=== PATIENT | male | born 1955 | race Caucasian/White ===

== ENCOUNTER 2017-02-21 09:50 | Emergency (ER) | payer MEDICARE ==
[2017-02-21 09:58] VITALS: BP 163/107; PULSE 104; TEMP 98.3; BMI 27.8
--- NOTE | 2017-02-21 10:54 | PDOC ---
History of Present Illness - General Chief Complaint: Pain Stated Complaint: rectal,abd PAIN,rash Time Seen by Provider: 02/21/17 10:19 - History of Present Illness Initial Comments: 02/21/17 10:46 61 yo M with h/o HTN, schitzoaffective, untreaed hep C, alpha 1 antitrypsin deficiency, and GERD who presents with abdominal pain. Reports for the past 2 weeks has been experiencing diffuse, worsening, crampy abdominal pain associated with nausea, fatigue, and loss of appetite. No identifiable alleviating or aggravating factors. Believes most of his pain is masked with methadone in daytime. Reports paroxysms of burning, sharp, shooting rectal pain not associated with bowel movements. States that he has lost 18 pounds in 2 months. Also endorses constipation attributed to Methadone treatment. Last bowel movement was yesterday and has had dark liquid stool. Denies blood in stool vomiting, hematemsis, fever/chills, SOB, cough, or urinary complaints. States that he has developed pruitic rash of upper extremities in past 2 weeks along with testicular shrinkage and pain. He believes that parasites are infecting his body and that he may possibly have cancer. He states that"black dots are exiting his pores," and has provided stool samples and of a previous hospitalization and Reports alcohol cessation 13 years ago denies tobacco use but states he uses vapor cigarettes 27 mg nicotine/day for past several years. Denies elicit drug use. No recent travels, camping, or hiking. Endorses increased PO fluid intake to help with symptoms. 02/21/17 12:07 Past History - Past Medical History Allergies/Adverse Reactions: Allergies Allergy/AdvReac Type Severity Reaction Status Date / Time Penicillins Allergy Mild Hives Verified 02/21/17 09:53 Home Medications: Ambulatory Orders Omeprazole [Prilosec] 40 mg PO DAILY 11/08/11 Quetiapine Fumarate [Seroquel -] 300 mg PO HS 07/01/13 Clonazepam [KlonoPIN] 2 mg PO DAILY 10/01/14 Methadone [Dolophine -] 110 mg PO DAILY 10/01/14 Quetiapine Fumarate [Seroquel -] 100 mg PO AM 10/01/14 Anemia: Yes (D/T ESOPHAGEAL VARICES) Asthma: Yes Cardiac Disorders: No CVA: No COPD: Yes Diabetes: No GI Disorders: Yes (ACID REFLUX) Disorders: No HTN: Yes Hypercholesterolemia: No Kidney Stones: No Psychiatric Problems: Yes (SCHIZO-AFFECTIVE.) Suicide Attempt (Hx): Yes (Last in 2009 tried to overdose. DENIES CURRENT IDEATIONS.) Seizures: Yes Other medical history: hx of heroin abuse - Surgical History Abdominal Surgery: Yes (esophageal varices) Appendectomy: No Cardiac Surgery: No Cholecystectomy: No Lung Surgery: No Neurologic Surgery: No Orthopedic Surgery: No - Reproductive History Testicular Surgery: No - Psycho/Social/Smoking Cessation Hx Anxiety: Yes Suicidal Ideation: No Smoking History: Former smoker Have you smoked in the past 12 months: No Number of Cigarettes Smoked Daily: 0 If you are a former smoker, when did you quit?: 06/2013 Cigars Per Day: 0 Information on smoking cessation initiated: No 'Breaking Loose' booklet given: 08/01/14 Hx Alcohol Use: No Drug/Substance Use Hx: Yes (hx of heroin abuse) Substance Use Type: None Hx Substance Use Treatment: Yes ([facility]) Review of Systems - Review of Systems Comments:: 02/21/17 11:11 GENERAL/CONSTITUTIONAL: No fever or chills. No weakness. HEAD, EYES, EARS, NOSE AND THROAT: + Neck pain. No change in vision. No ear pain or discharge. No sore throat.- CARDIOVASCULAR: No chest pain or shortness of breath RESPIRATORY: No cough, wheezing, or hemoptysis. GASTROINTESTINAL: + nausea and consitpation. No vomiting, diarrhea or constipation. GENITOURINARY: No dysuria, frequency, or change in urination. MUSCULOSKELETAL: No joint or muscle swelling or pain. No neck or back pain. SKIN: + rash NEUROLOGIC: + LE parasthesias. No headache, vertigo, loss of consciousness, or change in strength/sensation. ENDOCRINE: No increased thirst. No abnormal weight change HEMATOLOGIC/LYMPHATIC: No anemia, easy bleeding, or history of blood clots. ALLERGIC/IMMUNOLOGIC: No hives or skin allergy. *Physical Exam - Vital Signs Last Vital Signs Temp Pulse Resp BP Pulse Ox 98.3 F 104 H 18 163/107 98 02/21/17 09:54 02/21/17 09:54 02/21/17 09:54 02/21/17 09:54 02/21/17 09:54 - Physical Exam Comments: 02/21/17 11:14 GENERAL: Awake, alert, and fully oriented, in no acute distress HEAD: No signs of trauma, normocephalic, atraumatic EYES: PERRLA, EOMI, sclera anicteric, conjunctiva clear ENT: Auricles normal inspection, hearing grossly normal, nares patent, oropharynx clear without exudates. Moist mucosa NECK: Normal ROM, supple, no lymphadenopathy, JVD, or masses LUNGS: No distress, speaks full sentences, clear to auscultation bilaterally HEART: Regular rate and rhythm, normal S1 and S2, no murmurs, rubs or gallops, peripheral pulses normal and equal bilaterally. ABDOMEN: Nondistended, Soft, nontender, normoactive bowel sounds. No guarding, no rebound. No masses + Perirectal erythema EXTREMITIES: Normal inspection, Normal range of motion, no edema. No clubbing or cyanosis. SKIN: + circular excoriations present over upper and lower extremities. Warm, Dry, normal turgor, no rashes or lesions noted. ED Treatment Course - LABORATORY CBC & Chemistry Diagram: 02/21/17 10:48 02/21/17 11:20 Medical Decision Making - Medical Decision Making 02/21/17 11:19 61 yo M with h/o HTN, schitzoaffective, untreaed hep C, alpha 1 antitrypsin deficiency, and GERD who presents with abdominal pain. Complains of crampy abdominal pain of 2 weeks duration. Abdominal pain associated with spells of burning rectal pain. Also complains of pruitic rash of upper extremities and lower extremities, testicular shrinkage/pain. Physical exam unremarkable. He believes that parasites are infecting his body and that he may possibly have cancer. He states that "black dots are exiting his pores," and has provided home stool samples . Reports alcohol cessation 13 years ago denies tobacco use but states he uses vapor cigarettes 27 mg nicotine/day for past several years. Denies elicit drug use. No recent travels, camping, or hiking. DDx: Cirrhosis, scabies, ED Course: CBC, CMP, PT/INR, Trop UA Permethrin 5% Topical Cream 02/21/17 15:02 Cardiac labs unremarkable UA Neg Stable discharge *DC/Admit/Observation/Transfer Diagnosis at time of Disposition: Infestation by Sarcoptes scabiei - Discharge Dispostion Disposition: HOME Condition at time of disposition: Improved Admit: No - Referrals Referrals: Arturo Madrid [Primary Care Provider] - - Patient Instructions Printed Discharge Instructions: DI for Scabies Additional Instructions: Please return to ED if you experience any worsening abdominal pain, nausea, or vomiting.
[2017-02-21 11:36] LABS: BASOPHIL 0.5 % (0-2.0); EOSINOPHIL 0.4 % (0-4.5); MCH 27.3 pg (25.7-33.7); MCHC 31.5 g/dl (32.0-35.9); MEAN CELL VOLUME 86.5 fl (80-96); MEAN PLT VOLUME 7.3 fl (7.5-11.1); NEUTROPHILS 56.8 % (42.8-82.8); PLATELET COUNT 250 K/MM3 (134-434); RDW 22.7 % (11.9-15.9); WHITE BLOOD COUNT 2.8 K/mm3 (4.0-10.0)
[2017-02-21 11:48] LABS: ALBUMIN 3.9 g/dl (3.4-5.0); ANION GAP 5 (8-16); BILIRUBIN,TOTAL 0.2 mg/dL (0.2-1.0); CALCIUM 9.2 mg/dL (8.5-10.1); CO2 32 mmol/L (21-32); CREATININE 0.9 mg/dL (0.7-1.3); GLUCOSE,RANDOM 87 mg/dL (74-106); SGOT/AST 19 U/L (15-37); SGPT/ALT 29 U/L (12-78); TOT PROT 7.6 g/dl (6.4-8.2)
[2017-02-21 11:49] LABS: ALK PHOS 97 U/L (45-117)
[2017-02-21] MEDS ORDERED: PERMETHRIN 5% TOPICAL CREAM 60 GM TUBE TP ONE (12:25)
--- NOTE | 2017-02-21 12:45 | PDOC ---
Attending Attestation - Resident Resident Name: Tacho Soriano - ED Attending Attestation I have performed the following: I have examined & evaluated the patient, The case was reviewed & discussed with the resident, I agree w/resident's findings & plan, Exceptions are as noted - HPI HPI: 02/21/17 12:41 61-year-old male with multiple medical problems including schizoaffective disorder, hepatitis C, opiate dependence on methadone presents with variable complaints over unclear amount of time, most specifically he is here for new onset rash that is similar to past bouts of scabies. He is requesting permethrin cream. Vague abdominal complaints that are chronic. - Physicial Exam PE: 02/21/17 12:42 Vital signs normal, afebrile. Alert, cooperative. No active hallucinations or ideations. Abdomen is benign. Has container of "parasites" that he feels are falling out of his body. These are in fact inanimate objects, ? debris from the apartment neuro intact skin with scattered maculopapular lesions to arms, no confluent cellulitis/ abscess - Medical Decision Making 02/21/17 12:44 Patient seen and evaluated with the resident. I agree with the overall evaluation, assessment, and management with the following summary of visit: 61-year-old male with multiple complaints, specifically here for new onset rash that he feels this is scabies. Requesting permethrin, remaining complaints are nonspecific and chronic without red flags on history or physical exam. Labs show no evidence of anemia or leukocytosis or electrolyte abnormality No indication for emergent imaging We'll give permethrin and discharge with PMD follow-up Understands return criteria
[2017-02-21 13:07] LABS: ANISOCYTOSIS 1+; MICROCYTOSIS FEW; TEAR DROP CELLS 1+
[2017-02-21 13:09] LABS: URINE APPEARANCE CLEAR; URINE BILIRUBIN NEGATIVE (NEGATIVE); URINE BLOOD NEGATIVE (NEGATIVE); URINE COLOR LTYELLOW; URINE GLUCOSE (UA) NEGATIVE (NEGATIVE); URINE KETONE NEGATIVE (NEGATIVE); URINE LEUK ESTERASE TRACE (NEGATIVE); URINE NITRITE NEGATIVE (NEGATIVE); URINE PROTEIN NEGATIVE (NEGATIVE); URINE UROBILINOGEN NEGATIVE mg/dL (0.2-1.0)
[2017-02-21 13:20] LABS: URINE HYALINE CAST 13 /lpf; URINE MUCUS FEW; URINE WBC <1 /hpf (3-5)
[2017-02-21 13:37] LABS: TROPONIN I < 0.02 ng/ml (0.00-0.05)
[2017-02-21 13:38] LABS: CPK 123 IU/L (39-308)
[2017-02-21 14:09] LABS: HIV 1 & 2 AB NEGATIVE; HIV 1 AGp24 NEGATIVE
== END 2017-02-21 15:11 | disposition home or self-care (01) ==
LOC: JER 09:50
DX: B86 Scabies (principal)
CPT/HCPCS: 36415; 80053; 81003; 81015; 83690; 84484; 85025; 87389; 99282-25

== ENCOUNTER 2017-03-07 09:09 | Emergency (ER) | payer MEDICARE ==
[2017-03-07 09:23] VITALS: BP 126/85; PULSE 91; TEMP 99.3; BMI 26.4
--- NOTE | 2017-03-07 09:28 | PDOC ---
History of Present Illness - General Chief Complaint: Pain Stated Complaint: abdominal pain Time Seen by Provider: 03/07/17 09:27 - History of Present Illness Initial Comments: 03/07/17 09:28 61 yo male with 61 yo M with h/o schitzoaffective disorder and HCV and multiple ED visits with c/o abdominal pain and "intestinal tapeworms" since November presenting with c/o abdominal tape word leukopenic on last visit and endorses leukopenia (1.9) at [facility] fungal infection evidence of bug bites Ddx: Psychogenic, bug bites, drug induced leukopenia,Candidal intertrigo Plan CBC, CMP Evaluate for cellulitis topical Nystatin Reassess 03/07/17 13:41 Past History - Past Medical History Allergies/Adverse Reactions: Allergies Allergy/AdvReac Type Severity Reaction Status Date / Time Penicillins Allergy Mild Hives Verified 02/21/17 09:53 Home Medications: Ambulatory Orders Omeprazole [Prilosec] 40 mg PO DAILY 11/08/11 Quetiapine Fumarate [Seroquel -] 300 mg PO HS 07/01/13 Clonazepam [KlonoPIN] 2 mg PO DAILY 10/01/14 Methadone [Dolophine -] 100 mg PO DAILY 10/01/14 Quetiapine Fumarate [Seroquel -] 100 mg PO AM 10/01/14 Clonidine HCl [Clonidine HCl ER] 0.1 mg PO BID 03/07/17 Anemia: Yes (D/T ESOPHAGEAL VARICES) Asthma: Yes Cardiac Disorders: No CVA: No COPD: Yes Diabetes: No GI Disorders: Yes (ACID REFLUX) Disorders: No HTN: Yes Hypercholesterolemia: No Kidney Stones: No Psychiatric Problems: Yes (SCHIZO-AFFECTIVE.) Suicide Attempt (Hx): Yes (Last in 2009 tried to overdose. DENIES CURRENT IDEATIONS.) Seizures: Yes Other medical history: SCABBIES - Surgical History Abdominal Surgery: Yes (esophageal varices) Appendectomy: No Cardiac Surgery: No Cholecystectomy: No Lung Surgery: No Neurologic Surgery: No Orthopedic Surgery: No - Reproductive History Testicular Surgery: No - Psycho/Social/Smoking Cessation Hx Anxiety: No Suicidal Ideation: No Smoking History: Former smoker Have you smoked in the past 12 months: No Number of Cigarettes Smoked Daily: 0 If you are a former smoker, when did you quit?: 2013 Cigars Per Day: 0 Information on smoking cessation initiated: No 'Breaking Loose' booklet given: 08/01/14 Hx Alcohol Use: Yes (hx) Drug/Substance Use Hx: Yes (methadone) Substance Use Type: None Hx Substance Use Treatment: Yes ([facility]) *Physical Exam - Vital Signs Last Vital Signs Temp Pulse Resp BP Pulse Ox 99.3 F 91 H 19 126/85 97 03/07/17 09:20 03/07/17 09:20 03/07/17 09:20 03/07/17 09:20 03/07/17 09:20 ED Treatment Course - LABORATORY CBC & Chemistry Diagram: 03/07/17 11:46 03/07/17 11:46 Medical Decision Making - Medical Decision Making 03/07/17 09:28 03/07/17 12:37 Checked on patient who is sleeping in bed. 03/07/17 13:36 03/07/17 13:36 CBC WBC 1.9 K/mm3 (4.0-10.0) L* D 03/07/17 11:46 RBC 3.05 M/mm3 (4.00-5.60) L D 03/07/17 11:46 Hgb 8.4 GM/dL (11.7-16.9) L D 03/07/17 11:46 Hct 26.6 % (35.4-49) L D 03/07/17 11:46 MCV 87.1 fl (80-96) 03/07/17 11:46 MCH 27.6 pg (25.7-33.7) 03/07/17 11:46 MCHC 31.7 g/dl (32.0-35.9) L 03/07/17 11:46 RDW 19.9 % (11.9-15.9) H D 03/07/17 11:46 Plt Count 167 K/MM3 (134-434) D 03/07/17 11:46 MPV 7.7 fl (7.5-11.1) 03/07/17 11:46 Neutrophils % 59.4 % (42.8-82.8) 03/07/17 11:46 Lymphocytes % 37.5 % (8-40) 03/07/17 11:46 Monocytes % 1.2 % (3.8-10.2) L 03/07/17 11:46 Eosinophils % 1.7 % (0-4.5) D 03/07/17 11:46 Basophils % 0.2 % (0-2.0) 03/07/17 11:46 Worsening pancytopenia CMP Sodium 141 mmol/L (136-145) 03/07/17 11:46 Potassium 4.2 mmol/L (3.5-5.1) 03/07/17 11:46 Chloride 104 mmol/L (98-107) 03/07/17 11:46 Carbon Dioxide 30 mmol/L (21-32) 03/07/17 11:46 Anion Gap 7 (8-16) L 03/07/17 11:46 BUN 9 mg/dL (7-18) D 03/07/17 11:46 Creatinine 0.7 mg/dL (0.7-1.3) D 03/07/17 11:46 Creat Clearance w eGFR > 60 (>60) 03/07/17 11:46 Random Glucose 81 mg/dL (74-106) 03/07/17 11:46 Calcium 8.1 mg/dL (8.5-10.1) L 03/07/17 11:46 Total Bilirubin 0.2 mg/dL (0.2-1.0) 03/07/17 11:46 AST 17 U/L (15-37) 03/07/17 11:46 ALT 31 U/L (12-78) 03/07/17 11:46 Alkaline Phosphatase 114 U/L (45-117) 03/07/17 11:46 Total Protein 5.7 g/dl (6.4-8.2) L D 03/07/17 11:46 Albumin 2.6 g/dl (3.4-5.0) L D 03/07/17 11:46 poor nutrition Put in call to Dr. De Santiago (admitting for Dr. Hutchinson) to request admission d/t pancytopenia and concern over patient ability to followup 03/07/17 15:17 Patient obscounded from the ED Attempted to call patient contact number and it was disconnected Contacted the office of Dr. Madrid, and informed him of the patient's condition Called patient contact numbers from Dr. Madrid [phone] (home) - left message that he should follow up with PCP [phone] (emergency) - person who answered claimed it was not a valid number. 03/07/17 15:39 *DC/Admit/Observation/Transfer Diagnosis at time of Disposition: Eloped - Discharge Dispostion Disposition: ELOPED - Referrals Referrals: Arturo Madrid [Primary Care Provider] -
[2017-03-07 12:04] LABS: BASOPHIL 0.2 % (0-2.0); EOSINOPHIL 1.7 % (0-4.5); MCH 27.6 pg (25.7-33.7); MCHC 31.7 g/dl (32.0-35.9); MEAN CELL VOLUME 87.1 fl (80-96); MEAN PLT VOLUME 7.7 fl (7.5-11.1); NEUTROPHILS 59.4 % (42.8-82.8); PLATELET COUNT 167 K/MM3 (134-434); RDW 19.9 % (11.9-15.9)
--- NOTE | 2017-03-07 12:10 | PDOC ---
Attending Attestation - Resident Resident Name: Alfonso Hartman - ED Attending Attestation I have performed the following: I have examined & evaluated the patient, The case was reviewed & discussed with the resident, I agree w/resident's findings & plan, Exceptions are as noted - HPI HPI: 03/07/17 12:06 61y/o M p/w c/o seeing tapeworms come out of his body. states affecting his appetite but no specific pain or obstructive/infectious sxs other than reported diarrhea seen here for similar complaints (plus rash at the time) on 02/21. Rash improved with permethrin - Physicial Exam PE: 03/07/17 12:08 VSS well appearing in stretcher resolving skin lesions, now isolated maculopapular on the distal arms without cellulitis/abscess abdomen benign has scattered debris collected in a bottle at bedside that he is referring to as tapeworms - Medical Decision Making 03/07/17 12:09 61y/o M with nonspecific, persistent complaints. ? severe anxiety v. VH, denies any SI/HI/AH. reportedly told by his PCP to see psych but noncompliant in the past, no other acute psych issues. abdomen benign, no red flags on history/ physical exam check basic labs discuss with patient whether he is willing to see psychiatry here reassess/dispo 03/07/17 13:37 labs notable for gradual and progressive pancytopenia. Will arrange admission <Tha Calvert - Last Filed: 03/07/17 13:37> - Medical Decision Making 03/07/17 14:37 A call was placed to Dr. Gómez at 1:45 PM at his office. Awaiting on a call back. A call was placed to Dr. Gómez at 2:08 PM at his service. Awaiting on a call back. A call was placed to Dr. Gómez at 2:33 PM. Case was discussed with Dr. Gómez at 2:36 PM. <Randi Lopez - Last Filed: 03/07/17 14:37>
[2017-03-07 13:01] LABS: WHITE BLOOD COUNT 1.9 K/mm3 (4.0-10.0)
[2017-03-07 13:16] LABS: GLUCOSE,RANDOM 81 mg/dL (74-106)
[2017-03-07 13:17] LABS: ALBUMIN 2.6 g/dl (3.4-5.0); ANION GAP 7 (8-16); BILIRUBIN,TOTAL 0.2 mg/dL (0.2-1.0); CALCIUM 8.1 mg/dL (8.5-10.1); CO2 30 mmol/L (21-32); CREATININE 0.7 mg/dL (0.7-1.3); SGOT/AST 17 U/L (15-37); SGPT/ALT 31 U/L (12-78); TOT PROT 5.7 g/dl (6.4-8.2)
[2017-03-07 13:18] LABS: ALK PHOS 114 U/L (45-117)
== END 2017-03-07 14:35 | disposition left against medical advice (07) ==
LOC: JER 09:09
DX: R10.84 Generalized abdominal pain (principal); F25.9 Schizoaffective disorder, unspecified; Z91.5 Personal history of self-harm
CPT/HCPCS: 36415; 80053; 85025; 99283-25

== ENCOUNTER 2017-04-06 08:05 | Inpatient (IN) | payer MEDICARE ==
[2017-04-06 10:34] VITALS: BMI 30.4
--- NOTE | 2017-04-06 12:57 | HP ---
CIWA Score - CIWA Score Nausea/Vomitin-No Nausea/No Vomiting Muscle Tremors: 4-Moderate,w/Arms Extend Anxiety: 3 Agitation: 4-Moderately Restless Paroxysmal Sweats: 3 Orientation: 0-Oriented Tacttile Disturbances: 0-None Auditory Disturbances: 0-None Visual Disturbances: 0-None Headache: 0-None Present CIWA-Ar Total Score: 14 Admission ROS BHS - HPI Chief Complaint: I am here for detox. Allergies/Adverse Reactions: Allergies Allergy/AdvReac Type Severity Reaction Status Date / Time Penicillins Allergy Severe Hives Verified 04/06/17 10:52 History of Present Illness: pt is a 61yr old male with a history of xanax dependance seeking detox for treatment. Exam Limitations: No Limitations - Ebola screening Have you traveled outside of the country in the last 21 days: No Have you had contact with anyone from an Ebola affected area: No Have you been sick,other than usual withdrawal symptoms: No Do you have a fever: No - Review of Systems Constitutional: Chills, Night Sweats EENT: reports: No Symptoms Reported Respiratory: reports: No Symptoms reported Cardiac: reports: Syncope GI: reports: Constipated, Poor Appetite, Poor Fluid Intake : reports: No Symptoms Reported Musculoskeletal: reports: No Symptoms Reported Integumentary: reports: Flushing, Sweating Neuro: reports: Seizure (last seizure 2 yrs ago), Tingling, Tremors Endocrine: reports: Excessive Sweating, Flushing, Intolerance to Cold, Intolerance to Heat Hematology: reports: Anemia Psychiatric: reports: Judgement Intact, Mood/Affect Appropiate, Orientated x3, Agitated, Anxious Other Systems: Reviewed and Negative Patient History - Patient Medical History Hx Anemia: Yes (D/T ESOPHAGEAL VARICES/hemolytic anemia) Hx Asthma: Yes Hx Chronic Obstructive Pulmonary Disease (COPD): No Hx Cancer: No Hx Cardiac Disorders: No Hx Congestive Heart Failure: No Hx Hypertension: Yes Hx Hypercholesterolemia: No Hx Pacemaker: No HX Cerebrovascular Accident: No Hx Seizures: Yes (drug related-last episode was in 2014) Hx Dementia: No Hx Diabetes: No Hx Gastrointestinal Disorders: Yes (acid reflux) Hx Genitourinary Disorders: No Hx Sexually Transmitted Disorders: No Hx Renal Disease (ESRD): No Hx Human Immunodeficiency Virus (HIV): No (NEGATIVE HX) Hx Hepatitis C: Yes (INTERFERON THERAPY IN THE PAST.) Hx Depression: Yes Hx Suicide Attempt: No Hx Bipolar Disorder: No Hx Schizophrenia: Yes (schizoaffective disorder/manic depression) - Patient Surgical History Past Surgical History: Yes Hx Neurologic Surgery: No Hx Cataract Extraction: No Hx Cardiac Surgery: No Hx Lung Surgery: No Hx Breast Surgery: No Hx Breast Biopsy: No Hx Abdominal Surgery: No Hx Appendectomy: No Hx Cholecystectomy: No Hx Genitourinary Surgery: No Hx Section: No Hx Orthopedic Surgery: No Other Surgical History: tonsillectomy Anesthesia Reaction: No - PPD History Previous Implant?: Yes Documented Results: Positive w/o proof Implanted On Prior [facility] Admission?: No PPD to be Administered?: No - Reproductive History Patient is a Female of Child Bearing Age (11 -55 yrs old): No - Smoking Cessation Smoking history: Current every day smoker Have you smoked in the past 12 months: Yes Aproximately how many cigarettes per day: 8 If you are a former smoker, when did you quit?: 2013 Cigars Per Day: 0 Hx Chewing Tobacco Use: No Initiated information on smoking cessation: Yes 'Breaking Loose' booklet given: 04/06/17 - Substance & Tx. History Hx Alcohol Use: No Hx Substance Use: Yes Substance Use Type: Cocaine, Heroin, Tranquilizers Hx Substance Use Treatment: Yes (last detox 2013 [facility], [place]) - Substances Abused Cocaine Route: Injection Frequency: 1-3 times last 30 days Amount used: $10 Age of first use: 18 Date of Last Use: 04/05/17 Heroin Route: Injection Frequency: 1-3 times last 30 days Amount used: 1-2 bags Age of first use: 33 Date of Last Use: 04/04/17 Xanax Route: Oral Frequency: Daily Amount used: 4-6 mg. Age of first use: 33 Date of Last Use: 04/06/17 Family Disease History - Family Disease History Family Disease History: Other: Father (alzheimers ), Mother (neurotic,valium abuse ) Admission Physical Exam S - Vital Signs Vital Signs: Vital Signs - 24 hr 04/06/17 10:30 Temperature 97.1 F L Pulse Rate 78 Respiratory 20 Rate Blood Pressure 155/74 - Physical General Appearance: Yes: Appropriately Dressed, Moderate Distress, Tremorous, Irritable, Sweating, Anxious HEENTM: Yes: Hearing grossly Normal, Normal Voice Respiratory: Yes: Lungs Clear, Normal Breath Sounds, No Respiratory Distress Neck: Yes: No masses,lesions,Nodules Breast: Yes: Within Normal Limits Cardiology: Yes: Regular Rhythm, Regular Rate, S1, S2 Abdominal: Yes: Normal Bowel Sounds, Non Tender, Soft Genitourinary: Yes: Within Normal Limits Back: Yes: Normal Inspection Musculoskeletal: Yes: full range of Motion, Gait Steady Extremities: Yes: Normal Capillary Refill, Normal Inspection, Non-Tender, Tremors Neurological: Yes: Fully Oriented, Alert, Normal Response Integumentary: Yes: Normal Color, Diaphoresis, Track [place]les Lymphatic: Yes: Within Normal Limits - Diagnostic (1) GERD (gastroesophageal reflux disease) Current Visit: Yes Status: Chronic Qualifiers: Esophagitis presence: without esophagitis Qualified Code(s): K21.9 - Gastro-esophageal reflux disease without esophagitis; K21.9 - Gastro- esophageal reflux disease without esophagitis; K21.9 - Gastro-esophageal reflux disease without esophagitis (2) HTN (hypertension) Current Visit: Yes Status: Chronic Qualifiers: Hypertension type: essential hypertension Qualified Code(s): I10 - Essential (primary) hypertension; I10 - Essential (primary) hypertension; I10 - Essential (primary) hypertension (3) Hepatitis C Current Visit: Yes Status: Chronic Qualifiers: Viral hepatitis chronicity: chronic Hepatic coma status: without hepatic coma Qualified Code(s): B18.2 - Chronic viral hepatitis C; B18.2 - Chronic viral hepatitis C; B18.2 - Chronic viral hepatitis C; B18.2 - Chronic viral hepatitis C (4) Methadone maintenance therapy patient Current Visit: Yes Status: Chronic Comment: [facility]. (5) Sedative, hypnotic or anxiolytic dependence with withdrawal, uncomplicated Current Visit: Yes Status: Chronic BHS Breath Alcohol Content Breath Alcohol Content: 0 Urine Drug Screen - Results Drug Screen Negative: No Urine Drug Screen Results: VÍCTOR-Cocaine, OPI-Opiates, BZO-Benzodiazepines, MTD- Methadone, TCA-Tricyclic Antidepress
[2017-04-06] MEDS ORDERED: LOPERAMIDE HCL 2 MG CAPSULE PO PRN (12:58)
[2017-04-06] MEDS ORDERED: diphenhydrAMINE HCL 50 MG CAPSULE PO PRN (12:58)
[2017-04-06] MEDS ORDERED: MENTHOL/PHENOL 1 EACH UD MM PRN (12:58)
[2017-04-06] MEDS ORDERED: MAG HYDROX/AL HYDROX/SIMETH 30 ML UNIT-DOSE CUP PO PRN (12:58)
[2017-04-06] MEDS ORDERED: IBUPROFEN 400 MG TABLET (FP) PO PRN (12:58)
[2017-04-06] MEDS ORDERED: hydrOXYzine PAMOATE 50 MG CAPSULE (FP) PO PRN (12:58)
[2017-04-06] MEDS ORDERED: MAGNESIUM CITRATE 300 ML BOTTLE PO PRN (12:58)
[2017-04-06] MEDS ORDERED: P-EPHED 60MG/TRIPROLIDI 2.5MG TABLET PO PRN (12:58)
[2017-04-06] MEDS ORDERED: guaiFENesin/D-METHORPHAN HB 10 ML UNIT-DOSE CUPS PO PRN (12:58)
[2017-04-06] MEDS ORDERED: diazePAM 5 MG TABLET PO ONE (12:58)
[2017-04-06] MEDS ORDERED: ALBUTEROL SO4 18 GM HFA INHALER IH PRN (13:01)
[2017-04-06] MEDS: diazePAM 5 MG TABLET PO SCH ×2 (14:51→22:12)
[2017-04-06] MEDS: NICOTINE 21 MG/24 HOURS TOPICAL PATCH TD SCH (15:21)
[2017-04-06 16:38] LABS: MCH 28.3 pg (25.7-33.7); MCHC 32.3 g/dl (32.0-35.9); MEAN CELL VOLUME 87.6 fl (80-96); MEAN PLT VOLUME 8.1 fl (7.5-11.1); PLATELET COUNT 115 K/MM3 (134-434); RDW 18.1 % (11.9-15.9)
[2017-04-06 16:41] LABS: WHITE BLOOD COUNT 1.4 K/mm3 (4.0-10.0)
[2017-04-06 17:02] LABS: ALBUMIN 3.2 g/dl (3.4-5.0); ALK PHOS 87 U/L (45-117); ANION GAP 9 (8-16); BILIRUBIN,TOTAL 0.2 mg/dL (0.2-1.0); CALCIUM 8.5 mg/dL (8.5-10.1); CO2 30 mmol/L (21-32); GLUCOSE,RANDOM 110 mg/dL (74-106); SGOT/AST 23 U/L (15-37); SGPT/ALT 19 U/L (12-78); TOT PROT 6.3 g/dl (6.4-8.2)
[2017-04-06 18:18] LABS: PLATELET ESTIMATE SLT DECREASED (NORMAL)
[2017-04-06 18:19] LABS: PLATELET COMMENT2 NO CLOTTING DETECTED; PLATELET COMMENT3 FEW LARGE PLTS; TOTAL CELLS COUNTED 100
--- NOTE | 2017-04-06 18:20 | PN ---
[facility] Progress Note Note: Psychiatry Attending's note : Came to interview this patient. Newly admitted to [address] [place] [id number]. Found sound asleep. Examination deferred.
[2017-04-06] MEDS: diazePAM 5 MG TABLET PO PRN (20:00)
[2017-04-06 20:24] LABS: URINE APPEARANCE CLEAR; URINE BILIRUBIN NEGATIVE (NEGATIVE); URINE BLOOD NEGATIVE (NEGATIVE); URINE COLOR YELLOW; URINE GLUCOSE (UA) NEGATIVE (NEGATIVE); URINE KETONE NEGATIVE (NEGATIVE); URINE NITRITE NEGATIVE (NEGATIVE); URINE PROTEIN NEGATIVE (NEGATIVE); URINE UROBILINOGEN NEGATIVE mg/dL (0.2-1.0)
[2017-04-06] MEDS: THIAMINE HCL 100 MG TABLET (FP) PO SCH (22:12)
[2017-04-06] MEDS: cloNIDine HCL 0.1 MG TABLET PO SCH (22:12)
[2017-04-06 22:38] LABS: URINE LEUK ESTERASE Negative (NEGATIVE)
[2017-04-07] MEDS ORDERED: METHADONE HCL 40 MG DISPERSABLE TABLET ONE (04:28)
[2017-04-07] MEDS ORDERED: METHADONE HCL 10 MG TABLET ONE (04:28)
[2017-04-07] MEDS: diazePAM 5 MG TABLET PO SCH ×3 (05:40→22:26)
[2017-04-07] MEDS: METHADONE 80 MG, METHADONE 20 MG PO SCH (05:41)
[2017-04-07] MEDS ORDERED: METHADONE HCL 10 MG TABLET PO SCH (06:00)
[2017-04-07] MEDS: ACETAMINOPHEN 325 MG TABLET (FP) PO PRN (07:05)
--- NOTE | 2017-04-07 09:30 | EKG ---
Test Reason : Blood Pressure : / mmHG Vent. Rate : 069 BPM Atrial Rate : 069 BPM P-R Int : 138 ms QRS Dur : 086 ms QT Int : 452 ms P-R-T Axes : 079 077 069 degrees QTc Int : 484 ms NORMAL SINUS RHYTHM PROLONGED QT ABNORMAL ECG Confirmed by MATTHEW CALDWELL MD ([id number]) on 04/07/2017 9:29:41 AM Referred By: Confirmed By:MATTHEW CALDWELL MD
[2017-04-07] MEDS: diazePAM 5 MG TABLET PO PRN ×2 (09:42→17:11)
[2017-04-07] MEDS ORDERED: NICOTINE 14 MG/24 HOURS TOPICAL PATCH TD SCH ×2 (10:00)
[2017-04-07] MEDS: NICOTINE 21 MG/24 HOURS TOPICAL PATCH TD SCH (11:00)
[2017-04-07] MEDS: PRENATAL VITAMINS W/ FOLIC ACID TABLET (FP) PO SCH (11:00)
[2017-04-07] MEDS: cloNIDine HCL 0.1 MG TABLET PO SCH ×2 (11:00→22:26)
[2017-04-07] MEDS: PANTOPRAZOLE 40 MG TABLET (FP) PO SCH (11:01)
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
--- NOTE | 2017-04-07 12:03 | PN ---
[facility] CIWA - CIWA Score Nausea/Vomitin Muscle Tremors: 3 Anxiety: 3 Agitation: 3 Paroxysmal Sweats: 1-Minimal Palms Moist Orientation: 0-Oriented Tacttile Disturbances: 1-Very Mild Itch/Numbness Auditory Disturbances: 1-Very Mild Visual Disturbances: 0-None Headache: 2-Mild CIWA-Ar Total Score: 17 BHS Progress Note (SOAP) Subjective: alert,irritable,anxious,agitated,tremor,constipated Objective: 04/07/17 11:59 Vital Signs Temperature 97.2 F L 04/07/17 09:46 Pulse Rate 72 04/07/17 09:46 Respiratory Rate 16 04/07/17 09:46 Blood Pressure 129/68 04/07/17 09:46 O2 Sat by Pulse Oximetry (%) ekg nsr,prolong qt no chest pain,no sob,no dizziness Laboratory Last Values WBC 1.4 K/mm3 (4.0-10.0) L* 04/06/17 13:00 RBC 3.24 M/mm3 (4.00-5.60) L 04/06/17 13:00 Hgb 9.2 GM/dL (11.7-16.9) L 04/06/17 13:00 Hct 28.4 % (35.4-49) L 04/06/17 13:00 MCV 87.6 fl (80-96) 04/06/17 13:00 MCH 28.3 pg (25.7-33.7) 04/06/17 13:00 MCHC 32.3 g/dl (32.0-35.9) 04/06/17 13:00 RDW 18.1 % (11.9-15.9) H 04/06/17 13:00 Plt Count 115 K/MM3 (134-434) L D 04/06/17 13:00 MPV 8.1 fl (7.5-11.1) 04/06/17 13:00 Total Counted 100 04/06/17 13:00 Neutrophils % (Manual) 30 % (42.8-82.8) L 04/06/17 13:00 Lymphocytes % (Manual) 64 % (8-40) H 04/06/17 13:00 Monocytes % (Manual) 4 % (3.8-10.2) 04/06/17 13:00 Eosinophils % (Manual) 2 % (0-4.5) 04/06/17 13:00 Other Cell Type 04/06/17 13:00 Platelet Estimate Slt decreased (NORMAL) 04/06/17 13:00 Platelet Comment No clumping noted 04/06/17 13:00 Platelet Comment No clotting detected 04/06/17 13:00 Sodium 142 mmol/L (136-145) 04/06/17 13:00 Potassium 3.9 mmol/L (3.5-5.1) 04/06/17 13:00 Chloride 103 mmol/L (98-107) 04/06/17 13:00 Carbon Dioxide 30 mmol/L (21-32) 04/06/17 13:00 Anion Gap 9 (8-16) 04/06/17 13:00 BUN 13 mg/dL (7-18) D 04/06/17 13:00 Creatinine 1.0 mg/dL (0.7-1.3) D 04/06/17 13:00 Creat Clearance w eGFR > 60 (>60) 04/06/17 13:00 Random Glucose 110 mg/dL (74-106) H D 04/06/17 13:00 Calcium 8.5 mg/dL (8.5-10.1) 04/06/17 13:00 Total Bilirubin 0.2 mg/dL (0.2-1.0) 04/06/17 13:00 AST 23 U/L (15-37) D 04/06/17 13:00 ALT 19 U/L (12-78) D 04/06/17 13:00 Alkaline Phosphatase 87 U/L (45-117) D 04/06/17 13:00 Total Protein 6.3 g/dl (6.4-8.2) L 04/06/17 13:00 Albumin 3.2 g/dl (3.4-5.0) L D 04/06/17 13:00 Urine Color Yellow 04/06/17 19:43 Urine Appearance Clear 04/06/17 19:43 Urine pH 6.0 (5.0-8.0) 04/06/17 19:43 Ur Specific [place] 1.020 (1.005-1.025) 04/06/17 19:43 Urine Protein Negative (NEGATIVE) 04/06/17 19:43 Urine Glucose (UA) Negative (NEGATIVE) 04/06/17 19:43 Urine Ketones Negative (NEGATIVE) 04/06/17 19:43 Urine Blood Negative (NEGATIVE) 04/06/17 19:43 Urine Nitrite Negative (NEGATIVE) 04/06/17 19:43 Urine Bilirubin Negative (NEGATIVE) 04/06/17 19:43 Urine Urobilinogen Negative mg/dL (0.2-1.0) 04/06/17 19:43 Ur Leukocyte Esterase Negative (NEGATIVE) 04/06/17 19:43 RPR Titer Nonreactive (NONREACTIVE) 04/06/17 13:00 Assessment: 04/07/17 12:02 withdrawal symptom Plan: continue detox,pancytopenia,repeat cbc,cmp,inr in am
[2017-04-07] MEDS: QUEtiapine FUMARATE 200 MG TABLET PO SCH ×2 (12:33→22:26)
[2017-04-07] MEDS: MAGNESIUM HYDROX 2400MG/30ML ORAL SUSPENSION 30 ML CUP PO PRN (12:49)
[2017-04-07] MEDS: DOCUSATE SODIUM 100 MG CAPSULE (FP) PO SCH (22:26)
[2017-04-07] MEDS: THIAMINE HCL 100 MG TABLET (FP) PO SCH (22:26)
[2017-04-08] MEDS: diazePAM 5 MG TABLET PO PRN ×2 (02:51→17:01)
[2017-04-08] MEDS: ACETAMINOPHEN 325 MG TABLET (FP) PO PRN (02:52)
[2017-04-08] MEDS ORDERED: METHADONE HCL 10 MG TABLET ONE (04:53)
[2017-04-08] MEDS ORDERED: METHADONE HCL 40 MG DISPERSABLE TABLET ONE (04:53)
[2017-04-08] MEDS: DOCUSATE SODIUM 100 MG CAPSULE (FP) PO SCH ×3 (05:25→22:53)
[2017-04-08] MEDS: METHADONE 80 MG, METHADONE 20 MG PO SCH (05:25)
[2017-04-08] MEDS: PRENATAL VITAMINS W/ FOLIC ACID TABLET (FP) PO SCH (10:47)
[2017-04-08] MEDS: cloNIDine HCL 0.1 MG TABLET PO SCH ×2 (10:47→22:53)
[2017-04-08] MEDS: diazePAM 5 MG TABLET PO SCH ×2 (10:48→22:53)
[2017-04-08] MEDS: PANTOPRAZOLE 40 MG TABLET (FP) PO SCH (10:48)
[2017-04-08] MEDS: QUEtiapine FUMARATE 200 MG TABLET PO SCH ×2 (10:48→22:53)
[2017-04-08] MEDS: NICOTINE 21 MG/24 HOURS TOPICAL PATCH TD SCH (10:48)
[2017-04-08 10:56] LABS: MCH 27.2 pg (25.7-33.7); MCHC 31.6 g/dl (32.0-35.9); MEAN CELL VOLUME 85.9 fl (80-96); MEAN PLT VOLUME 8.3 fl (7.5-11.1); PLATELET COUNT 138 K/MM3 (134-434); WHITE BLOOD COUNT 2.3 K/mm3 (4.0-10.0)
[2017-04-08] MEDS ORDERED: SODIUM PHOSPHATE/NA BIPHOS 133 ML ENEMA PR ONE (11:03)
[2017-04-08 11:05] LABS: ALBUMIN 3.2 g/dl (3.4-5.0); ANION GAP 9 (8-16); CALCIUM 8.3 mg/dL (8.5-10.1); CO2 28 mmol/L (21-32); GLUCOSE,RANDOM 112 mg/dL (74-106)
[2017-04-08 11:08] LABS: ALK PHOS 91 U/L (45-117); BILIRUBIN,TOTAL 0.4 mg/dL (0.2-1.0); CREATININE 0.7 mg/dL (0.7-1.3); SGOT/AST 15 U/L (15-37); SGPT/ALT 17 U/L (12-78); TOT PROT 6.2 g/dl (6.4-8.2)
[2017-04-08 11:11] LABS: PROTHROMBIN TIME (PATIENT) 11.3 SEC (9.98-11.88)
--- NOTE | 2017-04-08 12:13 | PN ---
S CIWA - CIWA Score Nausea/Vomitin Muscle Tremors: 3 Anxiety: 3 Agitation: 3 Paroxysmal Sweats: 1-Minimal Palms Moist Orientation: 0-Oriented Tacttile Disturbances: 1-Very Mild Itch/Numbness Auditory Disturbances: 1-Very Mild Visual Disturbances: 0-None Headache: 2-Mild CIWA-Ar Total Score: 17 BHS Progress Note (SOAP) Subjective: alert,irritable,anxious,tremor,constipation,interrupted sleep Objective: 04/08/17 12:12 Vital Signs Temperature 97.5 F L 04/08/17 10:32 Pulse Rate 112 H 04/08/17 10:32 Respiratory Rate 20 04/08/17 10:32 Blood Pressure 145/66 04/08/17 10:32 O2 Sat by Pulse Oximetry (%) 04/08/17 12:13 04/08/17 04/08/17 04/08/17 08:00 08:00 08:30 WBC 2.3 L D RBC 3.31 L Hgb 9.0 L Hct 28.4 L MCV 85.9 MCHC 31.6 L RDW 18.0 H Plt Count 138 INR 1.00 Sodium 139 Potassium 4.3 Chloride 102 Carbon Dioxide 28 Anion Gap 9 BUN 14 Creatinine 0.7 D Assessment: 04/08/17 12:13 withdrawal symptom Plan: continue detox,fleet enema
--- NOTE | 2017-04-08 12:17 | PN ---
Psychiatric Progress Note Vital Signs: Vital Signs Period Temp Pulse Resp BP Sys/Sanches Pulse Ox Last 24 Hr 94.2 F-98.2 F 70-112 18-20 111-145/64-80 Date of Session: 04/08/17 Chief Complaint:: " I was angry.I don't want to kill myself.I apologize for my words." HPI: Day 3 of detoxification treatment.Patient is needy,demanding,perseverative but adherent to his medications.Psychiatric consult is sought in response to patient's alleged suicidal threats. ROS: Patient is ambulatory,steady.Alert and fully oriented.Cooperative with this interviewer.No evidence of distress.No somatic complaints offered at this time. Current Medications: Active Medications Generic Name Dose Route Start Last Admin Trade Name Freq PRN Reason Stop Dose Admin Acetaminophen 650 mg 04/06/17 12:58 04/08/17 02:52 Tylenol - PO 650 mg Q4H PRN Administration FEVER OR PAIN Al Hydroxide/Mg Hydroxide 30 ml 04/06/17 12:58 04/07/17 12:33 Mylanta Oral Suspension - PO 30 ml Q6H PRN Administration DYSPEPSIA Albuterol Sulfate 2 puff 04/06/17 13:01 04/08/17 02:52 Ventolin Hfa Inhaler - IH 2 inh Q4H PRN Administration ASTHMA Clonidine 0.2 mg 04/06/17 22:00 04/08/17 10:47 Catapres - PO 0.2 mg BID WALTER Administration Diazepam 10 mg 04/06/17 12:58 04/08/17 02:51 Valium - PO 04/09/17 12:57 10 mg Q4H PRN Administration WITHDRAWAL(CONT SUBST) Diazepam 5 mg 04/08/17 10:00 04/08/17 10:48 Valium - PO 04/09/17 22:01 5 mg BID WALTER Administration Diazepam 5 mg 04/10/17 10:00 Valium - PO 04/10/17 10:01 DAILY WALTER Diphenhydramine HCl 50 mg 04/06/17 12:58 Benadryl - PO HSMR1 PRN INSOMNIA Docusate Sodium 100 mg 04/07/17 22:00 04/08/17 05:25 Colace - PO 100 mg TID WALTER Administration Eucalyptus/Menthol/Phenol/Sorbitol 1 each 04/06/17 12:58 Cepastat Lozenge - MM Q4H PRN SORE THROAT Guaifenesin 10 ml 04/06/17 12:58 Robitussin Dm - PO Q6H PRN COUGH Hydroxyzine Pamoate 50 mg 04/06/17 12:58 Vistaril - PO Q4H PRN AGITATION Ibuprofen 400 mg 04/06/17 12:58 04/07/17 12:52 Motrin - PO 400 mg Q6H PRN Administration SEVERE PAIN Loperamide HCl 4 mg 04/06/17 12:58 Imodium - PO Q6H PRN DIARRHEA Magnesium Citrate 300 ml 04/06/17 12:58 04/07/17 22:26 Citroma - PO 300 ml Q48H PRN Administration CONSTIPATION Magnesium Hydroxide 30 ml 04/06/17 12:58 04/07/17 12:49 Milk Of Magnesia - PO 30 ml DAILY PRN Administration CONSTIPATION Methadone HCl 80 mg/ Methadone 100 mg 04/07/17 06:00 04/08/17 05:25 HCl 20 mg PO 04/13/17 05:59 100 mg DAILY@0600 WALTER Administration Nicotine 21 mg 04/06/17 15:00 04/08/17 10:48 Nicoderm Patch - TD 21 mg DAILY WALTER Administration Pantoprazole Sodium 40 mg 04/07/17 10:00 04/08/17 10:48 Protonix - PO 40 mg DAILY WALTER Administration Multivit/Folic Acid/Iron 1 tab 04/07/17 10:00 04/08/17 10:47 Vitamins (Sjr) - PO 1 tab DAILY WALTER Administration Pseudoephedrine/Triprolidine 1 combo 04/06/17 12:58 04/07/17 17:13 Actifed - PO 1 combo TID PRN Administration NASAL CONGESTION Quetiapine Fumarate 200 mg 04/07/17 11:15 04/08/17 10:48 Seroquel - PO 200 mg BID WALTER Administration Thiamine HCl 100 mg 04/06/17 22:00 04/07/17 22:26 Vitamin B1 - PO 100 mg HS WALTER Administration Medication(s) Change(s): No clinical justification for medication changes.Patient remains on seroquel 200 mg po bid.Mr Rivera is agreable with this careplan. Current Side Effect: No Lab tests ordered: No Lab tests reviewed: Yes Provider note:: Case discussed with the referral source,Dr Smith.Nursing notes are appreciated.Met with the patient at bedside.Seen resting in bed, neatly groomed,eating his lunch.Not distressed.Displaying adequate behavioral control.Conversant,goal-directed and appropriate as evidenced by offering apologies for " this childish escalation." Mr Rivera states that he got angry due to the uncertainty still surrounding his disposition (wants to go to inpatient rehabilitation after this detox care)." I said that I will kill myself if my counselor does not send me to rehab.That was wrong and stupid.There are other options of treatment if bed is not available.I am sorry for what I have said." Patient comments that he is already connected with a psychiatrist at the [facility] clinic and that he may have to wait for a rehab bed to become available.No evidence of psychosis or michael.This patient is prone to sporadic angry outbursts and it is reasonable to suspect an underlying character disorder (borderline/antisocial) co-morbid with mood dysregulation.Mr Rivera is at his baseline.Willing to pursue detox treatment on .NO indication for Constant Observation.Firm limit setting,support, reassurance and close observation will be implemented to ensure a safe hospital course. Total face to face time:: 30 Mental Status Exam - Mental Status Exam Alert and Oriented to: Time, Place, Person Cognitive Function: Good Patient Appearance: Well Groomed Mood: Hopeful (wants to transition to rehabilitation care) Affect: Appropriate, Normal Range Patient Behavior: Appropriate, Cooperative (friendly with this interviewer, apologetic) Speech Pattern: Clear, Appropriate Voice Loudness: Normal Thought Process: Goal Oriented Thought Disorder: Not Present Hallucinations: Denies Suicidal Ideation: Denies (no immediate risk to self ; patient is calm and logical ; future-oriented and invested in maintaining physical health ; he understands the seriousness of his statements and he insists that there are ego- dystonic / made out of anger and frustration ) Homicidal Ideation: Denies Insight/Judgement: Poor (patient,himself,aknowledges that it was " stupid to make fake suicidal threats just to seek attention") Sleep: Well (as per own report) Appetite: Good (observed calmly eating his lunch during my examination) Muscle strength/Tone: Normal Gait/Station: Normal Psychiatric Treatment Plan - Problem List (1) Impulse control disorder, unspecified Current Visit: Yes (2) Schizoaffective disorder Current Visit: Yes Qualifiers: Schizoaffective disorder type: bipolar Qualified Code(s): F25.0 - Schizoaffective disorder, bipolar type; F25.0 - Schizoaffective disorder, bipolar type; F25.0 - Schizoaffective disorder, bipolar type; F25.0 - Schizoaffective disorder, bipolar type (3) Sedative, hypnotic or anxiolytic dependence with withdrawal, uncomplicated Current Visit: Yes (4) Opioid dependence on agonist therapy Current Visit: Yes (5) Cocaine dependence Current Visit: Yes (6) Nicotine dependence Current Visit: Yes (7) GERD (gastroesophageal reflux disease) Current Visit: Yes Qualifiers: Esophagitis presence: without esophagitis Qualified Code(s): K21.9 - Gastro-esophageal reflux disease without esophagitis; K21.9 - Gastro- esophageal reflux disease without esophagitis; K21.9 - Gastro-esophageal reflux disease without esophagitis (8) HTN (hypertension) Current Visit: Yes Qualifiers: Hypertension type: essential hypertension Qualified Code(s): I10 - Essential (primary) hypertension; I10 - Essential (primary) hypertension; I10 - Essential (primary) hypertension (9) Hepatitis C Current Visit: Yes Qualifiers: Viral hepatitis chronicity: chronic Hepatic coma status: without hepatic coma Qualified Code(s): B18.2 - Chronic viral hepatitis C; B18.2 - Chronic viral hepatitis C; B18.2 - Chronic viral hepatitis C; B18.2 - Chronic viral hepatitis C (10) Anemia Current Visit: No (11) Asthma Current Visit: Yes (12) Insomnia Current Visit: Yes (13) Personality disorder Current Visit: Yes Comment: Strongly suspected.
--- NOTE | 2017-04-08 12:21 | PN ---
[facility] Progress Note Note: addendum out of anguish stated he is going to hurt himself,but changed his statement later, seen by dr Rodríguez,no suicidal ideation close monitoring
[2017-04-08] MEDS: THIAMINE HCL 100 MG TABLET (FP) PO SCH (22:53)
[2017-04-09] MEDS: diazePAM 5 MG TABLET PO PRN (04:06)
[2017-04-09] MEDS ORDERED: METHADONE HCL 40 MG DISPERSABLE TABLET ONE (04:32)
[2017-04-09] MEDS ORDERED: METHADONE HCL 10 MG TABLET ONE (04:33)
[2017-04-09] MEDS: METHADONE 80 MG, METHADONE 20 MG PO SCH (06:05)
[2017-04-09] MEDS: DOCUSATE SODIUM 100 MG CAPSULE (FP) PO SCH ×3 (06:05→23:08)
[2017-04-09] MEDS: QUEtiapine FUMARATE 200 MG TABLET PO SCH ×2 (11:00→22:55)
[2017-04-09] MEDS: PRENATAL VITAMINS W/ FOLIC ACID TABLET (FP) PO SCH (11:01)
[2017-04-09] MEDS: cloNIDine HCL 0.1 MG TABLET PO SCH ×2 (11:01→22:55)
[2017-04-09] MEDS: NICOTINE 21 MG/24 HOURS TOPICAL PATCH TD SCH (11:01)
[2017-04-09] MEDS: diazePAM 5 MG TABLET PO SCH ×2 (11:01→22:55)
[2017-04-09] MEDS: PANTOPRAZOLE 40 MG TABLET (FP) PO SCH (11:02)
[2017-04-09 11:36] LABS: MCH 27.3 pg (25.7-33.7); MCHC 31.5 g/dl (32.0-35.9); MEAN CELL VOLUME 86.9 fl (80-96); MEAN PLT VOLUME 8.8 fl (7.5-11.1); PLATELET COUNT 185 K/MM3 (134-434); RDW 18.5 % (11.9-15.9); WHITE BLOOD COUNT 2.3 K/mm3 (4.0-10.0)
[2017-04-09 11:42] LABS: INR 0.93 (0.82-1.09); PROTHROMBIN TIME (PATIENT) 10.5 SEC (9.98-11.88)
[2017-04-09 11:52] LABS: ALBUMIN 3.3 g/dl (3.4-5.0); ANION GAP 9 (8-16); CALCIUM 8.8 mg/dL (8.5-10.1); CO2 29 mmol/L (21-32); CREATININE 0.7 mg/dL (0.7-1.3); GLUCOSE,RANDOM 111 mg/dL (74-106); SGOT/AST 13 U/L (15-37); SGPT/ALT 16 U/L (12-78)
[2017-04-09 11:54] LABS: ALK PHOS 92 U/L (45-117); BILIRUBIN,TOTAL 0.3 mg/dL (0.2-1.0); TOT PROT 6.8 g/dl (6.4-8.2)
--- NOTE | 2017-04-09 13:50 | PN ---
BHS Progress Note (SOAP) Subjective: ALERT,IRRITABLE,ANXIOUS,INTERRUPTED SLEEP, Objective: 04/09/17 13:48 Vital Signs Temperature 98.4 F 04/09/17 11:02 Pulse Rate 72 04/09/17 11:02 Respiratory Rate 18 04/09/17 11:02 Blood Pressure 114/61 04/09/17 11:02 O2 Sat by Pulse Oximetry (%) Laboratory Last Values WBC 2.3 K/mm3 (4.0-10.0) L 04/09/17 07:45 RBC 3.62 M/mm3 (4.00-5.60) L 04/09/17 07:45 Hgb 9.9 GM/dL (11.7-16.9) L 04/09/17 07:45 Hct 31.4 % (35.4-49) L 04/09/17 07:45 MCV 86.9 fl (80-96) 04/09/17 07:45 MCH 27.3 pg (25.7-33.7) 04/09/17 07:45 MCHC 31.5 g/dl (32.0-35.9) L 04/09/17 07:45 RDW 18.5 % (11.9-15.9) H 04/09/17 07:45 Plt Count 185 K/MM3 (134-434) D 04/09/17 07:45 MPV 8.8 fl (7.5-11.1) 04/09/17 07:45 Total Counted 100 04/06/17 13:00 Neutrophils % (Manual) 30 % (42.8-82.8) L 04/06/17 13:00 Lymphocytes % (Manual) 64 % (8-40) H 04/06/17 13:00 Monocytes % (Manual) 4 % (3.8-10.2) 04/06/17 13:00 Eosinophils % (Manual) 2 % (0-4.5) 04/06/17 13:00 Other Cell Type 04/06/17 13:00 Platelet Estimate Slt decreased (NORMAL) 04/06/17 13:00 Platelet Comment No clumping noted 04/06/17 13:00 Platelet Comment No clotting detected 04/06/17 13:00 PT with INR 10.50 SEC (9.98-11.88) 04/09/17 07:45 INR 0.93 (0.82-1.09) 04/09/17 07:45 Sodium 139 mmol/L (136-145) 04/09/17 07:45 Potassium 4.5 mmol/L (3.5-5.1) 04/09/17 07:45 Chloride 101 mmol/L (98-107) 04/09/17 07:45 Carbon Dioxide 29 mmol/L (21-32) 04/09/17 07:45 Anion Gap 9 (8-16) 04/09/17 07:45 BUN 15 mg/dL (7-18) 04/09/17 07:45 Creatinine 0.7 mg/dL (0.7-1.3) 04/09/17 07:45 Creat Clearance w eGFR > 60 (>60) 04/09/17 07:45 Random Glucose 111 mg/dL (74-106) H 04/09/17 07:45 Calcium 8.8 mg/dL (8.5-10.1) 04/09/17 07:45 Total Bilirubin 0.3 mg/dL (0.2-1.0) D 04/09/17 07:45 AST 13 U/L (15-37) L 04/09/17 07:45 ALT 16 U/L (12-78) 04/09/17 07:45 Alkaline Phosphatase 92 U/L (45-117) 04/09/17 07:45 Total Protein 6.8 g/dl (6.4-8.2) 04/09/17 07:45 Albumin 3.3 g/dl (3.4-5.0) L 04/09/17 07:45 Urine Color Yellow 04/06/17 19:43 Urine Appearance Clear 04/06/17 19:43 Urine pH 6.0 (5.0-8.0) 04/06/17 19:43 Ur Specific [place] 1.020 (1.005-1.025) 04/06/17 19:43 Urine Protein Negative (NEGATIVE) 04/06/17 19:43 Urine Glucose (UA) Negative (NEGATIVE) 04/06/17 19:43 Urine Ketones Negative (NEGATIVE) 04/06/17 19:43 Urine Blood Negative (NEGATIVE) 04/06/17 19:43 Urine Nitrite Negative (NEGATIVE) 04/06/17 19:43 Urine Bilirubin Negative (NEGATIVE) 04/06/17 19:43 Urine Urobilinogen Negative mg/dL (0.2-1.0) 04/06/17 19:43 Ur Leukocyte Esterase Negative (NEGATIVE) 04/06/17 19:43 RPR Titer Nonreactive (NONREACTIVE) 04/06/17 13:00 Assessment: 04/09/17 13:49 WITHDRAWAL SYMPTOM Plan: CONTINUE DETOX
[2017-04-09] MEDS: THIAMINE HCL 100 MG TABLET (FP) PO SCH (22:55)
[2017-04-09] MEDS: MAGNESIUM HYDROX 2400MG/30ML ORAL SUSPENSION 30 ML CUP PO PRN (23:08)
[2017-04-10] MEDS ORDERED: METHADONE HCL 40 MG DISPERSABLE TABLET ONE (04:36)
[2017-04-10] MEDS ORDERED: METHADONE HCL 10 MG TABLET ONE (04:36)
[2017-04-10] MEDS: METHADONE 80 MG, METHADONE 20 MG PO SCH (05:45)
[2017-04-10] MEDS: DOCUSATE SODIUM 100 MG CAPSULE (FP) PO SCH (05:45)
[2017-04-10] MEDS ORDERED: diazePAM 5 MG TABLET PO SCH (10:00)
--- NOTE | 2017-04-10 10:49 | DS ---
[facility] Detox Discharge Summary Admission Date: 04/06/17 Discharge Date: 04/10/17 - History Present History: Sedative Dependence Additional Comments: follow up with surendra as appointment Pertinent Past History: gerd history of esophageal varices hypertension hepatitis c mmtp pancytopenia asthma nicotine dependence - Physical Exam Results Vital Signs: Vital Signs Temperature 98.8 F 04/10/17 06:02 Pulse Rate 76 04/10/17 06:02 Respiratory Rate 18 04/10/17 06:02 Blood Pressure 141/77 04/10/17 06:02 O2 Sat by Pulse Oximetry (%) Pertinent Admission Physical Exam Findings: withdrawal symptom - Treatment Hospital Course: Detox Protocol Followed, Detoxed Safely, Responded well, Discharged Condition Good, Rehab Referral Accepted Patient has Accepted a Rehab Referral to: surend[facility] - Medication Discharge Medications: Ambulatory Orders Omeprazole [Prilosec] 40 mg PO DAILY 11/08/11 Quetiapine Fumarate [Seroquel -] 200 mg PO BID 10/01/14 Clonidine HCl [Clonidine HCl ER] 0.2 mg PO BID 03/07/17 Albuterol Sulfate Inhaler - [Ventolin Hfa Inhaler -] 2 inh PO Q4H PRN 04/06/17 - AMA Did Patient Leave Against Medical Advice: No
[2017-04-10] MEDS: cloNIDine HCL 0.1 MG TABLET PO SCH (10:55)
[2017-04-10] MEDS: QUEtiapine FUMARATE 200 MG TABLET PO SCH (10:55)
[2017-04-10] MEDS: PANTOPRAZOLE 40 MG TABLET (FP) PO SCH (10:55)
[2017-04-10] MEDS: PRENATAL VITAMINS W/ FOLIC ACID TABLET (FP) PO SCH (10:55)
[2017-04-10] MEDS: NICOTINE 21 MG/24 HOURS TOPICAL PATCH TD SCH (10:56)
[2017-04-10 11:14] VITALS: BP 115/73; PULSE 81; TEMP 98.1
== END 2017-04-10 11:36 | disposition other institution (70) | DRG 305 ==
LOC: YASAS 08:05 → Y6N 13:07
PROVIDERS: ADMIT Internal Medicine; ATTEND Internal Medicine
PROC: HZ2ZZZZ Detoxification Services for Substance Abuse Treatment (ICD-10-PCS; principal; 2017-04-06)
DX: I10 Essential (primary) hypertension (principal); F11.20 Opioid dependence, uncomplicated; F13.230 Sedative, hypnotic or anxiolytic dependence with withdrawal, uncomplicated; F14.20 Cocaine dependence, uncomplicated; D61.818 Other pancytopenia; F25.0 Schizoaffective disorder, bipolar type; B18.2 Chronic viral hepatitis C; J45.909 Unspecified asthma, uncomplicated; G47.00 Insomnia, unspecified; Z86.69 Personal history of other diseases of the nervous system and sense organs
CPT/HCPCS: 36415; 71020-TC; 80053; 81003; 85027; 85610; 86593; 93005; 93010

== ENCOUNTER 2017-09-06 21:40 | Emergency (ER) | payer MEDICARE, OTHER ==
[2017-09-06 21:58] VITALS: BP 141/69; PULSE 84; TEMP 97.8; BMI 33.5
--- NOTE | 2017-09-06 23:01 | PDOC ---
History of Present Illness - General Chief Complaint: Pain Stated Complaint: ABD PAIN Time Seen by Provider: 09/06/17 22:07 - History of Present Illness Initial Comments: 09/06/17 22:52 "The patient is a 62 year old male brought via EMS, with a significant past medical history of schizoaffective disorder, esophageal varices, COPD, GERD, seizures, Hep C, scabbies, suicidal attempt (Tried to overdose in 2009) and HTN , who presents to the emergency department with abdominal pain, fever, generalized weakness, loss of appetite and small open wounds on both upper extremities and back. He reports ""black parasites"" crawling under his skin and causing the numerous open wounds on his arms and back. Pt was seen for similar complaints last year. During that evaluation, pt was found to be pancytopenic and was admitted to hospital. However, pt eloped from ER at that time. When questioned about this, he states that he was ""scared"" of what the tests might find, so he decided to walk out. He states he would be amenable to admission this time if it was necessary. The patient denies chest pain, shortness of breath, headache and dizziness. Denies nausea, vomit, diarrhea and constipation. Denies dysuria, frequency, urgency and hematuria. Allergies: Penicillin Past surgical history: Abdominal Surgery Social history: Methadone use (states that he quit IV drug use in 2002), alcohol use. (Multiple admission to detox) PMD: Dr. Arturo Madrid " Past History - Past Medical History Allergies/Adverse Reactions: Allergies Allergy/AdvReac Type Severity Reaction Status Date / Time Penicillins Allergy Severe Hives Verified 09/07/17 03:23 Home Medications: Ambulatory Orders Omeprazole [Prilosec] 40 mg PO DAILY 11/08/11 Quetiapine Fumarate [Seroquel -] 200 mg PO BID 10/01/14 Clonidine HCl [Clonidine HCl ER] 0.2 mg PO BID 03/07/17 Albuterol Sulfate Inhaler - [Ventolin Hfa Inhaler -] 2 inh PO Q4H PRN 04/06/17 Quetiapine Fumarate [Seroquel -] 200 mg PO BID #60 tablet 05/01/17 Anemia: Yes (D/T ESOPHAGEAL VARICES/hemolytic anemia) Asthma: Yes Cancer: No Cardiac Disorders: No CVA: No COPD: No CHF: No Dementia: No Diabetes: No GI Disorders: Yes (gerd) Disorders: No HTN: Yes Hypercholesterolemia: No Kidney Stones: No Psychiatric Problems: Yes (SCHIZO-AFFECTIVE.) Seizures: Yes (seiure r/t xanax last attack of 2014) - Surgical History Abdominal Surgery: No Appendectomy: No Cardiac Surgery: No Cholecystectomy: No Lung Surgery: No Neurologic Surgery: No Orthopedic Surgery: No - Reproductive History Testicular Surgery: No - Suicide/Smoking/Psychosocial Hx Smoking History: Current every day smoker Have you smoked in the past 12 months: No Number of Cigarettes Smoked Daily: 22 If you are a former smoker, when did you quit?: 2013 Cigars Per Day: 0 Information on smoking cessation initiated: No 'Breaking Loose' booklet given: 04/06/17 Hx Alcohol Use: No Drug/Substance Use Hx: No Substance Use Type: Cocaine (Started using cocaine at age 18, consumes $10 worth 1-3 times in the last 30 days. Last used on 04/05/17), Heroin (Reports that he started using valium as prescribed but started abusing xanax at age 5. He consumes 10-12 mg daily. Last used on 04/06/17), Tranquilizers (Started using xanax at age 33, consumes 4-6 mg daily. Last used on 04/06/17) Hx Substance Use Treatment: Yes (4 previous inpt detox @ [facility]) Review of Systems - Review of Systems Comments:: 09/06/17 22:56 "GENERAL/CONSTITUTIONAL: (+) Fever, generalized weakness, loss of appetite. No chills. HEAD, EYES, EARS, NOSE AND THROAT: No change in vision. No ear pain or discharge. No sore throat. CARDIOVASCULAR: No chest pain or shortness of breath. RESPIRATORY: No cough, wheezing, or hemoptysis. GASTROINTESTINAL: (+) Abdominal pain. No nausea, vomiting, diarrhea or constipation. GENITOURINARY: No dysuria, frequency, or change in urination. MUSCULOSKELETAL: No joint or muscle swelling or pain. No neck or back pain. SKIN: (+) Numeorus open and healed wounds in his upper extremities and back. NEUROLOGIC: No headache, vertigo, loss of consciousness, or change in strength/ sensation. ENDOCRINE: No increased thirst. No abnormal weight change. HEMATOLOGIC/LYMPHATIC: No anemia, easy bleeding, or history of blood clots. ALLERGIC/IMMUNOLOGIC: No hives or skin allergy." *Physical Exam - Vital Signs Last Vital Signs Temp Pulse Resp BP Pulse Ox 97.8 F 84 16 141/69 96 09/06/17 21:55 09/06/17 21:55 09/06/17 21:55 09/06/17 21:55 09/06/17 21:55 - Physical Exam Comments: 09/06/17 22:56 "GENERAL: Awake, alert, and fully oriented, in no acute distress HEAD: No signs of trauma EYES: PERRLA, EOMI, sclera anicteric, conjunctiva clear ENT: Auricles normal inspection, hearing grossly normal, nares patent, oropharynx clear without exudates. Moist mucosa NECK: Nontender, no stepoffs, Normal ROM, supple, no lymphadenopathy, JVD, or masses LUNGS: Breath sounds equal, clear to auscultation bilaterally. No wheezes, and no crackles HEART: Regular rate and rhythm, normal S1 and S2, no murmurs, rubs or gallops ABDOMEN: Soft, diffuse tenderness to palpation, negative fluid wave, normoactive bowel sounds. No guarding, no rebound. No masses EXTREMITIES: Normal range of motion, no edema. No clubbing or cyanosis. No cords, erythema, or tenderness NEUROLOGICAL: Cranial nerves II through XII intact. 5/5 strength and sensation in all extremities, Normal speech, normal gait, normal cerebellar function SKIN: Numerous open lesions on arms and back, no active hemorrhage or signs of infection. ED Treatment Course - LABORATORY CBC & Chemistry Diagram: 09/07/17 01:06 09/07/17 01:06 - RADIOLOGY Radiology Studies Ordered: Category Date Time Status ABDOMEN & PELVIS CT WITH CONTR [CT] Stat CT Scan 09/06/17 22:40 Ordered CHEST X-RAY PORTABLE* [RAD] Stat Radiology 09/06/17 22:40 Ordered Medical Decision Making - Medical Decision Making 09/06/17 22:57 62 M with fevers, abdominal pain and complaint of "black parasites". Exam notable for diffuse tenderness to palpation of abdomen, as well as numerous open sores on arms and back. Will obtain CT to r/o acute abdominal pathology. Pt 's complaint of "parasites" could be 2/2 scabies, though pt with no evidence of scabies on exam. Also consider Morgellon's syndrome (delusional parasitosis). - Labs, BCx - CT abd pelvis 09/07/17 02:32 Labs notable once more for pancytopenia. Pt signed out to Dr. Brown at 2AM, pending CTAP, labs, and admission to hospital for further evaluation of pancytopenia. Case discussed in detail with oncoming Emergency Physician including history, physical exam and ancillary studies. Oncoming Emergency Physician has assumed care for the patient and will complete the evaluation and treatment. Patient is aware of the plan. *DC/Admit/Observation/Transfer Diagnosis at time of Disposition: Pancytopenia, Abdominal pain - Discharge Dispostion Disposition: HOME Condition at time of disposition: Improved - Referrals Referrals: Shawn Valdes MD [Staff Physician] - Manuel Kaufman MD [Staff Physician] - - Patient Instructions - Post Discharge Activity
[2017-09-07 01:45] LABS: HEMATOCRIT 27.5 % (35.4-49); HEMOGLOBIN 9.2 GM/dL (11.7-16.9); MCH 29.7 pg (25.7-33.7); MCHC 33.4 g/dl (32.0-35.9); MEAN CELL VOLUME 88.9 fl (80-96); MEAN PLT VOLUME 8.4 fl (7.5-11.1); PLATELET COUNT 96 K/MM3 (134-434); RDW 19.5 % (11.9-15.9); WHITE BLOOD COUNT 2.9 K/mm3 (4.0-10.0)
[2017-09-07 01:49] LABS: ADD RBC MORPHOLOGY YES
[2017-09-07 02:33] LABS: PROTHROMBIN TIME (PATIENT) 11.3 SEC (9.98-11.88)
[2017-09-07 02:59] LABS: ALBUMIN 2.9 g/dl (3.4-5.0); ANION GAP 12 (8-16); BILIRUBIN,TOTAL 0.2 mg/dL (0.2-1.0); BLOOD UREA NITROGEN 13 mg/dL (7-18); CALCIUM 8.1 mg/dL (8.5-10.1); CHLORIDE 103 mmol/L (98-107); CO2 26 mmol/L (21-32); CREATININE 0.7 mg/dL (0.7-1.3); GLUCOSE,RANDOM 100 mg/dL (74-106); LIPASE 72 U/L (73-393); POTASSIUM 4.2 mmol/L (3.5-5.1); SGOT/AST 20 U/L (15-37); SGPT/ALT 14 U/L (12-78); SODIUM 141 mmol/L (136-145); TOT PROT 6.3 g/dl (6.4-8.2)
[2017-09-07 03:00] LABS: ALK PHOS 78 U/L (45-117)
--- NOTE | 2017-09-07 03:36 | PDOC ---
*Physical Exam - Vital Signs Last Vital Signs Temp Pulse Resp BP Pulse Ox 97.8 F 84 16 141/69 96 09/06/17 21:55 09/06/17 21:55 09/06/17 21:55 09/06/17 21:55 09/06/17 21:55 ED Treatment Course - LABORATORY CBC & Chemistry Diagram: 09/07/17 01:06 09/07/17 01:06 - ADDITIONAL ORDERS Additional order review: Laboratory Results 09/07/17 09/07/17 09/07/17 01:06 01:06 01:06 PT with INR 11.30 INR 1.00 PTT (Actin FS) Sodium Potassium Chloride Carbon Dioxide Anion Gap BUN Creatinine Creat Clearance w eGFR Random Glucose Lactic Acid 1.5 Calcium Total Bilirubin AST ALT Alkaline Phosphatase Creatine Kinase Troponin I B-Natriuretic Peptide Total Protein Albumin Lipase TSH 0.70 09/07/17 09/07/17 09/07/17 01:06 01:06 01:06 PT with INR INR PTT (Actin FS) 30.4 Sodium 141 Potassium 4.2 Chloride 103 Carbon Dioxide 26 Anion Gap 12 BUN 13 Creatinine 0.7 Creat Clearance w eGFR > 60 Random Glucose 100 Lactic Acid Calcium 8.1 L Total Bilirubin 0.2 D AST 20 D ALT 14 Alkaline Phosphatase 78 Creatine Kinase 115 Troponin I < 0.02 B-Natriuretic Peptide 140.10 H Total Protein 6.3 L Albumin 2.9 L Lipase 72 L TSH 09/07/17 01:06 RBC 3.10 L MCV 88.9 MCHC 33.4 RDW 19.5 H MPV 8.4 D Neutrophils % No Result Required. Lymphocytes % No Result Required. *DC/Admit/Observation/Transfer Diagnosis at time of Disposition: Pancytopenia, Abdominal pain - Discharge Dispostion Disposition: HOME Condition at time of disposition: Stable Admit: No - Referrals Referrals: Shawn Valdes MD [Staff Physician] - Manuel Kaufman MD [Staff Physician] - - Patient Instructions - Post Discharge Activity
[2017-09-07 03:56] LABS: ANISOCYTOSIS 1+; PLATELET ESTIMATE DECREASED
== END 2017-09-07 06:45 | disposition home or self-care (01) ==
LOC: JER 21:40
DX: D61.818 Other pancytopenia (principal); R10.9 Unspecified abdominal pain; F25.9 Schizoaffective disorder, unspecified; J44.9 Chronic obstructive pulmonary disease, unspecified; K21.9 Gastro-esophageal reflux disease without esophagitis; B19.20 Unspecified viral hepatitis C without hepatic coma; I10 Essential (primary) hypertension
CPT/HCPCS: 36415; 71045-TC-FY; 74176-TC; 80053; 82550; 83605; 83690; 83880; 84443; 84484; 85025; 85610; 85730; 87040; 99282-25

== ENCOUNTER 2017-10-11 13:00 | Emergency (ER) | payer MEDICARE ==
[2017-10-11 13:16] VITALS: BMI 29.9
--- NOTE | 2017-10-11 14:22 | PDOC ---
History of Present Illness - General Chief Complaint: Shortness of Breath Stated Complaint: SOB, RESPIRATORY Time Seen by Provider: 10/11/17 13:47 - History of Present Illness Initial Comments: 10/11/17 14:13 62 year old male brought via EMS, with a significant past medical history of schizoaffective disorder, esophageal varices, COPD, GERD, seizures, Hep C, scabbies, suicidal attempt (Tried to overdose in 2009) and HTN, and addiction disorder currently on Methadone who presents to the emergency department with burning pain in his lungs for the past 2 weeks. Past History - Past Medical History Allergies/Adverse Reactions: Allergies Allergy/AdvReac Type Severity Reaction Status Date / Time Penicillins Allergy Severe Hives Verified 10/11/17 13:16 Home Medications: Ambulatory Orders Omeprazole [Prilosec] 40 mg PO DAILY 11/08/11 Clonidine HCl [Clonidine HCl ER] 0.2 mg PO BID 03/07/17 Quetiapine Fumarate [Seroquel -] 200 mg PO BID #60 tablet 05/01/17 Anemia: Yes (D/T ESOPHAGEAL VARICES/hemolytic anemia) Asthma: Yes Cancer: No Cardiac Disorders: No CVA: No COPD: No CHF: No Dementia: No Diabetes: No GI Disorders: Yes (gerd) Disorders: No HTN: Yes Hypercholesterolemia: No Kidney Stones: No Liver Disease: Yes (Cirrhosis) Psychiatric Problems: Yes (SCHIZO-AFFECTIVE.) Seizures: Yes (seiure r/t xanax last attack of 2014) - Surgical History Abdominal Surgery: No Appendectomy: No Cardiac Surgery: No Cholecystectomy: No Lung Surgery: No Neurologic Surgery: No Orthopedic Surgery: No - Reproductive History Testicular Surgery: No - Immunization History Td Vaccination: Yes Immunization Up to Date: Yes - Suicide/Smoking/Psychosocial Hx Smoking History: Current every day smoker Have you smoked in the past 12 months: No Number of Cigarettes Smoked Daily: 22 If you are a former smoker, when did you quit?: 2013 Cigars Per Day: 0 Information on smoking cessation initiated: Yes 'Breaking Loose' booklet given: 04/06/17 Hx Alcohol Use: Yes Drug/Substance Use Hx: Yes Substance Use Type: Cocaine, Heroin, Tranquilizers Hx Substance Use Treatment: Yes (4 previous inpt detox @ [facility]) Respiratory Specific PMHX - Complaint Specific PMHX Pneumonia: Yes (X8 IN THE PAST) TB (Tuberculosis): No Review of Systems - Review of Systems Able to Perform ROS?: Yes Is the patient limited Khmer proficient: No Constitutional: No: Symptoms Reported HEENTM: No: Symptoms Reported Respiratory: Yes: Shortness of Breath, Other (burning pain upon breathing) Cardiac (ROS): No: Symptoms Reported ABD/GI: No: Symptoms Reported : No: Symptoms Reported Musculoskeletal: No: Symptoms Reported Integumentary: No: Symptoms Reported Neurological: No: Symptoms reported All Other Systems: Reviewed and Negative *Physical Exam - Vital Signs Last Vital Signs Temp Pulse Resp BP Pulse Ox 97.8 F 60 16 152/94 99 10/11/17 13:12 10/11/17 13:12 10/11/17 13:12 10/11/17 13:12 10/11/17 14:01 - Physical Exam General Appearance: Yes: Nourished, Appropriately Dressed. No: Apparent Distress HEENT: positive: EOMI, ARIEL. negative: Normal ENT Inspection Neck: negative: Tender Respiratory/Chest: positive: Lungs Clear, Normal Breath Sounds, Respiratory Distress, Crackles (in upper lobes), Rales. negative: Chest Tender Cardiovascular: positive: Regular Rhythm, S1, S2, Bradycardia Gastrointestinal/Abdominal: positive: Normal Bowel Sounds, Flat, Soft. negative : Tender Musculoskeletal: positive: Normal Inspection. negative: CVA Tenderness ED Treatment Course - LABORATORY CBC & Chemistry Diagram: 10/11/17 15:10 10/11/17 15:10 Medical Decision Making - Medical Decision Making 10/11/17 14:55 Infection vs CAD vs PE vs GERD Will send for cxr, basic labs, EKG 10/11/17 16:18 EKG: sinus bradycardia. Patient admitted to have had a [facility] which reveal many nodules. Will need pulmonology follow up for biopsy. CXR read pending. 10/11/17 17:10 PAtient left before results could be discussed with him. *DC/Admit/Observation/Transfer Diagnosis at time of Disposition: Pancytopenia, Atypical angina - Discharge Dispostion Disposition: HOME Admit: No - Referrals Referrals: Arturo Madrid [Primary Care Provider] - Rajendra Humphries MD [Staff Physician] - - Patient Instructions Printed Discharge Instructions: DI for Atypical Chest Pain Additional Instructions: Follow up with Dr. Humphries for your lung biopsy. Come back to the Emergency Department for any new, worsening or concerning symptom. - Post Discharge Activity
--- NOTE | 2017-10-11 14:23 | PDOC ---
Attending Attestation - HPI HPI: 10/11/17 14:49 62 year old male with a significant past medical history of schizoaffective disorder, esophageal varices, COPD, GERD, seizures, Hep C, scabbies, suicidal attempt (Tried to overdose in 2009) and HTN, and addiction disorder currently on Methadone, brought in by ems with chest burning today. He denies headache, dizziness, SOB. He denies urinary complaints. Allergies: Penicillins - Medical Decision Making 10/11/17 15:02 Documentation prepared by Regina Pierre, acting as medical legal investigator for Armando Atkinson MD <Regina Pierre - Last Filed: 10/11/17 15:01> - Resident Resident Name: Vik Rodriguez - ED Attending Attestation I have performed the following: I have examined & evaluated the patient, The case was reviewed & discussed with the resident, I agree w/resident's findings & plan, Exceptions are as noted - Physicial Exam PE: 10/11/17 16:36 Patient is awake and alert, afebrile, nontoxic appearing nc, atraumatic PERRLA, EOMI CTA RRR sft, nt, nd no LEs edema aox3, moving all extr symmetrically - Medical Decision Making 10/11/17 16:39 62-year-old male with history of polysubstance abuse, cirrhosis and pancytopenia related to hepatitis C presents to the ER with lung burning for the past month. In the ER, patient is awake and alert, well-appearing, afebrile , with oxygen saturation of 98% room air. Patient was evaluated at [facility] for similar symptoms. He was evaluated with CT of chest which revealed multiple nodularities that require outpatient follow-up for a PET scan and possible CT-guided biopsy. Patient signed out AMA presented to the ER at [facility]. EKG reveals no evidence of acute ischemia. Chest x-ray reveals interstitial thickening on the right. First set of cardiac enzymes is within normal limit. I do not suspect ACS or PE at this time. Will obtain repeat cardiac enzymes and if negative, will discharge with prompt outpatient pulmonology follow-up. <Armando Atkinson - Last Filed: 10/11/17 16:44>
[2017-10-11] MEDS ORDERED: RANITIDINE HCL 150 MG/10 ML UNIT-DOSE PO ONE (14:49)
[2017-10-11] MEDS ORDERED: RANITIDINE HCL 150 MG TABLET (FP) ONE (15:08)
[2017-10-11 15:16] LABS: BASO % 0.4 % (0-2.0); EOS % 1.8 % (0-4.5); HEMATOCRIT 31.2 % (35.4-49); HEMOGLOBIN 10.3 GM/dL (11.7-16.9); MCH 28.5 pg (25.7-33.7); MCHC 32.9 g/dl (32.0-35.9); MEAN CELL VOLUME 86.7 fl (80-96); MEAN PLT VOLUME 7.2 fl (7.5-11.1); MONO % 8.7 % (3.8-10.2); NEUT % 27.1 % (42.8-82.8); PLATELET COUNT 158 K/MM3 (134-434); RBC 3.59 M/mm3 (4.00-5.60); RDW 17.6 % (11.9-15.9); WHITE BLOOD COUNT 2.1 K/mm3 (4.0-10.0)
[2017-10-11 15:45] LABS: ALBUMIN 3.3 g/dl (3.4-5.0); ALK PHOS 93 U/L (45-117); ANION GAP 9 (8-16); BILIRUBIN,TOTAL 0.3 mg/dL (0.2-1.0); BLOOD UREA NITROGEN 19 mg/dL (7-18); CALCIUM 8.9 mg/dL (8.5-10.1); CHLORIDE 100 mmol/L (98-107); CO2 30 mmol/L (21-32); CREATININE 0.7 mg/dL (0.7-1.3); GLUCOSE,RANDOM 102 mg/dL (74-106); POTASSIUM 4.6 mmol/L (3.5-5.1); SGOT/AST 19 U/L (15-37); SGPT/ALT 15 U/L (12-78); SODIUM 139 mmol/L (136-145); TOT PROT 7.5 g/dl (6.4-8.2)
[2017-10-11 17:38] VITALS: BP 146/89; PULSE 57; TEMP 98.9
--- NOTE | 2017-10-12 11:24 | EKG ---
Test Reason : Blood Pressure : / mmHG Vent. Rate : 048 BPM Atrial Rate : 048 BPM P-R Int : 156 ms QRS Dur : 088 ms QT Int : 470 ms P-R-T Axes : 080 069 070 degrees QTc Int : 419 ms SINUS BRADYCARDIA OTHERWISE NORMAL ECG WHEN COMPARED WITH ECG OF 06-APR-2017 14:03, QT HAS SHORTENED Confirmed by PB WILLSON MD ([id number]) on 10/12/2017 11:24:16 AM Referred By: Confirmed By:PB WILLSON MD
== END 2017-10-11 17:42 | disposition home or self-care (01) ==
LOC: JER 13:00
DX: R07.89 Other chest pain (principal); D61.818 Other pancytopenia; F25.9 Schizoaffective disorder, unspecified; J44.9 Chronic obstructive pulmonary disease, unspecified; F17.210 Nicotine dependence, cigarettes, uncomplicated; I10 Essential (primary) hypertension; K21.9 Gastro-esophageal reflux disease without esophagitis; K00.2 Abnormalities of size and form of teeth
CPT/HCPCS: 36415; 71046-TC-FY; 80053; 84484; 85025; 93005; 93010; 99283-25

== ENCOUNTER 2017-12-09 23:28 | Inpatient (IN) | payer MEDICARE, OTHER ==
--- NOTE | 2017-12-09 23:32 | PDOC ---
History of Present Illness - General Chief Complaint: Back Pain Stated Complaint: BACK PAIN Time Seen by Provider: 12/09/17 23:31 - History of Present Illness Initial Comments: This 62-year-old man with a history of COPD/HTN/schizoaffective disorder/GERD/ seizures/hep C/history of substance abuse is brought in by EMS. Nature of the call to EMS is unclear but patient is staying with his girlfriend and apparently complained of chest pain. Reportedly, he was also asking for methadone at home (although he has not while here in the ER). He is not accompanied by family or friends. On presentation, the patient is oriented to person only, with slurred speech. He denies alcohol or other drug use. He admits to chest pain/shortness of breath but otherwise has no other specific complaints, denying all other symptoms. Remainder of history is unobtainable. According to chart, patient has a history of penicillin ALLERGY; patient is unable to elaborate nature of ALLERGIC response According to medical record, the patient has significant history of substance abuse and is currently on methadone. He also has used cocaine and benzodiazepines. He has had multiple inpatient detox admissions Past History - Past Medical History Allergies/Adverse Reactions: Allergies Allergy/AdvReac Type Severity Reaction Status Date / Time Penicillins Allergy Severe Hives Verified 10/11/17 13:16 Home Medications: Ambulatory Orders Omeprazole [Prilosec] 40 mg PO DAILY 11/08/11 Clonidine HCl [Clonidine HCl ER] 0.2 mg PO BID 03/07/17 Quetiapine Fumarate [Seroquel -] 200 mg PO BID #60 tablet 05/01/17 Anemia: Yes (D/T ESOPHAGEAL VARICES/hemolytic anemia) Asthma: Yes Cancer: No Cardiac Disorders: No CVA: No COPD: No CHF: No Dementia: No Diabetes: No GI Disorders: Yes (gerd) Disorders: No HTN: Yes Hypercholesterolemia: No Kidney Stones: No Liver Disease: Yes (Cirrhosis) Psychiatric Problems: Yes (SCHIZO-AFFECTIVE.) Seizures: Yes (seiure r/t xanax last attack of 2014) - Surgical History Abdominal Surgery: No Appendectomy: No Cardiac Surgery: No Cholecystectomy: No Lung Surgery: No Neurologic Surgery: No Orthopedic Surgery: No - Reproductive History Testicular Surgery: No - Immunization History Td Vaccination: Yes Immunization Up to Date: Yes - Suicide/Smoking/Psychosocial Hx Smoking History: Current every day smoker Have you smoked in the past 12 months: No Number of Cigarettes Smoked Daily: 22 If you are a former smoker, when did you quit?: 2013 Cigars Per Day: 0 'Breaking Loose' booklet given: 04/06/17 Hx Alcohol Use: Yes Drug/Substance Use Hx: Yes Substance Use Type: Cocaine, Heroin, Tranquilizers Hx Substance Use Treatment: Yes (4 previous inpt detox @ [facility]) Review of Systems - Review of Systems Able to Perform ROS?: No *Physical Exam - Physical Exam Comments: GENERAL: Adult male, slurred speech, speaking in seentence fragments and unintelligible words. HEAD: Normal with no signs of trauma. EYES: PERRLA, EOMI, sclera anicteric, conjunctiva clear. ENT: Ears normal, nares patent, oropharynx clear without exudates. Dry mucous membranes. NECK: Normal range of motion, supple without lymphadenopathy, JVD, or masses. LUNGS: Scattered fine rhonchi right greater than left. No wheezes, and no crackles. HEART:Regular rate and rhythm, normal S1 and S2 without murmur, rub or gallop. ABDOMEN:.normal bowel sounds No guarding,tenderness or rebound.No masses No distention. EXTREMITIES: Normal range of motion, no edema. No clubbing or cyanosis. No erythema, or tenderness. NEUROLOGICAL: Cranial nerves II through XII grossly intact. Normal speech. No focal neurological deficits. MUSCULOSKELETAL: Back non-tender to palpation, no CVA tenderness SKIN: Warm, Dry, normal turgor, no rashes or lesions noted. Portable chest x-ray reveals right-sided right upper lobe and right lower lobe infiltrates 12-lead electrocardiogram reveals sinus tachycardia 117 bpm; axis, intervals and wave forms are normal limits; ST and T-wave abnormalities showed no specific pattern of acute ischemia ED Treatment Course - LABORATORY CBC & Chemistry Diagram: 12/09/17 23:50 12/09/17 23:50 Medical Decision Making - Medical Decision Making As noted above, patient is febrile on presentation with 103.9F rectal temp obtained. He is tachycardic with heart rate in the 130s, regular rhythm. Pulse oximetry on room air is 87% with increased to 94% on 3 L O2/NC. BP is 129 /78 On exam, other than dry mucous membranes, patient has fine rhonchi on inspiration right lung field greater than left lung Discharge instructions from [facility] (11/21/17) was found in patient's belongings: Patient was treated for marginal zone lymphoma, diagnosed on bone marrow aspirate, with rituximab . Patient confirmed diagnosis of lymphoma. Patient is unsure when he was last seen by his oncologist, when he last had Rituxan or whether he had any other chemotherapy. Laboratory evaluation notable for total white blood cell count of 800 (16% neutrophils)[ANC 128], hemoglobin 9.9/ Hematocrit 31.7, platelet 64,000 Chemistry notable for BUN of 21 with a creatinine of 1.0; magnesium is 1.5 with potassium 3.4. Cardiac enzymes are not elevated. BNP is slightly elevated at 776. urine tox + for methadone/ecstasy/benzodiazapines Initial Lactic acid is 3.2 (drawn at 11:45P) Although pt received Azithromycin/Ceftriaxone when CXR revealed pneumonia, in light of hx of malignancy and neutropenia, antibiotic coverage will be broadened. Vancomycin 1 gram IV ordered. 12/10/17 04:02 Second lactic acid is 4.5 Patient has received 2.5 L normal saline IV. Mentation has improved with patient now communicating in full sentences. His only complaint is chest pain. 12/10/17 05:17 BP decreasing steadily; currently 93/72. In light of hypotension and rising lactate, will start vasopressors. Dopamine 5 mcg/kg per minute as per protocol titrated to MAP 65. Discussed case with GINNING OPERATOR studio coordinator in ICU at [facility]. Patient approved for ICU bed 12/10/17 05:27 Case discussed with ; patient admitted to his service, ICU *DC/Admit/Observation/Transfer Diagnosis at time of Disposition: Sepsis Qualifiers: Sepsis type: sepsis due to unspecified organism Qualified Code(s): A41.9 - Sepsis, unspecified organism Neutropenia Qualifiers: Neutropenia type: secondary to cancer chemotherapy Qualified Code(s): D70.1 - Agranulocytosis secondary to cancer chemotherapy Pneumonia Qualifiers: Pneumonia type: due to unspecified organism Laterality: right Lung location: upper lobe of lung Qualified Code(s): J18.1 - Lobar pneumonia, unspecified organism - Discharge Dispostion Condition at time of disposition: Guarded Decision to Admit order: Yes - Referrals Referrals: Arturo Mdarid [Primary Care Provider] - - Patient Instructions - Post Discharge Activity
[2017-12-10] MEDS ORDERED: ACETAMINOPHEN INJECTION 100 ML IVPB ONE (00:30)
[2017-12-10] MEDS ORDERED: SODIUM CHLORIDE 1,000 ML IV STA ×3 (00:38→08:41)
[2017-12-10 01:00] LABS: HEMATOCRIT 31.7 % (35.4-49); HEMOGLOBIN 9.9 GM/dL (11.7-16.9); MCH 25.6 pg (25.7-33.7); MCHC 31.4 g/dl (32.0-35.9); MEAN CELL VOLUME 81.7 fl (80-96); MEAN PLT VOLUME 8.4 fl (7.5-11.1); PLATELET COUNT 64 K/MM3 (134-434); RBC 3.88 M/mm3 (4.00-5.60); RDW 18.3 % (11.9-15.9)
[2017-12-10 01:14] LABS: INR 1.22 (0.82-1.09); PROTHROMBIN TIME (PATIENT) 13.8 SEC (9.7-13.0)
[2017-12-10 01:22] LABS: URINE APPEARANCE CLEAR; URINE BILIRUBIN NEGATIVE (<2.0 mg/dL); URINE COLOR YELLOW; URINE GLUCOSE (UA) NEGATIVE (NEGATIVE); URINE KETONE NEGATIVE (NEGATIVE); URINE LEUK ESTERASE TRACE (NEGATIVE); URINE NITRITE NEGATIVE (NEGATIVE); URINE PROTEIN NEGATIVE (NEGATIVE); URINE UROBILINOGEN NEGATIVE mg/dL (0.2-1.0)
[2017-12-10 01:25] LABS: ALBUMIN 3.2 g/dl (3.4-5.0); ANION GAP 7 (8-16); BLOOD UREA NITROGEN 21 mg/dL (7-18); CALCIUM 8.3 mg/dL (8.5-10.1); CHLORIDE 101 mmol/L (98-107); CO2 31 mmol/L (21-32); GLUCOSE,RANDOM 100 mg/dL (74-106); MAGNESIUM 1.5 mg/dL (1.8-2.4); POTASSIUM 3.4 mmol/L (3.5-5.1); SGOT/AST 22 U/L (15-37); SGPT/ALT 20 U/L (12-78); SODIUM 139 mmol/L (136-145)
[2017-12-10 01:28] LABS: ALK PHOS 88 U/L (45-117); BILIRUBIN,TOTAL 0.3 mg/dL (0.2-1.0); N-TERMINAL BNP 776.29 pg/ml (5-125); TOT PROT 6.8 g/dl (6.4-8.2)
[2017-12-10 01:29] LABS: COCAINE, UR NEGATIVE ng/ml (CUTOFF=300); OPIATES, URI NEGATIVE ng/ml (CUTOFF=300); PHENCYCLIDINE,URINE NEGATIVE ng/ml (CUTOFF=25); URINE AMPHETAMINES NEGATIVE ng/ml (CUTOFF=500); URINE BARBITURATES NEGATIVE ng/ml (CUTOFF=200); URINE BENZODIAZEPINES POSITIVE ng/ml (CUTOFF=200)
[2017-12-10 01:30] LABS: METHADONE, UR POSITIVE ng/ml (CUTOFF=300)
[2017-12-10] MEDS ORDERED: ACETAMINOPHEN 1000 MG/100 ML VIAL (NON FORMULARY) IVPB ONE ×2 (01:33→17:54)
[2017-12-10] MEDS ORDERED: AZITHROMYCIN IVPB 500 MG in DEXTROSE 5%-WATER - 250 ML IVPB ONE (01:34)
[2017-12-10] MEDS ORDERED: CEFTRIAXONE 1 GM in DEXTROSE 5%-WATER - 100 ML IVPB ONE (01:34)
[2017-12-10] MEDS ORDERED: AZITHROMYCIN 500 MG VIAL IVPB ONE (01:36)
[2017-12-10] MEDS ORDERED: cefTRIAXone SODIUM 1 GM VIAL ONE (01:44)
[2017-12-10 01:45] LABS: URINE MUCUS RARE
[2017-12-10 02:24] LABS: WHITE BLOOD COUNT 0.8 K/mm3 (4.0-10.0)
[2017-12-10] MEDS ORDERED: IBUPROFEN 600 MG TABLET (FP) PO ONE ×2 (02:33→02:34)
[2017-12-10] MEDS ORDERED: VANCOMYCIN 1,000 MG in DEXTROSE 5%-WATER - 250 ML IVPB ONE (02:53)
[2017-12-10] MEDS ORDERED: VANCOMYCIN 1,000 MG VIAL (RESTRICTED TO ID ONLY) ONE (03:00)
[2017-12-10] MEDS ORDERED: DOPAMINE 400 MG/D5W - 400,000 MCG/250 ML INFUS.BAG IVPB ONE (05:21)
--- NOTE | 2017-12-10 08:35 | PN ---
Teaching Attending Note Name of Resident: Bandar Todd ATTENDING PHYSICIAN STATEMENT I saw and evaluated the patient. I reviewed the resident's note and discussed the case with the resident. I agree with the resident's findings and plan as documented. HPI from chart as unable to obtain from patient SUBJECTIVE:62yo M with PMH COPD, LUIZ on cpap, HTN, schizoaffective disorder, seizure, HCV, lymphoma on rituximab and continuous polysubstance abuse presented to [place] ER when EMS was called by the girlfriend for CP however EMS reported pt was confused, slurring words. ER staff was unable to get information from patient as he was confused. was noted to be febrile 103.9 with tachycardia and hypotension not responding to 3L NS. found to be pancytopenic with PNA. was started on dopamine and [facility] Pt arrived in the ICU at 730 this AM. is noted to be lethargic but responding to tactile stimuli, oriented to self only and does not remember arriving in the hospital. does not know why he is here but states may be because of breathing difficulty. states he was recently treated at [facility] for PNA and recently discharged. does not know for how long or what he is treated with is. is requesting methadone which he got yesterday and goes to methadone clinic at [facility]. denies CP, cough, fever, chills, N/V/C/D OBJECTIVE: Last Vital Signs Temp Pulse Resp BP Pulse Ox 100.4 F H 124 H 16 79/43 88 L 12/10/17 04:25 12/10/17 05:56 12/10/17 05:27 12/10/17 05:56 12/10/17 05:27 General lethargic. responsive to tactile stimuli, oriented to self only, + diaphoretic CV S1 S2 tachycardic Lungs coarse breath sounds anteriorly Abdomen soft NT/ND normoactive BS Extremities trace pitting edema, moves all extremities ASSESSMENT AND PLAN: 62yo M with PMH COPD, LUIZ on cpap, HTN, schizoaffective disorder, seizure, HCV, lymphoma on rituximab and continuous polysubstance abuse presented to [place] ER with confusion and slurred words. was found to be in septic shock due to suspected PNA, started on dopamine ggt and transferred to [facility] MICU 1. Septic shock due to suspected PNA- Tm 103.9 with tachycardia and lactic acidosis with hypotension. received 3L NS at [facility]. will bolus an additional liter. on dopamine ggt. will need central line placement and initiation of levo. received vanco/ceftriaxone/azithromcyin. consulted ID for broad spectrum abx as pt is immunocompromised. will attempt to get records from [facility] for treatment course. repeat labs stat 2. Pancytopenia- hx of lymphoma as per records on rituximab, unclear if pt is taking, consult oncology. obtain collateral records. repeat labs stat. neutropenic precautions. (ANC 136) 3. acute hypoxia respiratory failure- currently 100% on nonrebreather. suspected PNA. will obtain CXR until pt is more stable to go for CT chest. has hx of LUIZ. will need bipap HS. low threshold for intubation given poor mental status. titrate suplemental oxygen to maintain SpO2 >90%. ICU team management 4. Acute metabolic encephalopathy- in setting of septic shock and hypoxic failure with illicit substances. treat underlying acute issues. obtain collateral information from [facility] and family. frequent neurochecks. low threshold for intubation given poor mental status 5. Continuious polysubstance abuse- utox + methadone/ecstasy/BZD. pt requesting his methadone. will verify dose but hold at this time due to mental and breathing status. monitor for signs of withdrawal 6. seizure- no reported seizure like activity. will need to verify home medications and re-start. 7. schizoaffective disorder- verify home meds. EKG to check Qtc 8. HCV 9. lymphoma- unclear if compliant. oncology consulted 10. MICU monitoring The care of this patient involved high complexity decision making to prevent further life threatening deterioration of the patient's condition and/or to evaluate & treat vital organ system(s) failure or risk of failure. Critical care time spent in reviewing chart, evaluating patient and formulating plan - 45 minutes.
[2017-12-10 08:36] LABS: VENOUS PH 7.36 (7.32-7.42)
[2017-12-10 08:37] LABS: VENOUS PO2 26.5 mmHg (28-48)
[2017-12-10] MEDS ORDERED: CEFEPIME HCL/D5W 2 GM/50 ML BAG IVPB SCH (08:38)
[2017-12-10] MEDS ORDERED: MEROPENEM 1 GM in DEXTROSE 5%-WATER 100 ML IVPB SCH ×2 (08:43→18:00)
--- NOTE | 2017-12-10 08:56 | PN ---
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 with Dr Allan received rituxamib brought in by EMS with SOB he was found to have right sided infiltrated with elevated lactic acid he was given vancomycin/rocephin/zithromax in the ED at [facility] this am and transferred to [facility] ICU he is alert complains of right sided chest pain denies nausea or vomiting denies dysuria denies active substance use pen allergy - vancomycin/meropenem/zithromax cultures sent for chest ct appears acute and c/w bacterial process at this time- legionella urinary antigen stat contact oncology at [facility] to discuss-paged ?neupogen critical care eval in progress over 45 minutes spent in the care of this critically ill patient prognosis is guarded
[2017-12-10 09:09] LABS: BASO % 0.2 % (0-2.0); EOS % 0.6 % (0-4.5); HEMATOCRIT 29.5 % (35.4-49); HEMOGLOBIN 8.9 GM/dL (11.7-16.9); LYMPH % 43.5 % (8-40); MCH 25.7 pg (25.7-33.7); MCHC 30.1 g/dl (32.0-35.9); MEAN CELL VOLUME 85.2 fl (80-96); MEAN PLT VOLUME 8.3 fl (7.5-11.1); MONO % 44.7 % (3.8-10.2); PLATELET COUNT 50 K/MM3 (134-434); RBC 3.47 M/mm3 (4.00-5.60); RDW 18.4 % (11.9-15.9)
[2017-12-10] MEDS ORDERED: METHADONE HCL 10 MG TABLET PO ONE (09:10)
--- NOTE | 2017-12-10 09:12 | HP ---
Admitting History and Physical - Primary Care Physician PCP: Arturo Madrid MD - Admission Chief Complaint: Altered mental status, fever, chest pain, sob History of Present Illness: 62 yo M h/o copd, hep c w/ varices, seizure disorder, htn, schizoeffective disorder s/p suicidal attempt, polysubstance abuse currently on methadone detox BIBEMS due to AMS, fever, shortness of breath and chest pain. Patient was only oriented to person in ED and spiked a fever of 103F. He's found to have elevated lactic acid, WBC of 0.8, positive drug screen and electrolyte derangement on labs. Per ED note, his CXR showed PNA and he became persistently hypotensive after fluid resusitation while mental status slowly recovered. As a result, he's started on dopamine and transferred to the ICU for septic shock. Pt stated that he follows Dr. Allan at [facility] for his marginal zone lymphoma and received rituximab last monday. He goes to [facility] methadone clinic. Denies drug use, fever, chills, cough, n/v urinary or bowel sx. - Past Medical History Cardiovascular: Yes: HTN Pulmonary: Yes: COPD Gastrointestinal: Yes: Esophageal Varices Hepatobiliary: Yes: Cirrhosis Psych: Yes: Schizophrenia - Smoking History Smoking history: Current every day smoker Have you smoked in the past 12 months: No Aproximately how many cigarettes per day: 22 If you are a former smoker, when did you quit?: 2013 - Alcohol/Substance Use Hx Alcohol Use: Yes Home Medications - Allergies Allergies/Adverse Reactions: Allergies Allergy/AdvReac Type Severity Reaction Status Date / Time Penicillins Allergy Severe Hives Verified 10/11/17 13:16 - Home Medications Home Medications: Ambulatory Orders Omeprazole [Prilosec] 40 mg PO DAILY 11/08/11 Clonidine HCl [Clonidine HCl ER] 0.2 mg PO BID 03/07/17 Quetiapine Fumarate [Seroquel -] 200 mg PO BID #60 tablet 05/01/17 Family Disease History - Family Disease History Family Disease History: Other: Father (alzheimers ), Mother (neurotic,valium abuse ) Review of Systems Unable to obtain ROS, reason: Poor mental status Physical Examination Vital Signs: Vital Signs Temperature 98.2 F 12/10/17 06:55 Pulse Rate 113 H 12/10/17 08:15 Respiratory Rate 15 12/10/17 08:15 Blood Pressure 92/60 12/10/17 08:15 O2 Sat by Pulse Oximetry (%) 88 L 12/10/17 05:27 Constitutional: Yes: Mild Distress, Obese Eyes: Yes: Conjunctiva Clear HENT: Yes: Atraumatic, Normocephalic Neck: Yes: Supple, Trachea Midline Cardiovascular: Yes: Tachycardia, S1, S2 Respiratory: Yes: Poor Air Entry, Rales Gastrointestinal: Yes: Abdomen, Obese, Tenderness (RLQ) Musculoskeletal: Yes: Other (Diffuse pleuritic pain) Extremities: No: Calf Tenderness Edema: No Peripheral Pulses WNL: Yes Neurological: Yes: Lethargy Labs: CBC, BMP 12/09/17 23:50 12/09/17 23:50 Assessment/Plan 62 yo M admitted to the ICU for septic shock and AMS. Neutropenic fever - ANC 156 - On azithromycin, Vanco and meropenem - [place]-cultured - NPO and neutropenic precaution Septic shock - 2/2 possible PNA - On above-mentioned abx - On dopamine 5mcg - Received 2.5L NS and cont. 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 Allan COPD - Cont. all inhalers Hep C - Stable Polysubstance abuse - Will confirm methadone dose Schizoeffective disorder - Mood stable HTN - Hold all BP meds FEN - IVF - Replete lytes PRN - NPO DVT ppx - SCDS Dispo - Cont. to monitor in ICU Bandar Todd PGY2 [phone] Visit type - Emergency Visit Emergency Visit: No - New Patient This patient is new to me today: Yes Date on this admission: 12/10/17 - Critical Care Critical Care patient: Yes Total Critical Care Time (in minutes): 35 Critical Care Statement: The care of this patient involved high complexity decision making to prevent further life threatening deterioration of the patient 's condition and/or to evaluate & treat vital organ system(s) failure or risk of failure. Hospitalist Screening - Colonoscopy Questionnaire Colonoscopy Questionnaire: Colonoscopy Questionnaire - Patient: 50 - 75 years old and never had a screening colonoscopy: Unknown History of colon or rectal polyps, or CA: Unknown History of IBD, Crohn's disease or UC: Unknown History of abdominal radiation therapy as a child: Unknown - Relative: 1 with colon or rectal CA, or polyps at age 60 or younger: Unknown Colon or rectal CA diagnosed at age 45 or younger: Unknown Multiple relatives with colon or rectal CA: Unknown - Outcome: Screening Result: Negative Screen
[2017-12-10 09:15] LABS: WHITE BLOOD COUNT 1.3 K/mm3 (4.0-10.0)
[2017-12-10] MEDS ORDERED: MEROPENEM IVPB ONE (09:30)
[2017-12-10] MEDS ORDERED: SODIUM CHLORIDE IVPB ONE (09:30)
[2017-12-10 09:31] LABS: ALBUMIN 2.5 g/dl (3.4-5.0); ANION GAP 15 (8-16); BLOOD UREA NITROGEN 24 mg/dL (7-18); CALCIUM 7.4 mg/dL (8.5-10.1); CHLORIDE 106 mmol/L (98-107); CO2 20 mmol/L (21-32); GLUCOSE,RANDOM 52 mg/dL (74-106); MAGNESIUM 1.3 mg/dL (1.8-2.4); POTASSIUM 3.8 mmol/L (3.5-5.1); SODIUM 141 mmol/L (136-145)
[2017-12-10 09:36] LABS: BILIRUBIN,TOTAL 0.5 mg/dL (0.2-1.0); CREATININE 1.6 mg/dL (0.7-1.3); SGOT/AST 29 U/L (15-37); TOT PROT 5.4 g/dl (6.4-8.2)
[2017-12-10 09:41] LABS: ALK PHOS 76 U/L (45-117); SGPT/ALT 17 U/L (12-78)
[2017-12-10] MEDS ORDERED: METHADONE 80 MG, METHADONE 20 MG PO ONE (09:45)
[2017-12-10] MEDS ORDERED: METHADONE HCL 40 MG DISPERSABLE TABLET ONE (09:50)
[2017-12-10] MEDS ORDERED: METHADONE HCL 10 MG TABLET ONE (09:50)
--- NOTE | 2017-12-10 10:00 | CONSULT ---
Consult Consult Specialty:: hematology/oncology - History of Present Illness History of Present Illness: Patient seen and examined in the ICU. d/w ICU [employer] physician. Patient admitted for chest pain. Hx obtained from chart. As per ER 62yo M with PMH COPD, LUIZ on cpap, HTN, schizoaffective disorder, seizure, HCV, lymphoma on rituximab and continuous polysubstance abuse presented to [place] ER when EMS was called by the girlfriend for CP however EMS reported pt was confused, slurring words. ER staff was unable to get information from patient as he was confused. was noted to be febrile 103.9 with tachycardia and hypotension not responding to 3L NS. found to be pancytopenic with PNA. was started on dopamine and transferred to [facility] MICU. Pt arrived in the ICU at 730 this AM. is noted to be lethargic but responding to tactile stimuli, oriented to self only and does not remember arriving in the hospital. does not know why he is here but states may be because of breathing difficulty. states he was recently treated at [facility] for PNA and recently discharged. does not know for how long or what he is treated with is. is requesting methadone which he got yesterday and goes to methadone clinic at [facility]. - Past Medical History Cardio/Vascular: Yes: HTN Pulmonary: Yes: COPD Gastrointestinal: Yes: Esophageal Varices Hepatobiliary: Yes: Cirrhosis Psych: Yes: Schizophrenia - Alcohol/Substance Use Hx Alcohol Use: Yes - Smoking History Smoking history: Current every day smoker Have you smoked in the past 12 months: No Aproximately how many cigarettes per day: 22 If you are a former smoker, when did you quit?: 2013 Home Medications - Allergies Allergies/Adverse Reactions: Allergies Allergy/AdvReac Type Severity Reaction Status Date / Time Penicillins Allergy Severe Hives Verified 10/11/17 13:16 - Home Medications Home Medications: Ambulatory Orders Omeprazole [Prilosec] 40 mg PO DAILY 11/08/11 Clonidine HCl [Clonidine HCl ER] 0.2 mg PO BID 03/07/17 Quetiapine Fumarate [Seroquel -] 200 mg PO BID #60 tablet 05/01/17 Family Disease History - Family Disease History Family Disease History: Other: Father (alzheimers ), Mother (neurotic,valium abuse ) Physical Exam Vital Signs: Vital Signs Temperature 98.2 F 12/10/17 06:55 Pulse Rate 113 H 12/10/17 08:15 Respiratory Rate 15 12/10/17 08:15 Blood Pressure 91/56 12/10/17 09:42 O2 Sat by Pulse Oximetry (%) 90 L 12/10/17 07:30 Constitutional: Yes: Other (severe distress) Eyes: Yes: Conjunctiva Clear HENT: Yes: Atraumatic, Normocephalic Neck: Yes: Supple Cardiovascular: Yes: Tachycardia Respiratory: Yes: Accessory Muscle Use, Poor Air Entry, SOB, Tachypnea Gastrointestinal: Yes: Soft Extremities: Yes: WNL Edema: LLE: 1+, RLE: 1+ Neurological: Yes: Confusion Labs: CBC, BMP 12/10/17 09:00 12/10/17 09:00 Imaging - Results X-ray: Report Reviewed Assessment/Plan neutropenic septic shock--marginal zone lymphoma--on single agent Ritux ( received 4weekly doses) follows at [facility]--last treatment on monday. CHERYL pancytopenia-- chemo vs ongoing disease (had BM involvement of Lymphoma on diagnosis in 10/2017). complete abx. to consider anti-fungal Rx. granix daily until ANC improves at least to 3K. CT chest without contrast renal c.s check stat coags--r/o DIC check hep panel - HCV/HBV qIg levels Onc at [facility]--discussed with critically ill to consider transfer to [facility] once deemed stable to transferred per ICU.
--- NOTE | 2017-12-10 11:00 | PROC ---
Central Line Insertion Indication: CVP Monitoring, Vasopressor Risks and Benefits Explained: Yes Consent on Chart: Yes Central Line: Triple Lumen Catheter Anesthesia: 1% Lidocaine Sterile Technique: Yes Ultrasound Guided Assistance: Yes Position: Right Internal Jugular Post Insertion: Yes: Bilateral Breath Sounds, Bilateral Chest Expansion, Chest X-Ray Ordered Sterile Dressing Applied: Yes
--- NOTE | 2017-12-10 11:07 | CONSULT ---
Consult - text type - Consultation Consultation Note: PULM/CCM Pt seen and examined in ICU CC; hypotension, feverl HPI: Briefly Mr Rivera is a a 62 y/o man with hx of COPD, LUIZ on Noctural CPAP, HTN, HCV (treated/cured per pt), seizure hx, schizoaffective disorder and recent dx of mantle cell lymphoma, being treated at [facility], last dose of rituximab on ~ last week, apparent received GCSF as well. He presented to [facility] after girlfriend called because pt was C/o chest pain, sob and was altered. EMS found tp to be confused but directable. He was tx to ED without incident. In ED pt was febrile to 103, tachycardic, with SBP in 80s, Received 3L IVF, CAP coverage for sepsis. CXR with multifocal infiltrate. Labs notable for pancytopenia (ANC < 250), mild coagulopathy. Pt required peripheral dopamine for BP support. Lacate 3. Transfered to [facility] ICU for further care. In ICU pt received another 1L of fluid, remained hypotensive, TLC was placed. ABX broadend by ID for better PSA coverage. CT chest ordered. Cr and lactate rising. Pt was more oriented, had no nuchal rigidiity. UA was clear. Pt agitated and requesting his daily methadone. Confirmed dose with Clinic, dose given. Pt with progressive resp distress and AMS. Eventually in hypercapneic resp failure, failed NIVPPV, intubated without incident. Fungal coverage with Vori added. Vital Signs Temp 98.7 F 12/10/17 10:00 Pulse 110 H 12/10/17 10:00 Resp 15 12/10/17 08:15 BP 91/56 12/10/17 09:42 Pulse Ox 96 12/10/17 10:45 Intake & Output 12/09/17 12/09/17 12/10/17 11:59 23:59 11:59 Intake Total 4250 Output Total 500 Balance 3750 Weight 96 kg 107.3 kg Intake: IV 3300 DOPAMINE 400 MG/D5W - 400 300 ,000 mcg In 250 ml @ 2 MCG/KG/MIN 7.2 mls/hr IVPB TITR ONE Rx#: [id number] Normal Saline - 1,000 ml 1000 @ 1000 mls/hr IV ASDIR STA Rx#:[id number] Normal Saline - 1,000 ml 2000 @ 1000 mls/hr IV ASDIR STA Rx#:[id number] IVPB 950 Output: Urine 500 Void 500 Other: Voiding Method Indwelling Catheter Bowel Movement No Height 5 ft 11 in 5 ft 11 in Body Mass Index (BMI) 29.5 Weight Measurement Method Built in [facility] Weight Measurement Method Est/Stated by Patient CBCD WBC 1.3 K/mm3 (4.0-10.0) L* D 12/10/17 09:00 RBC 3.47 M/mm3 (4.00-5.60) L 12/10/17 09:00 Hgb 8.9 GM/dL (11.7-16.9) L D 12/10/17 09:00 Hct 29.5 % (35.4-49) L 12/10/17 09:00 MCV 85.2 fl (80-96) 12/10/17 09:00 MCHC 30.1 g/dl (32.0-35.9) L 12/10/17 09:00 RDW 18.4 % (11.9-15.9) H 12/10/17 09:00 Plt Count 50 K/MM3 (134-434) L D 12/10/17 09:00 MPV 8.3 fl (7.5-11.1) 12/10/17 09:00 CMP Sodium 141 mmol/L (136-145) 12/10/17 09:00 Potassium 3.8 mmol/L (3.5-5.1) 12/10/17 09:00 Chloride 106 mmol/L (98-107) 12/10/17 09:00 Carbon Dioxide 20 mmol/L (21-32) L D 12/10/17 09:00 Anion Gap 15 (8-16) 12/10/17 09:00 BUN 24 mg/dL (7-18) H 12/10/17 09:00 Creatinine 1.6 mg/dL (0.7-1.3) H D 12/10/17 09:00 Creat Clearance w eGFR 44.31 (>60) 12/10/17 09:00 Calcium 7.4 mg/dL (8.5-10.1) L 12/10/17 09:00 Total Bilirubin 0.5 mg/dL (0.2-1.0) D 12/10/17 09:00 AST 29 U/L (15-37) D 12/10/17 09:00 ALT 17 U/L (12-78) 12/10/17 09:00 Alkaline Phosphatase 76 U/L (45-117) 12/10/17 09:00 Total Protein 5.4 g/dl (6.4-8.2) L D 12/10/17 09:00 Albumin 2.5 g/dl (3.4-5.0) L D 12/10/17 09:00 INR, PTT INR 1.22 (0.82-1.09) H 12/09/17 23:50 Home Medications Medication Instructions Recorded Omeprazole [Prilosec] 40 mg PO DAILY 11/08/11 Clonidine HCl [Clonidine HCl ER] 0.2 mg PO BID 03/07/17 Quetiapine Fumarate [Seroquel -] 200 mg PO BID #60 tablet 05/01/17 Past Medical History Cardio/Vascular HTN Pulmonary COPD Gastrointestinal Esophageal Varices Hepatobiliary Cirrhosis Psych Schizophrenia Smoking History Smoking history Current every day smoker Aproximately how many 22 cigarettes per day If you are a former smoker, 2013 when did you quit? Alcohol/Substance Use Hx Alcohol Use Yes CXR: R> L multifocal infiltrate EKG reviewed no ischemic changes PE: Gen: moderately toxic appearing, somewhat confused but following commands HEENT: PERRL, EOMI, moist oral mucosa PULM: coarse crackles R > L, no wheezes, minimal accessory muscle use CV: tachy, no mrg appreciated ABD: soft, NT ND + BS EXT; no edema , 2+ pulses NEURO: knows he is in hospital , knows name, month. Confused as to recent hx. A/ 62 yo man with mantle cell lymphoma now with neutropenic septic shock and multifocal pna P/ -MV, 6cc/kg, Pplat < 30 (450cc) -volume resus -sedate for vent synchrony -levo , if > 15 will add julian and add stress dose -serial lactate, elevated by downtrending by afternoon -ID following, apprec recs. Ashley Caban Azith for now, low threshold to add Antifugal--Vori added -Onc following, appreciate res. adding another dose of GCSF -Will get CT chest today -DVT and GI prophy -ICU care [facility] [employer] [id number]
[2017-12-10] MEDS: TBO-FILGRASTIM 300 MCG/0.5 ML DISP.SYRINGE SQ SCH (11:19)
--- NOTE | 2017-12-10 11:41 | CONS ---
DATE OF CONSULTATION: 12/10/2017 REQUESTED BY: Hospitalist Service This is a 62-year-old man with a history of marginal zone lymphoma. He is apparently getting treatment at [facility] with Dr. Allan. Some of this history is from the chart, some is from the patient, who is quite awake at this time. He also has a history of substance use and is on methadone maintenance. He presents to the emergency room of [facility] late last night, brought in by EMS with complaints of shortness of breath. He was confused and slurring his speech. He was evaluated. Chest x-ray revealed right-sided infiltrates. He had a history of PENICILLIN allergy, which they were unable to confirm. He was given a dose of vancomycin, ceftriaxone, and Zithromax this morning at [facility]. He was noted to be neutropenic with a white count of 800 and he was noted to be in sepsis with a lactic acid of 3.2. Dopamine was started and he was transferred to the ICU at [facility] and I was asked to see him this morning. He is currently awake and alert and complaining of right-sided chest pain. He was apparently found with papers from discharge from [facility], confirming the diagnosis of marginal zone lymphoma. PAST MEDICAL HISTORY: Notable for anemia, esophageal varices, hemolytic anemia, asthma, GERD, liver cirrhosis. He has a history of schizoaffective disorder and he has a history of substance abuse, is on methadone. He is currently awake and alert and he reports he is HIV-negative. He has HIV results from 2017 confirming this as well. He denies any cough at all. He is allergic to PENICILLIN and the nature of the allergy is not known and his medication list is not available. SOCIAL HISTORY: He denies any active substance use and he denies any cigarette use at present. REVIEW OF SYSTEMS: He denies cough. He denies diarrhea, dysuria, or vomiting. PHYSICAL EXAMINATION: General: He is awake and alert. He is able to give a history. Vital Signs: Current temperature this morning is 98.2; he was 103.5 on arrival to the ER at [place]. HEENT: He is normocephalic. His eyes are anicteric. He has no conjunctival hemorrhages. He has poor dentition. No thrush or pharyngitis. Neck: Supple. He has no meningeal signs. Lungs: He is really unable to take a good breath. He has poor movement of air. It is difficult to appreciate any crackles or rhonchi. Lungs are overall clear. Heart: Regular rate and rhythm. Abdomen: Soft. He complains of discomfort on palpation everywhere, but he has no rebound or guarding. Extremities: Without edema. Skin: He has no rash. LABORATORIES: Notable for a white count of 800 with an ANC of 128, hemoglobin is 9.9, platelets are 64. His INR is 1.2. BUN 21 and creatinine 1 with normal LFTs and a lactic acid of 4.5. Repeat laboratories are pending. Urinalysis is trace leukocytes. Urine toxicology is positive for methadone, MDMA, and benzodiazepines and, as stated before, his HIV testing in January 2017 was negative. CHEST X-RAY: Right-sided infiltrates. SUMMARY: This is a 62-year-old man with neutropenic sepsis, septic shock, most likely on the basis of pneumonia; substance use; PENICILLIN allergy. We will treat him empirically with vancomycin, meropenem, and Zithromax, which he received already. Cultures have been sent. Will send a STAT legionella urinary antigen. Oncology has been paged at [facility] to discuss the patient's care. Question of Neupogen use. Critical Care evaluation in progress. Further recommendations to follow. Over 45 minutes was spent in the care of this difficult male patient. PROGNOSIS: Guarded. RIAN PERLA M.D. [id number]
[2017-12-10 12:04] LABS: ARTERIAL BLD GAS O2 SATURATION 89.2 % (90-98.9); ARTERIAL BLOOD GAS PO2 80.9 mmHg (80-100)
[2017-12-10 12:11] LABS: ALLENS TEST POSITIVE
[2017-12-10 12:16] LABS: ARTERIAL BLOOD GAS pH 6.95 (7.35-7.45); INR 1.39 (0.82-1.09)
[2017-12-10 12:19] LABS: ACTIVATED PTT 28.9 SECONDS (25.2-36.5)
[2017-12-10 12:59] LABS: FIBRINOGEN > 500.0 mg/dL (238-498)
[2017-12-10 13:12] LABS: ARTERIAL BLD GAS O2 SATURATION 95.7 % (90-98.9)
[2017-12-10 13:19] LABS: ALLENS TEST POSITIVE; ARTERIAL BLOOD GAS PCO2 94.1 mmHg (35-45)
[2017-12-10] MEDS ORDERED: PROPOFOL 1,000,000 MCG/100 ML VIAL ONE (13:19)
[2017-12-10] MEDS: PROPOFOL 1,000,000 MCG/100 ML VIAL IVPB SCH ×2 (13:30→20:22)
[2017-12-10] MEDS ORDERED: NOREPINEPHRINE BITARTRATE 4 MG/4 ML ML IV ONE ×3 (13:32→20:16)
--- NOTE | 2017-12-10 13:39 | PROC ---
Intubation - Intubation Reason for Intubation: Respiratory Failure Time of Intubation: 13:38 Intubation Method: orotracheal Blade used: Mac Tube Size (cm): 8.0 Tube position @ lip (cm): 24 Tube position confirmed by: CO2 detector, Breath sounds Breath Sounds after Intubation: equal Post Intubation Xray: Yes (going for CT now) Remarks: Grade I view, atraumatic intubation.
[2017-12-10] MEDS: NOREPINEPHRINE BITARTRATE 8,000 MCG in DEXTROSE 5%-WATER - 492 ML IV SCH ×2 (13:50→19:45)
[2017-12-10] MEDS ORDERED: MAGNESIUM SULFATE IN WATER 2 GM/50 ML IVPB IVPB ONE (14:15)
[2017-12-10] MEDS ORDERED: VORICONAZOLE 200 MG/20 ML VIAL (RESTRICTED TO ID) IVPB SCH (14:30)
[2017-12-10 14:44] LABS: ARTERIAL BLD GAS O2 SATURATION 99.5 % (90-98.9); ARTERIAL BLOOD GAS BASE EXCESS -8.1 meq/l (-2-2)
[2017-12-10] MEDS ORDERED: VORICONAZOLE IVPB SCH (14:45)
[2017-12-10] MEDS ORDERED: DEXTROSE 5% IVPB SCH (14:45)
[2017-12-10] MEDS ORDERED: WATER IVPB SCH (14:45)
[2017-12-10 14:48] LABS: ALLENS TEST POSITIVE; ARTERIAL BLOOD GAS PCO2 71.1 mmHg (35-45); ARTERIAL BLOOD GAS pH 7.11 (7.35-7.45)
--- NOTE | 2017-12-10 15:07 | CON.NEP ---
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 [place]--last treatment on monday. h/o copd, hep c w/ varices, seizure disorder, htn, schizoeffective disorder s/p suicidal attempt, polysubstance abuse on methadone detox - History Source History Provided By: Medical Record Limitations to Obtaining History: Intubated - Past Medical History Cardio/Vascular: Yes: HTN Pulmonary: Yes: COPD Gastrointestinal: Yes: Esophageal Varices Hepatobiliary: Yes: Cirrhosis Psych: Yes: Schizophrenia - Alcohol/Substance Use Hx Alcohol Use: Yes - Smoking History Smoking history: Current every day smoker Have you smoked in the past 12 months: No Aproximately how many cigarettes per day: 22 If you are a former smoker, when did you quit?: 2013 Home Medications - Allergies Allergies/Adverse Reactions: Allergies Allergy/AdvReac Type Severity Reaction Status Date / Time Penicillins Allergy Severe Hives Verified 10/11/17 13:16 - Home Medications Home Medications: Ambulatory Orders Omeprazole [Prilosec] 40 mg PO DAILY 11/08/11 Clonidine HCl [Clonidine HCl ER] 0.2 mg PO BID 03/07/17 Quetiapine Fumarate [Seroquel -] 200 mg PO BID #60 tablet 05/01/17 Family Disease History - Family Disease History Family Disease History: Other: Father (alzheimers ), Mother (neurotic,valium abuse ) Nephrology Consult - Height Height: 5 ft 11 in - Weight Weight: 236 lb 8.896 oz - BMI Body Mass Index (BMI): 33.0 - Lab Results CBC,BMP: CBC, BMP 12/10/17 09:00 12/10/17 09:00 Anion Gap: Anion Gap Anion Gap 15 (8-16) 12/10/17 09:00 - Physical Examination Vital Signs: Vital Signs Temperature 98.7 F 12/10/17 10:00 Pulse Rate 129 H 06/17/18 14:05 Respiratory Rate 24 12/10/17 13:54 Blood Pressure 76/60 12/10/17 14:05 O2 Sat by Pulse Oximetry (%) 94 L 12/10/17 13:54 Constitutional: Yes: Well Nourished Eyes: Yes: Other HENT: Yes: WNL, Atraumatic, Normocephalic Neck: Yes: WNL, Supple, Trachea Midline Cardiovascular: Yes: WNL, Regular Rate and Rhythm Respiratory: Yes: Mechanically Ventilated Gastrointestinal: Yes: WNL, Normal Bowel Sounds Musculoskeletal: Yes: WNL Extremities: Yes: WNL Edema: No Neurological: Yes: Unresponsive Psychiatric: Yes: Other Assessment/Plan neutropenic septic shock-- wbc 0.8 and fever BIBEMS due to AMS, febrile, h/o sob and chest pain, oriented to person only, temp 103, lactic acid 7 hypotensive on IVF and pressors now in icu seen by ID- on empirical abx pending sepsis w/u started on granix question of infiltrate on CXR pending CT scan of chest CHERYL non-oliguric- noted with clear urine output via erickson catheter creat elevated over his baseline PMHx- Underlying marginal zone lymphoma--on Ritux (received 4weekly doses) follows at [facility] [place]--last treatment on monday. copd hep c w/ varices, seizure disorder, htn, schizoeffective disorder s/p suicidal attempt, polysubstance abuse on methadone detox Plan- ivf pressors as needed
[2017-12-10] MEDS: DEXTROSE 5% IVPB SCH (16:02)
[2017-12-10] MEDS: WATER IVPB SCH (16:02)
[2017-12-10] MEDS: VORICONAZOLE IVPB SCH (16:02)
[2017-12-10] MEDS ORDERED: PT OWN MED DRAWER 7, Y5N ONE (16:20)
[2017-12-10] MEDS: VASOPRESSIN 50 UNITS in SODIUM CHLORIDE 97.5 ML IVPB SCH ×2 (16:51→20:57)
[2017-12-10] MEDS: VANCOMYCIN 1,500 MG in DEXTROSE 5%-WATER - 500 ML IVPB SCH (16:59)
[2017-12-10] MEDS ORDERED: MEROPENEM 1 GM in DEXTROSE 5%-WATER - 100 ML IVPB ONE (19:00)
--- NOTE | 2017-12-10 19:28 | EKG ---
Test Reason : Blood Pressure : / mmHG Vent. Rate : 117 BPM Atrial Rate : 117 BPM P-R Int : 000 ms QRS Dur : 090 ms QT Int : 334 ms P-R-T Axes : 000 065 057 degrees QTc Int : 465 ms SINUS TACHYCARDIA NONSPECIFIC ST AND T WAVE ABNORMALITY ABNORMAL ECG WHEN COMPARED WITH ECG OF 11-OCT-2017 15:00, VENT. RATE HAS INCREASED BY [address] NO LONGER ELEVATED IN INFERIOR LEADS NON-SPECIFIC CHANGE IN ST SEGMENT IN ANTEROLATERAL LEADS Confirmed by CURT WATERMAN, HEATHER ([id number]) on 12/10/2017 7:28:12 PM Referred By: MD PELAEZ Confirmed By:HEATHER ELIAS MD
--- NOTE | 2017-12-10 19:38 | EKG ---
Test Reason : Blood Pressure : / mmHG Vent. Rate : 111 BPM Atrial Rate : 111 BPM P-R Int : 244 ms QRS Dur : 088 ms QT Int : 360 ms P-R-T Axes : 073 070 056 degrees QTc Int : 489 ms SINUS TACHYCARDIA WITH 1ST DEGREE A-V BLOCK NONSPECIFIC T WAVE ABNORMALITY ABNORMAL ECG WHEN COMPARED WITH ECG OF 10-DEC-2017 02:01, [place] INTERVAL HAS INCREASED NONSPECIFIC T WAVE ABNORMALITY NO LONGER EVIDENT IN ANTERIOR LEADS NONSPECIFIC T WAVE ABNORMALITY, WORSE IN LATERAL LEADS Confirmed by HEATHER ELIAS MD ([id number]) on 12/10/2017 7:38:06 PM Referred By: RAMYA Jensen DR Confirmed By:HEATHER ELIAS MD
[2017-12-10] MEDS ORDERED: ELECTROLYTE-148 SOLN 1,000 ML IV SCH (20:00)
[2017-12-10] MEDS ORDERED: EPINEPHrine 1:1,000 - 30,000 MCG in DEXTROSE 5%-WATER - 220 ML IVPB SCH (20:45)
[2017-12-10] MEDS ORDERED: VASOPRESSIN 20 UNITS/ML VIAL IV ONE (20:54)
[2017-12-10 21:55] LABS: ALLENS TEST POSITIVE
[2017-12-10 22:00] LABS: ARTERIAL BLOOD GAS pH 7.09 (7.35-7.45)
[2017-12-10 22:01] LABS: ARTERIAL BLOOD GAS BASE EXCESS -14.2 meq/l (-2-2)
[2017-12-10 22:02] LABS: ARTERIAL BLD GAS O2 SATURATION 97.8 % (90-98.9); ARTERIAL BLOOD GAS PCO2 51.2 mmHg (35-45)
[2017-12-10] MEDS ORDERED: SODIUM BICARBONATE 8.4% 50 MEQ/50 ML VIAL IV STA (22:02)
[2017-12-11] MEDS ORDERED: CALCIUM CHLORIDE 1 GM/10 ML *DISP.SYRIN IVPUSH ONE (00:11)
[2017-12-11 01:08] LABS: ANION GAP 15 (8-16); BLOOD UREA NITROGEN 32 mg/dL (7-18); CHLORIDE 101 mmol/L (98-107); CO2 21 mmol/L (21-32); CREATININE 1.9 mg/dL (0.7-1.3); GLUCOSE,RANDOM 179 mg/dL (74-106); MAGNESIUM 2.1 mg/dL (1.8-2.4); PHOSPHOROUS 7.4 mg/dL (2.5-4.9); POTASSIUM 3.8 mmol/L (3.5-5.1); SGOT/AST 96 U/L (15-37); SGPT/ALT 50 U/L (12-78); SODIUM 137 mmol/L (136-145); TOT PROT 4.7 g/dl (6.4-8.2)
[2017-12-11 01:09] LABS: ALK PHOS 67 U/L (45-117)
[2017-12-11] MEDS ORDERED: MEROPENEM 2 GM in DEXTROSE 5%-WATER - 250 ML IVPB SCH (02:00)
[2017-12-11] MEDS: VORICONAZOLE IVPB SCH ×2 (02:50→16:12)
[2017-12-11] MEDS: WATER IVPB SCH ×2 (02:50→16:12)
[2017-12-11] MEDS: DEXTROSE 5% IVPB SCH ×2 (02:50→16:12)
--- NOTE | 2017-12-11 03:37 | PN ---
Progress Note (short form) - Note Progress Note: Mr. Rivera is a 62 yo man with mantle cell lymphoma admitted to our ICU w/ neutropenic septic shock and multifocal pna yesterday morning. He has required increasing doses of pressors eventually becoming max'ed on levophed and vasopressin. 1L plasmalyte bolus given without BP response. POCUS of heart (although suboptimal) shows good contractility. Calcium chloridex1 given. Epinephrine gtt added with improvement in BP from 60-70s to 110-120s. Repeat ABG done 7.09/51.2/122. P:F ratio = 203. Vent settings adjusted and sodium bicarb x2 amps given. Stress dose hydrocort started. Epi titrated off. Vaso titrating down now. Despite improvement in BP, Lactic acidosis worsening 5.6-->8-->11, most likely increased by his hypoperfusion state, epinephrine and sodium bicarb +/- volume down. Trended CVP 10-->7. Another 1L plasmalyte bolus given (total of 5 L since presenting to [facility]). He is making good amount of urine. Continued on broad coverage w/ khalif, vanc, levaquin and vori for source control. He has defervesced and HR improved. His hands and feet are cold. Formal echo ordered to r/o cardiogenic poor forward flow as possible contributor.
[2017-12-11] MEDS: VANCOMYCIN 1,500 MG in DEXTROSE 5%-WATER - 500 ML IVPB SCH ×2 (03:53→16:13)
[2017-12-11] MEDS: PROPOFOL 1,000,000 MCG/100 ML VIAL IVPB SCH ×2 (04:01→09:45)
[2017-12-11] MEDS: NOREPINEPHRINE BITARTRATE 8,000 MCG in DEXTROSE 5%-WATER - 492 ML IV SCH ×4 (04:14→19:45)
[2017-12-11] MEDS ORDERED: ELECTROLYTE-148 SOLN 1,000 ML IV SCH (04:15)
[2017-12-11] MEDS: HYDROCORTISONE SOD SUCCINATE 100 MG/2 ML VIAL IVPUSH SCH ×3 (04:17→21:17)
[2017-12-11] MEDS ORDERED: VASOPRESSIN 20 UNITS/ML VIAL IV ONE (04:21)
[2017-12-11] MEDS ORDERED: NOREPINEPHRINE BITARTRATE 4 MG/4 ML ML IV ONE ×2 (04:22→20:43)
[2017-12-11 06:19] LABS: HEMOGLOBIN 8.9 GM/dL (11.7-16.9); MCH 26.3 pg (25.7-33.7); MCHC 30.5 g/dl (32.0-35.9); MEAN PLT VOLUME 8.8 fl (7.5-11.1); PLATELET COUNT 41 K/MM3 (134-434); RBC 3.37 M/mm3 (4.00-5.60); RDW 18.8 % (11.9-15.9); WHITE BLOOD COUNT 6.8 K/mm3 (4.0-10.0)
--- NOTE | 2017-12-11 06:50 | PN ---
Progress Note, Physician Chief Complaint: ID ICU follow up for this 62 year old man with known mantle cell lymphoma getting Rituxin [facility] presents with septic shock and respiratory failure. Currently intubated and requiring pressor support along with 100 % FIO2. Antibiotic support as follows Vancomycn Meropenem Azithromycyn changed to Levoflox Voriconazole - Current Medication List Current Medications: Active Medications Fentanyl (Sublimaze Injection -) 100 mcg IVPUSH Q2H PRN PRN Reason: PAIN LEVEL 4 - 6 Stop: 12/11/17 14:14 Last Admin: 12/10/17 15:42 Dose: 100 mcg Hydrocortisone Sodium Succinate (Solu-Cortef -) 100 mg IVPUSH Q8H [facility] Stop: 12/12/17 04:01 Last Admin: 12/11/17 04:17 Dose: 100 mg Dopamine HCl/Dextrose (Dopamine 400 Mg/D5w -) 400,000 mcg in 250 mls @ 7.2 mls/ hr IVPB TITR ONE; Protocol Stop: 12/11/17 16:04 Last Titration: 12/10/17 05:56 Dose: 5 mcg/kg/min, 18 mls/hr Vancomycin HCl 1,500 mg/ (Dextrose) 500 mls @ 250 mls/hr IVPB Q12H [facility]; Protocol Last Admin: 12/11/17 03:53 Dose: 250 mls/hr Norepinephrine Bitartrate 8, (000 mcg/ Dextrose) 500 mls @ 18.75 mls/hr IV TITR [facility]; Protocol Last Admin: 12/11/17 04:14 Dose: 35 mcg/min, 131.25 mls/hr Vasopressin 50 units/ Sodium (Chloride) 100 mls @ 4.8 mls/hr IVPB ASDIR [facility]; Protocol Last Admin: 12/10/17 20:57 Dose: 6 units/hr, 12 mls/hr Propofol (Diprivan -) 1,000,000 mcg in 100 mls @ 3.219 mls/hr IVPB TITR [facility]; Protocol Last Admin: 12/11/17 04:01 Dose: 20 mcg/kg/min, 12.876 mls/hr Meropenem 2 gm/ Dextrose 250 mls @ 200 mls/hr IVPB Q8H-IV [facility] Last Admin: 12/11/17 01:45 Dose: 200 mls/hr Levofloxacin (Levaquin 750 Mg Premixed Ivpb -) 750 mg in 150 mls @ 150 mls/hr IVPB DAILY@1845 [facility]; Protocol Last Admin: 12/10/17 20:21 Dose: 150 mls/hr Parenteral Electrolytes (Plasma-Lyte 148 -) 1,000 mls @ 999 mls/hr IV ASDIR [facility] Last Admin: 12/10/17 20:21 Dose: 999 mls/hr Epinephrine 30,000 mcg/ (Dextrose) 250 mls @ 5.36 mls/hr IVPB TITR [facility]; Protocol Last Titration: 12/11/17 02:30 Dose: 0 mcg/kg/min, 0 mls/hr Tbo-Filgrastim (Granix -) 300 mcg SQ DAILY [facility] Last Admin: 12/10/17 11:19 Dose: 300 mcg - Objective Vital Signs: Vital Signs Temperature 98.6 F 12/11/17 04:00 Pulse Rate 105 H 12/11/17 04:14 Respiratory Rate 28 H 12/11/17 06:00 Blood Pressure 126/90 12/11/17 04:14 O2 Sat by Pulse Oximetry (%) 90 L 12/11/17 06:00 Constitutional: Yes: Other (INtubated) Cardiovascular: Yes: Tachycardia, S1, S2. No: Murmur Respiratory: Yes: WNL, Regular, CTA Bilaterally Gastrointestinal: Yes: WNL, Normal Bowel Sounds, Hepatomegaly. No: Tenderness, Tenderness, Rebound Extremities: Yes: Cool. No: Cold, Cyanosis Edema: No Labs: CBC, BMP 12/11/17 05:30 INR, PTT INR 1.39 (0.82-1.09) H 12/10/17 11:35 Fibrinogen > 500.0 mg/dL (238-498) H 12/10/17 11:35 Assessment/Plan Microbiology 12/10/17 09:05 Urine For Antigen Detection Legionella Antigen - Final 12/10/17 09:05 Urine For Antigen Detection Streptococcus pneumoniae Antigen (M - Final 12/09/17 23:50 Blood - Peripheral Venous Blood Culture - Preliminary NO GROWTH OBTAINED AFTER 24 HOURS, INCUBATION TO CONTINUE FOR 4 DAYS. 12/09/17 23:50 Blood - Peripheral Venous Blood Culture - Preliminary NO GROWTH OBTAINED AFTER 24 HOURS, INCUBATION TO CONTINUE FOR 4 DAYS. Laboratory Tests 12/09/17 12/10/17 12/10/17 23:50 09:00 14:35 WBC 0.8 L* D 1.3 L* D Hgb Hct Plt Count ABG pH ABG pCO2 at Pt Temp ABG pO2 at Pt Temp BUN Creatinine Lactic Acid Total Bilirubin AST ALT Alkaline Phosphatase Aspergillus Antibody Pending Beta-(1,3)-D-Glucan Pending 12/11/17 12/11/17 12/11/17 00:30 02:30 05:30 WBC 6.8 D Hgb 8.9 L Hct 29.0 L Plt Count 41 L ABG pH ABG pCO2 at Pt Temp ABG pO2 at Pt Temp BUN 32 H D Creatinine 1.9 H Lactic Acid 11.1 H* Total Bilirubin 1.0 D AST 96 H D ALT 50 D Alkaline Phosphatase 67 Aspergillus Antibody Beta-(1,3)-D-Glucan 12/11/17 05:30 WBC Hgb Hct Plt Count ABG pH 6.98 L* ABG pCO2 at Pt Temp 63.7 H* D ABG pO2 at Pt Temp 44.0 L* D BUN Creatinine Lactic Acid Total Bilirubin AST ALT Alkaline Phosphatase Aspergillus Antibody Beta-(1,3)-D-Glucan Assessment Mantle cell lymphoma S/P Rituxin Septic shock source suspected PNA in this immunocompromised host Neutropenic sepsis WBC up now with Neupogen Polysubstance abuse positive toxicology ! Plan Send viral PCR panel Fungal markers ordered Adjust antibiotic for renal failure today Await sputum and blood culture Voriconazole now at 4mg/kg Respiratory failure 100% FIO2 Lactic acidosis and respiratory acidosis Critical care time spent 35minutes Jer WATERMAN
[2017-12-11 06:53] LABS: CHLORIDE 95 mmol/L (98-107); POTASSIUM 4.2 mmol/L (3.5-5.1); SODIUM 133 mmol/L (136-145)
[2017-12-11] MEDS: VASOPRESSIN 50 UNITS in SODIUM CHLORIDE 97.5 ML IVPB SCH ×2 (07:00→20:26)
[2017-12-11 07:02] LABS: ALBUMIN 1.7 g/dl (3.4-5.0); ALK PHOS 71 U/L (45-117); ANION GAP 21 (8-16); BILIRUBIN,TOTAL 0.8 mg/dL (0.2-1.0); BLOOD UREA NITROGEN 33 mg/dL (7-18); CO2 17 mmol/L (21-32); CREATININE 1.9 mg/dL (0.7-1.3); GLUCOSE,RANDOM 222 mg/dL (74-106); MAGNESIUM 2.2 mg/dL (1.8-2.4); PHOSPHOROUS 7.4 mg/dL (2.5-4.9); SGOT/AST 134 U/L (15-37); SGPT/ALT 70 U/L (12-78); TOT PROT 4.3 g/dl (6.4-8.2)
[2017-12-11 07:21] LABS: CALCIUM 6.8 mg/dL (8.5-10.1)
[2017-12-11 08:34] LABS: ARTERIAL BLD GAS O2 SATURATION 94.4 % (90-98.9); ARTERIAL BLOOD GAS PO2 87.5 mmHg (80-100)
[2017-12-11 08:41] LABS: ALLENS TEST POSITIVE; ARTERIAL BLOOD GAS pH 7.06 (7.35-7.45)
[2017-12-11] MEDS ORDERED: PT OWN MED DRAWER 7, Y5N ONE ×3 (09:17→20:34)
[2017-12-11] MEDS: FAMOTIDINE 20 MG/50 ML IVPB 20 MG/50 ML MG IVPB SCH ×2 (09:21→21:18)
[2017-12-11] MEDS ORDERED: AZITHROMYCIN IVPB 500 MG in DEXTROSE 5%-WATER - 250 ML IVPB SCH (10:00)
--- NOTE | 2017-12-11 10:32 | PN ---
Progress Note, Physician Chief Complaint: The patient seen in the ICU. This is an extremely ill, 62yo M with PMH COPD, HTN, schizoaffective disorder, seizure, HCV, lymphoma on rituximab and continuous polysubstance abuse admitted with h/o chest pain. He was confused, but talking. He was febrile 103.9 with tachycardia and hypotension not responding to 3L NS. Found to be pancytopenic with Pneumonia. The clinical condition got worse , and he became profoundly hypotensive. Started on Levophed, and Vasopressin. He baceame extremely acidemic, and was intubated and started on mechanical vent. The pateint conrinues to be Hypoxemic in spite of 100% O2 and PEEP support. A Mon catheter is draining dair amounts of clear urine. - Current Medication List Current Medications: Active Medications Fentanyl (Sublimaze Injection -) 100 mcg IVPUSH Q2H PRN PRN Reason: PAIN LEVEL 4 - 6 Stop: 12/11/17 14:14 Last Admin: 12/10/17 15:42 Dose: 100 mcg Hydrocortisone Sodium Succinate (Solu-Cortef -) 100 mg IVPUSH Q8H [facility] Stop: 12/12/17 04:01 Last Admin: 12/11/17 04:17 Dose: 100 mg Dopamine HCl/Dextrose (Dopamine 400 Mg/D5w -) 400,000 mcg in 250 mls @ 7.2 mls/ hr IVPB TITR ONE; Protocol Stop: 12/11/17 16:04 Last Titration: 12/10/17 05:56 Dose: 5 mcg/kg/min, 18 mls/hr Vancomycin HCl 1,500 mg/ (Dextrose) 500 mls @ 250 mls/hr IVPB Q12H [facility]; Protocol Last Admin: 12/11/17 03:53 Dose: 250 mls/hr Norepinephrine Bitartrate 8, (000 mcg/ Dextrose) 500 mls @ 18.75 mls/hr IV TITR [facility]; Protocol Last Admin: 12/11/17 04:14 Dose: 35 mcg/min, 131.25 mls/hr Vasopressin 50 units/ Sodium (Chloride) 100 mls @ 4.8 mls/hr IVPB ASDIR [facility]; Protocol Last Admin: 12/11/17 07:00 Dose: 4 units/hr, 8 mls/hr Propofol (Diprivan -) 1,000,000 mcg in 100 mls @ 3.219 mls/hr IVPB TITR [facility]; Protocol Last Admin: 12/11/17 09:45 Dose: 20 mcg/kg/min, 12.876 mls/hr Parenteral Electrolytes (Plasma-Lyte 148 -) 1,000 mls @ 999 mls/hr IV ASDIR [facility] Last Admin: 12/10/17 20:21 Dose: 999 mls/hr Epinephrine 30,000 mcg/ (Dextrose) 250 mls @ 5.36 mls/hr IVPB TITR [facility]; Protocol Last Titration: 12/11/17 02:30 Dose: 0 mcg/kg/min, 0 mls/hr Voriconazole 500 mg/ Dextrose 300 mls @ 300 mls/hr IVPB BID@0300,1500 [facility] Meropenem 1 gm/ Dextrose 100 mls @ 200 mls/hr IVPB BID@0200,1400 [facility] Levofloxacin (Levaquin 250 Mg Premixed Ivpb -) 250 mg in 50 mls @ 50 mls/hr IVPB DAILY [facility] Last Admin: 12/11/17 09:21 Dose: 50 mls/hr Famotidine/Sodium Chloride (Pepcid 20 Mg Premixed Ivpb -) 20 mg in 50 mls @ 100 mls/hr IVPB BID [facility] Last Admin: 12/11/17 09:21 Dose: 100 mls/hr Tbo-Filgrastim (Granix -) 300 mcg SQ DAILY [facility] Last Admin: 12/10/17 11:19 Dose: 300 mcg - Objective Vital Signs: Vital Signs Temperature 100.4 F H 12/11/17 08:00 Pulse Rate 102 H 12/11/17 08:29 Respiratory Rate 28 H 12/11/17 08:29 Blood Pressure 113/81 12/11/17 08:00 O2 Sat by Pulse Oximetry (%) 93 L 12/11/17 08:29 Constitutional: Yes: Pallor HENT: Yes: Normocephalic Cardiovascular: Yes: Tachycardia, S1, S2 Respiratory: Yes: Mechanically Ventilated, Rales, Rhonchi Gastrointestinal: Yes: Hypoactive Bowel Sounds Extremities: Yes: Cool Edema: LLE: 1+, RLE: 1+ Neurological: Yes: Unresponsive Labs: CBC, BMP 12/11/17 05:30 12/11/17 05:30 INR, PTT INR 1.39 (0.82-1.09) H 12/10/17 11:35 Fibrinogen > 500.0 mg/dL (238-498) H 12/10/17 11:35 Problem List - Problems (1) Acute kidney failure Code(s): N17.9 - ACUTE KIDNEY FAILURE, UNSPECIFIED (2) Septic shock Code(s): A41.9 - SEPSIS, UNSPECIFIED ORGANISM; R65.21 - SEVERE SEPSIS WITH SEPTIC SHOCK (3) Neutropenia Code(s): D70.9 - NEUTROPENIA, UNSPECIFIED Qualifiers: Neutropenia type: secondary to cancer chemotherapy Qualified Code(s): D70.1 - Agranulocytosis secondary to cancer chemotherapy; T45.1X5A - Adverse effect of antineoplastic and immunosuppressive drugs, initial encounter (4) Pneumonia Code(s): J18.9 - PNEUMONIA, UNSPECIFIED ORGANISM Qualifiers: Pneumonia type: due to unspecified organism Laterality: right Lung location: upper lobe of lung Qualified Code(s): J18.1 - Lobar pneumonia, unspecified organism (5) Sepsis Code(s): A41.9 - SEPSIS, UNSPECIFIED ORGANISM Qualifiers: Sepsis type: sepsis due to unspecified organism Qualified Code(s): A41.9 - Sepsis, unspecified organism (6) Anemia Code(s): D64.9 - ANEMIA, UNSPECIFIED (7) Cocaine dependence Code(s): F14.20 - COCAINE DEPENDENCE, UNCOMPLICATED (8) Insomnia Code(s): G47.00 - INSOMNIA, UNSPECIFIED (9) Nicotine dependence Code(s): F17.200 - NICOTINE DEPENDENCE, UNSPECIFIED, UNCOMPLICATED (10) Opioid dependence on agonist therapy Code(s): F11.20 - OPIOID DEPENDENCE, UNCOMPLICATED (11) Pancytopenia Code(s): D61.818 - OTHER PANCYTOPENIA (12) Schizoaffective disorder Code(s): F25.9 - SCHIZOAFFECTIVE DISORDER, UNSPECIFIED (13) Asthma Code(s): J45.909 - UNSPECIFIED ASTHMA, UNCOMPLICATED (14) GERD (gastroesophageal reflux disease) Code(s): K21.9 - GASTRO-ESOPHAGEAL REFLUX DISEASE WITHOUT ESOPHAGITIS Qualifiers: Esophagitis presence: without esophagitis Qualified Code(s): K21.9 - Gastro -esophageal reflux disease without esophagitis (15) HTN (hypertension) Code(s): I10 - ESSENTIAL (PRIMARY) HYPERTENSION Qualifiers: Hypertension type: essential hypertension Qualified Code(s): I10 - Essential (primary) hypertension (16) Hepatitis C Code(s): B19.20 - UNSPECIFIED VIRAL HEPATITIS C WITHOUT HEPATIC COMA Qualifiers: Viral hepatitis chronicity: chronic Hepatic coma status: without hepatic coma Qualified Code(s): B18.2 - Chronic viral hepatitis C Assessment/Plan This is an extremely ille, 62yo M with PMH COPD, HTN, schizoaffective disorder, seizure, HCV, lymphoma on rituximab and continuous polysubstance abuse admitted with h/o chest pain. He was confused, but talking. He was febrile 103.9 with tachycardia and hypotension not responding to 3L NS. Found to be pancytopenic with Pneumonia. The clinical condition got worse , and he became profoundly hypotensive. Started on Levophed, and Vasopressin. He baceame extremely acidemic, and was intubated and started on mechanical vent. The pateint conrinues to be Hypoxemic in spite of 100% O2 and PEEP support. A Mon catheter is draining fair amounts of clear urine. * Acute hemodynamic Renal failure with Renal hypoperfusion. * Combined Metabolic and Respiratory acidosis, with severe acidemia. * Persistent hypoxemia refractory to Mechanical vent and FiO2 100% and PEEP. ( ET tube well placed) * Hypotension due to Septic shock. * The whole syndrome is one of severe sepsis. Suggest: Should continue the Pressor support to maintain adequate perfusion pressure. IV Sodium Bicarb is safe since the patient is mechanically ventilated. Broad spectrum Abx. Will monitor the renal functions with you. Thank you. Reyna Linares MD
[2017-12-11] MEDS ORDERED: SODIUM BICARBONATE 8.4% 50 MEQ/50 ML VIAL IVPB SCH (11:00)
[2017-12-11] MEDS: TBO-FILGRASTIM 300 MCG/0.5 ML DISP.SYRINGE SQ SCH (11:08)
[2017-12-11] MEDS ORDERED: SODIUM BICARBONATE 8.4% 50 MEQ/50 ML DISP.SYRIN IVPUSH ONE ×2 (11:15)
[2017-12-11] MEDS ORDERED: MIDAZOLAM 100 MG in SODIUM CHLORIDE 100 ML IVPB SCH (11:30)
--- NOTE | 2017-12-11 12:05 | PN ---
Teaching Attending Note Name of Resident: Pete Gauthier ATTENDING PHYSICIAN STATEMENT I saw and evaluated the patient. I reviewed the resident's note and discussed the case with the resident. I agree with the resident's findings and plan as documented. SUBJECTIVE: Pt seen and examined in the ICU. Remains intubated, sedated on levophed and vasopressin gtts. Vented on volume assist control with 100% fiO2, PEEP 8. OBJECTIVE: Vital Signs Period Temp Pulse Resp BP Sys/Sanches Pulse Ox Last 24 Hr 98 F-105.4 F 94-131 11-28 55-149/21-103 89-100 Intake & Output 12/08/17 12/09/17 12/10/17 12/11/17 23:59 23:59 23:59 23:59 Intake Total 6493.6 5867 Output Total 2100 500 Balance 4393.6 5367 Weight 96 kg 107.3 kg 114.901 kg Gen: intubated, sedated Heart: tachycardic, regular Lung: decreased breath sounds at the bases Abd: soft, nontender Ext: cold, cyanotic CBC, BMP 12/11/17 05:30 12/11/17 05:30 Active Medications Fentanyl (Sublimaze Injection -) 100 mcg IVPUSH Q2H PRN PRN Reason: PAIN LEVEL 4 - 6 Stop: 12/11/17 14:14 Last Admin: 12/10/17 15:42 Dose: 100 mcg Hydrocortisone Sodium Succinate (Solu-Cortef -) 100 mg IVPUSH Q8H [facility] Stop: 12/12/17 04:01 Last Admin: 12/11/17 11:42 Dose: 100 mg Dopamine HCl/Dextrose (Dopamine 400 Mg/D5w -) 400,000 mcg in 250 mls @ 7.2 mls/ hr IVPB TITR ONE; Protocol Stop: 12/11/17 16:04 Last Titration: 12/10/17 05:56 Dose: 5 mcg/kg/min, 18 mls/hr Vancomycin HCl 1,500 mg/ (Dextrose) 500 mls @ 250 mls/hr IVPB Q12H [facility]; Protocol Last Admin: 12/11/17 03:53 Dose: 250 mls/hr Norepinephrine Bitartrate 8, (000 mcg/ Dextrose) 500 mls @ 18.75 mls/hr IV TITR [facility]; Protocol Last Admin: 12/11/17 04:14 Dose: 35 mcg/min, 131.25 mls/hr Vasopressin 50 units/ Sodium (Chloride) 100 mls @ 4.8 mls/hr IVPB ASDIR [facility]; Protocol Last Admin: 12/11/17 07:00 Dose: 4 units/hr, 8 mls/hr Voriconazole 500 mg/ Dextrose 300 mls @ 300 mls/hr IVPB BID@0300,1500 [facility] Meropenem 1 gm/ Dextrose 100 mls @ 200 mls/hr IVPB BID@0200,1400 [facility] Levofloxacin (Levaquin 250 Mg Premixed Ivpb -) 250 mg in 50 mls @ 50 mls/hr IVPB DAILY [facility] Last Admin: 12/11/17 09:21 Dose: 50 mls/hr Famotidine/Sodium Chloride (Pepcid 20 Mg Premixed Ivpb -) 20 mg in 50 mls @ 100 mls/hr IVPB BID [facility] Last Admin: 12/11/17 09:21 Dose: 100 mls/hr Sodium Bicarbonate 150 meq/ (Dextrose) 1,150 mls @ 100 mls/hr IV Q11H [facility] Midazolam HCl 100 mg/ Sodium (Chloride) 100 mls @ 1 mls/hr IVPB TITR [facility]; Protocol Tbo-Filgrastim (Granix -) 300 mcg SQ DAILY [facility] Last Admin: 12/11/17 11:08 Dose: 300 mcg ASSESSMENT AND PLAN: Acute Hypoxic Respiratory Failure Pneumonia Neutropenic Septic Shock ARDS Acute Kidney Injury Severe Metabolic Acidosis/Lactic Acidosis Mantle Cell Lymphoma - continue antibiotics - f/u cultures - IVF to keep CVP 8-12 - titrate pressors to maintain MAP >65 - echocardiogram to r/o cardiogenic component - bicarb - monitor ABG - monitor urine output, creatinine - continue stress dose steroids - taper FiO2, PEEP to keep SpO2 >90% - low tidal volume ventilation - continue granix - monitor CBC - DVT/GI prophylaxis - prognosis guarded - continue ICU monitoring critical care time spent in reviewing chart, evaluating patient and formulating plan 35 min
[2017-12-11] MEDS: SODIUM BICARBONATE 8.4% - 150 MEQ in DEXTROSE 5%-WATER - 1,000 ML IV SCH (12:30)
[2017-12-11] MEDS: MIDAZOLAM 100 MG in SODIUM CHLORIDE 100 ML IVPB SCH (12:51)
[2017-12-11 13:56] LABS: ARTERIAL BLD GAS O2 SATURATION 97.2 % (90-98.9); ARTERIAL BLOOD GAS BASE EXCESS -9.4 meq/l (-2-2); ARTERIAL BLOOD GAS PCO2 58.6 mmHg (35-45); ARTERIAL BLOOD GAS pH 7.14 (7.35-7.45)
[2017-12-11] MEDS: MEROPENEM 1 GM in DEXTROSE 5%-WATER - 100 ML IVPB SCH (13:56)
[2017-12-11 13:58] LABS: ALLENS TEST POSITIVE
--- NOTE | 2017-12-11 14:15 | PN ---
Physical Exam: SUBJECTIVE: Patient seen and examined at bed side Sedated intubated on vaso 4 and levofed 35 , s/p 6 L NS , sat 100 % on mechanical vent vent settings TV 450, Peak flow 60, PEEP 8 , volume assist control. OBJECTIVE: Vital Signs Period Temp Pulse Resp BP Sys/Sanches Pulse Ox Last 24 Hr 98 F-105.4 F 94-121 15-28 55-149/21-103 89-100 GENERAL: intubated sedated , unresponsive HEAD: Normal with no signs of trauma. NECK: Trachea midline, supple. LUNGS: decrease breath sound at the bases HEART: sinus tach , S1, S2 without murmur, rub or gallop. ABDOMEN: Soft, ND/NT, no guarding, no rebound, EXTREMITIES: 2+ pulses, warm, well-perfused, no edema. NEUROLOGICAL: intubated sedated , unresonsive SKIN: Warm, dry,pale cold feet Laboratory Results - last 24 hr 12/09/17 12/09/17 12/10/17 23:50 23:50 09:00 WBC 0.8 L* D 1.3 L* D Corrected WBC (auto) Executive Director Of Marketing RBC 3.88 L 3.47 L Hgb 9.9 L 8.9 L D Hct 31.7 L 29.5 L MCV 81.7 85.2 MCH 25.6 L D 25.7 MCHC 31.4 L 30.1 L RDW 18.3 H 18.4 H Plt Count 64 L D 50 L D MPV 8.4 D 8.3 Absolute Neuts (auto) 0.2 0.1 Absolute Lymphs (auto) Cancelled Absolute Monos (auto) Cancelled Absolute Eos (auto) Cancelled Absolute Basos (auto) Cancelled Add Manual Diff Cancelled Total Counted Executive Director Of Marketing Cancelled 100 Neutrophils % Executive Director Of Marketing 11.0 L D Neutrophils % (Manual) 16.0 L D Cancelled 7.0 L D Band Neutrophils % 1.0 Cancelled Lymphocytes % Executive Director Of Marketing 43.5 H D Lymphocytes % (Manual) 79.0 H* D Cancelled 84.0 H* Monocytes % Executive Director Of Marketing 44.7 H D Monocytes % (Manual) 3 L Cancelled 8 D Eosinophils % Executive Director Of Marketing 0.6 Eosinophils % (Manual) 1.0 Cancelled Basophils % Executive Director Of Marketing 0.2 Basophils % (Manual) Executive Director Of Marketing Cancelled Myelocytes % (Man) Executive Director Of Marketing Cancelled 1 Promyelocytes % (Man) Executive Director Of Marketing Cancelled Blast Cells % (Manual) Executive Director Of Marketing Cancelled Nucleated RBC % 2 H Cancelled 7 H Metamyelocytes Executive Director Of Marketing Cancelled Differential Comment Executive Director Of Marketing Cancelled Hypersegmented Neuts Executive Director Of Marketing Cancelled Plasma Cells Executive Director Of Marketing Cancelled Smudge Cells Executive Director Of Marketing Cancelled Other Cell Type Executive Director Of Marketing Cancelled Hypochromia Executive Director Of Marketing Cancelled Toxic Granulation Executive Director Of Marketing Cancelled Dohle Bodies Executive Director Of Marketing Cancelled Cortes Rods Executive Director Of Marketing Cancelled Platelet Estimate Executive Director Of Marketing Cancelled Platelet Comment Executive Director Of Marketing Cancelled Normal RBC Morphology Cancelled Polychromasia Executive Director Of Marketing Cancelled Poikilocytosis Executive Director Of Marketing Cancelled Basophilic Stippling Executive Director Of Marketing Cancelled Anisocytosis Executive Director Of Marketing Cancelled Microcytosis Executive Director Of Marketing Cancelled Macrocytosis Executive Director Of Marketing Cancelled Spherocytes Executive Director Of Marketing Cancelled Siderocytes Executive Director Of Marketing Cancelled Sickle Cells Executive Director Of Marketing Cancelled Target Cells Executive Director Of Marketing Cancelled Tear Drop Cells Executive Director Of Marketing Cancelled Ovalocytes Executive Director Of Marketing Cancelled Stomatocytes Executive Director Of Marketing Cancelled Helmet Cells Executive Director Of Marketing Cancelled [place] Bodies Executive Director Of Marketing Cancelled [place] Rings Executive Director Of Marketing Cancelled [place] Cells Executive Director Of Marketing Cancelled Acanthocytes (Spur) Executive Director Of Marketing Cancelled Rouleaux Executive Director Of Marketing Cancelled Fragmented RBCs Executive Director Of Marketing Cancelled Schistocytes Executive Director Of Marketing Cancelled Anticoagulation Therapy Puncture Site Patient Temperature ABG pH ABG pCO2 at Pt Temp ABG pO2 at Pt Temp ABG HCO3 ABG O2 Sat (Measured) ABG O2 Content ABG Base Excess [place] Test O2 Delivery Device Oxygen Flow Rate Vent Mode Vent Rate Mechanical Rate PEEP Pressure Support Vent Sodium Potassium Chloride Carbon Dioxide Anion Gap BUN Creatinine Creat Clearance w eGFR Random Glucose Lactic Acid Calcium Phosphorus Magnesium Total Bilirubin AST ALT Alkaline Phosphatase Total Protein Albumin Random Vancomycin 12/10/17 12/10/17 12/10/17 14:30 14:35 18:10 WBC Corrected WBC (auto) RBC Hgb Hct MCV MCH MCHC RDW Plt Count MPV Absolute Neuts (auto) Absolute Lymphs (auto) Absolute Monos (auto) Absolute Eos (auto) Absolute Basos (auto) Add Manual Diff Total Counted Neutrophils % Neutrophils % (Manual) Band Neutrophils % Lymphocytes % Lymphocytes % (Manual) Monocytes % Monocytes % (Manual) Eosinophils % Eosinophils % (Manual) Basophils % Basophils % (Manual) Myelocytes % (Man) Promyelocytes % (Man) Blast Cells % (Manual) Nucleated RBC % Metamyelocytes Differential Comment Hypersegmented Neuts Plasma Cells Smudge Cells Other Cell Type Hypochromia Toxic Granulation Dohle Bodies Cort[place] Rods Platelet Estimate Platelet Comment Normal RBC Morphology Polychromasia Poikilocytosis Basophilic Stippling Anisocytosis Microcytosis Macrocytosis Spherocytes Siderocytes Sickle Cells Target Cells Tear Drop Cells Ovalocytes Stomatocytes Helmet Cells [place] Bodies [place] Rings Velia Cells Acanthocytes (Spur) Rouleaux Fragmented RBCs Schistocytes Anticoagulation Therapy Puncture Site Right radial Patient Temperature ABG pH 7.11 L* ABG pCO2 at Pt Temp 71.1 H* D ABG pO2 at Pt Temp 179.0 H* ABG HCO3 21.5 L ABG O2 Sat (Measured) 99.5 H ABG O2 Content 13.2 L ABG Base Excess -8.1 L [place] Test Positive O2 Delivery Device Oxygen Flow Rate Yes Vent Mode Vent Rate Mechanical Rate PEEP Pressure Support Vent Sodium Potassium Chloride Carbon Dioxide Anion Gap BUN Creatinine Creat Clearance w eGFR Random Glucose Lactic Acid 3.2 H* 5.6 H* Calcium Phosphorus Magnesium Total Bilirubin AST ALT Alkaline Phosphatase Total Protein Albumin Random Vancomycin 12/10/17 12/10/17 12/11/17 21:40 21:50 00:30 WBC Corrected WBC (auto) RBC Hgb Hct MCV MCH MCHC RDW Plt Count MPV Absolute Neuts (auto) Absolute Lymphs (auto) Absolute Monos (auto) Absolute Eos (auto) Absolute Basos (auto) Add Manual Diff Total Counted Neutrophils % Neutrophils % (Manual) Band Neutrophils % Lymphocytes % Lymphocytes % (Manual) Monocytes % Monocytes % (Manual) Eosinophils % Eosinophils % (Manual) Basophils % Basophils % (Manual) Myelocytes % (Man) Promyelocytes % (Man) Blast Cells % (Manual) Nucleated RBC % Metamyelocytes Differential Comment Hypersegmented Neuts Plasma Cells Smudge Cells Other Cell Type Hypochromia Toxic Granulation Dohle Bodies Cort[place] Rods Platelet Estimate Platelet Comment Normal RBC Morphology Polychromasia Poikilocytosis Basophilic Stippling Anisocytosis Microcytosis Macrocytosis Spherocytes Siderocytes Sickle Cells Target Cells Tear Drop Cells Ovalocytes Stomatocytes Helmet Cells [place] Bodies [place] Rings Velia Cells Acanthocytes (Spur) Rouleaux Fragmented RBCs Schistocytes Anticoagulation Therapy No Result Required. Puncture Site Right radial Patient Temperature ABG pH 7.09 L* ABG pCO2 at Pt Temp 51.2 H D ABG pO2 at Pt Temp 122.0 H D ABG HCO3 14.8 L* ABG O2 Sat (Measured) 97.8 ABG O2 Content 12.5 L ABG Base Excess -14.2 L* [place] Test Positive O2 Delivery Device Vent Oxygen Flow Rate 60% Vent Mode No Result Required. Vent Rate 25 Mechanical Rate No Result Required. PEEP 5.0 Pressure Support Vent 450 Sodium 137 Potassium 3.8 Chloride 101 Carbon Dioxide 21 Anion Gap 15 BUN 32 H D Creatinine 1.9 H Creat Clearance w eGFR 36.34 Random Glucose 179 H D Lactic Acid 8.0 H* Calcium 9.0 D Phosphorus 7.4 H Magnesium 2.1 D Total Bilirubin 1.0 D AST 96 H D ALT 50 D Alkaline Phosphatase 67 Total Protein 4.7 L Albumin 2.0 L Random Vancomycin 12/11/17 12/11/17 12/11/17 02:30 05:30 05:30 WBC 6.8 D Corrected WBC (auto) RBC 3.37 L Hgb 8.9 L Hct 29.0 L MCV 86.0 MCH 26.3 MCHC 30.5 L RDW 18.8 H Plt Count 41 L MPV 8.8 Absolute Neuts (auto) 0.2 Absolute Lymphs (auto) Absolute Monos (auto) Absolute Eos (auto) Absolute Basos (auto) Add Manual Diff Total Counted Neutrophils % No Result Required. Neutrophils % (Manual) Band Neutrophils % Lymphocytes % No Result Required. Lymphocytes % (Manual) Monocytes % Monocytes % (Manual) Eosinophils % Eosinophils % (Manual) Basophils % Basophils % (Manual) Myelocytes % (Man) Promyelocytes % (Man) Blast Cells % (Manual) Nucleated RBC % 2 H Metamyelocytes Differential Comment Hypersegmented Neuts Plasma Cells Smudge Cells Other Cell Type Hypochromia Toxic Granulation Dohle Bodies Cortes Rods Platelet Estimate Platelet Comment Normal RBC Morphology Polychromasia Poikilocytosis Basophilic Stippling Anisocytosis Microcytosis Macrocytosis Spherocytes Siderocytes Sickle Cells Target Cells Tear Drop Cells Ovalocytes Stomatocytes Helmet Cells [place] Bodies [place] Rings Velia Cells Acanthocytes (Spur) Rouleaux Fragmented RBCs Schistocytes Anticoagulation Therapy Cancelled Puncture Site Cancelled Patient Temperature Cancelled ABG pH Cancelled ABG pCO2 at Pt Temp Cancelled ABG pO2 at Pt Temp Cancelled ABG HCO3 Cancelled ABG O2 Sat (Measured) Cancelled ABG O2 Content Cancelled ABG Base Excess Cancelled [place] Test Cancelled O2 Delivery Device Cancelled Oxygen Flow Rate Cancelled Vent Mode Cancelled Vent Rate Cancelled Mechanical Rate Cancelled PEEP Cancelled Pressure Support Vent Cancelled Sodium Potassium Chloride Carbon Dioxide Anion Gap BUN Creatinine Creat Clearance w eGFR Random Glucose Lactic Acid 11.1 H* Calcium Phosphorus Magnesium Total Bilirubin AST ALT Alkaline Phosphatase Total Protein Albumin Random Vancomycin 12/11/17 12/11/17 12/11/17 05:30 07:30 08:20 WBC Corrected WBC (auto) RBC Hgb Hct MCV MCH MCHC RDW Plt Count MPV Absolute Neuts (auto) Absolute Lymphs (auto) Absolute Monos (auto) Absolute Eos (auto) Absolute Basos (auto) Add Manual Diff Total Counted Neutrophils % Neutrophils % (Manual) Band Neutrophils % Lymphocytes % Lymphocytes % (Manual) Monocytes % Monocytes % (Manual) Eosinophils % Eosinophils % (Manual) Basophils % Basophils % (Manual) Myelocytes % (Man) Promyelocytes % (Man) Blast Cells % (Manual) Nucleated RBC % Metamyelocytes Differential Comment Hypersegmented Neuts Plasma Cells Smudge Cells Other Cell Type Hypochromia Toxic Granulation Dohle Bodies Cortes Rods Platelet Estimate Platelet Comment Normal RBC Morphology Polychromasia Poikilocytosis Basophilic Stippling Anisocytosis Microcytosis Macrocytosis Spherocytes Siderocytes Sickle Cells Target Cells Tear Drop Cells Ovalocytes Stomatocytes Helmet Cells [place] Bodies [place] Rings Velia Cells Acanthocytes (Spur) Rouleaux Fragmented RBCs Schistocytes Anticoagulation Therapy Puncture Site Right brachial Patient Temperature ABG pH 7.06 L* ABG pCO2 at Pt Temp 60.0 H ABG pO2 at Pt Temp 87.5 D ABG HCO3 16.0 L ABG O2 Sat (Measured) 94.4 ABG O2 Content 12.6 L ABG Base Excess -14.0 L* [place] Test Positive O2 Delivery Device Vent Oxygen Flow Rate 100% Vent Mode A/c Vent Rate 28 Mechanical Rate Yes PEEP 8.0 Pressure Support Vent 450 Sodium 133 L Potassium 4.2 Chloride 95 L Carbon Dioxide 17 L Anion Gap 21 H BUN 33 H Creatinine 1.9 H Creat Clearance w eGFR 36.34 Random Glucose 222 H D Lactic Acid Calcium 6.8 L* D Phosphorus 7.4 H Magnesium 2.2 Total Bilirubin 0.8 AST 134 H D ALT 70 D Alkaline Phosphatase 71 Total Protein 4.3 L Albumin 1.7 L Random Vancomycin 37.75 12/11/17 13:40 WBC Corrected WBC (auto) RBC Hgb Hct MCV MCH MCHC RDW Plt Count MPV Absolute Neuts (auto) Absolute Lymphs (auto) Absolute Monos (auto) Absolute Eos (auto) Absolute Basos (auto) Add Manual Diff Total Counted Neutrophils % Neutrophils % (Manual) Band Neutrophils % Lymphocytes % Lymphocytes % (Manual) Monocytes % Monocytes % (Manual) Eosinophils % Eosinophils % (Manual) Basophils % Basophils % (Manual) Myelocytes % (Man) Promyelocytes % (Man) Blast Cells % (Manual) Nucleated RBC % Metamyelocytes Differential Comment Hypersegmented Neuts Plasma Cells Smudge Cells Other Cell Type Hypochromia Toxic Granulation Dohle Bodies Cort[place] Rods Platelet Estimate Platelet Comment Normal RBC Morphology Polychromasia Poikilocytosis Basophilic Stippling Anisocytosis Microcytosis Macrocytosis Spherocytes Siderocytes Sickle Cells Target Cells Tear Drop Cells Ovalocytes Stomatocytes Helmet Cells [place] Bodies [place] Rings [place] Cells Acanthocytes (Spur) Rouleaux Fragmented RBCs Schistocytes Anticoagulation Therapy Puncture Site Right brachial Patient Temperature ABG pH 7.14 L* ABG pCO2 at Pt Temp 58.6 H ABG pO2 at Pt Temp 109.0 H D ABG HCO3 19.1 L ABG O2 Sat (Measured) 97.2 ABG O2 Content 12.4 L ABG Base Excess -9.4 L [place] Test Positive O2 Delivery Device Vent Oxygen Flow Rate 100% Vent Mode Vent Rate 28 Mechanical Rate Yes PEEP 8.0 Pressure Support Vent Tidal volume 450 Sodium Potassium Chloride Carbon Dioxide Anion Gap BUN Creatinine Creat Clearance w eGFR Random Glucose Lactic Acid Calcium Phosphorus Magnesium Total Bilirubin AST ALT Alkaline Phosphatase Total Protein Albumin Random Vancomycin Active Medications Generic Name Dose Route Start Last Admin Trade Name Freq PRN Reason Stop Dose Admin Fentanyl 100 mcg 12/10/17 14:11 12/10/17 15:42 Sublimaze Injection - IVPUSH 12/11/17 14:14 100 mcg Q2H PRN Administration PAIN LEVEL 4 - 6 Hydrocortisone Sodium Succinate 100 mg 12/11/17 04:00 12/11/17 11:42 Solu-Cortef - IVPUSH 12/12/17 04:01 100 mg Q8H WALTER Administration Dopamine HCl/Dextrose 400,000 mcg in 250 mls @ 7.2 mls/hr 12/10/17 05:21 05:56 Dopamine 400 Mg/D5w - IVPB 12/11/17 16:04 5 mcg/kg/min TITR ONE 18 mls/hr Titration Protocol 2 MCG/KG/MIN Vancomycin HCl 1,500 mg/ 500 mls @ 250 mls/hr 12/10/17 16:00 12/11/17 03:53 Dextrose IVPB 250 mls/hr Q12H WALTER Administration Protocol Norepinephrine Bitartrate 8, 500 mls @ 18.75 mls/hr 12/10/17 14:15 12/11/17 12:43 000 mcg/ Dextrose IV 33 mcg/min TITR WALTER 123.75 mls/hr Administration Protocol 5 MCG/MIN Vasopressin 50 units/ Sodium 100 mls @ 4.8 mls/hr 12/10/17 16:00 12/11/17 13: 03 Chloride IVPB 3.5 units/hr ASDIR WALTER 7 mls/hr Titration Protocol 2.4 UNITS/HR Voriconazole 500 mg/ Dextrose 300 mls @ 300 mls/hr 12/11/17 15:00 IVPB BID@0300,1500 WALTER Meropenem 1 gm/ Dextrose 100 mls @ 200 mls/hr 12/11/17 14:00 12/11/17 13:56 IVPB 200 mls/hr BID@0200,1400 WALTER Administration Levofloxacin 250 mg in 50 mls @ 50 mls/hr 12/11/17 10:00 12/11/17 09:21 Levaquin 250 Mg Premixed Ivpb - IVPB 50 mls/hr DAILY WALTER Administration Famotidine/Sodium Chloride 20 mg in 50 mls @ 100 mls/hr 12/11/17 10:00 09:21 Pepcid 20 Mg Premixed Ivpb - IVPB 100 mls/hr BID WALTER Administration Sodium Bicarbonate 150 meq/ 1,150 mls @ 100 mls/hr 12/11/17 12:00 12/11/17 12 :30 Dextrose IV 100 mls/hr Q11H WALTER Administration Midazolam HCl 100 mg/ Sodium 100 mls @ 2 mls/hr 12/11/17 13:10 12/11/17 12:51 Chloride IVPB 2 mg/hr TITR WALTER 2 mls/hr Administration Protocol 2 MG/HR Tbo-Filgrastim 300 mcg 12/10/17 10:00 06/18/18 11:08 Granix - SQ 300 mcg DAILY WALTER Administration Microbiology 12/11/17 08:15 Trachea Insertion Site Viral Culture - Preliminary 12/09/17 23:50 Blood - Peripheral Venous Blood Culture - Preliminary NO GROWTH OBTAINED AFTER 24 HOURS, INCUBATION TO CONTINUE FOR 4 DAYS. 12/09/17 23:50 Blood - Peripheral Venous Blood Culture - Preliminary NO GROWTH OBTAINED AFTER 24 HOURS, INCUBATION TO CONTINUE FOR 4 DAYS. 12/10/17 09:05 Urine For Antigen Detection Legionella Antigen - Final 12/10/17 09:05 Urine For Antigen Detection Streptococcus pneumoniae Antigen (M - Final CBC, BMP 12/11/17 05:30 12/11/17 05:30 ASSESSMENT/PLAN: 62 year old man h/o COPD, HCV with varices, seizure disorder, HTN, polysubstance abuse, lymphoma, admitted with AMS, fever, sob, chest pain, neutropenic septic shock, respiratory failure requiring intubation. # ID - Neutropenic septic shock -PNA * on broad spectrum abx meropenem/vanco/ levaquin /voriconazol/ * hold vaco as trop is 37 , goal between 15 and 20 * repeat LA and vanco troph * f/u cx * # Pulm -Acute respiratory failure -PNA -right side effusion -possible ARDS -respiratory acidosis -R pleural effusion -copd * on acisted mechanical vent * Fio2 100, peak flow 60 , PEEP 8 , * continue broad spectrum abx * CT chest when stable * not candidate for paracentesis due to low Plt and septic shock # Cardiology -PSVT-brief episodes, otherwise sinus tach - hypotension in term od septic shock * Echo with normal EF, dont suspect CHF * monitor on tele * can not treat medically in term of septic shock * cont fluids, pressors and maintain MAP> 65 * once stable and continue PSVT we can start low dose BB * Dr Aleman recommendation appreciated # Heme - marginal cell lymphoma S/P rittux -pancytopenia chemo vs ongoing disease Bone marrow -coagulopathy , INR of 2 * was treated at [facility] with Dr Allan , called him and left voice mail , will try to reatch out to him tomorrow * On RIyux last treatment monday before admission * Dr Valera recommendation appreciated * neupogen support- to be continued * On antibiotics per ID- meropenem/vanco/vori/levaquin * Vit K 10mg IVPB. * Platelets transfusion to maintain above 20K if no bleeding * check parameters in the pm * started on granix # Nephro -CHERYL due to septic shock with possible renal ischemia - sever acidemia : acute respiratory and metabolic acidosis : cont Bicarb drip -renal doses all meds - LDH and uric acid # GI * NPO * Famotidine proph * Hepc with varices , f/u hep panel # Neuro * intubated sedated , unresponsive on pressors and versid * poly substance abuse on methadon * schisoaffective disorder # FEN * F: no standing fluids , sodium bicarb with d5w * E: monitor BMP * N: NPO # Proph * DVTS: SCDS B/L * GI: famotidine IV # Dispo * continue to monitor in ICU * Full code * poor prognosis * contact social media developer to find family contact for the patient , will reach out to them tomorrow Visit type - Emergency Visit Emergency Visit: Yes ED Registration Date: 12/10/17 Care time: The patient presented to the Emergency Department on the above date and was hospitalized for further evaluation of their emergent condition. - New Patient This patient is new to me today: Yes Date on this admission: 12/11/17 - Critical Care Critical Care patient: Yes Total Critical Care Time (in minutes): 45 Critical Care Statement: The care of this patient involved high complexity decision making to prevent further life threatening deterioration of the patient 's condition and/or to evaluate & treat vital organ system(s) failure or risk of failure.
[2017-12-11 17:21] LABS: PLATELET ESTIMATE DECREASED
--- NOTE | 2017-12-11 17:46 | PN ---
Progress Note (short form) - Note Progress Note: Patient seen and examined Intubated / sedated Last Vital Signs Temp Pulse Resp BP Pulse Ox 98.4 F 98 H 28 H 95/73 96 12/11/17 17:30 12/11/17 16:05 12/11/17 17:30 12/11/17 17:30 12/11/17 10:58 Cor: RSR, No murmurs, No gallops Lungs: Clear to P&A Abd: Soft, Normal bowel sounds, No organomegaly Ext:No significant edema Abnormal Lab Results 12/09/17 12/10/17 12/10/17 23:50 09:00 18:10 WBC 0.8 L* D 1.3 L* D RBC 3.88 L 3.47 L Hgb 9.9 L 8.9 L D Hct 31.7 L 29.5 L MCH 25.6 L D MCHC 31.4 L 30.1 L RDW 18.3 H 18.4 H Plt Count 64 L D 50 L D Neutrophils % 11.0 L D Neutrophils % (Manual) 16.0 L D 7.0 L D Lymphocytes % 43.5 H D Lymphocytes % (Manual) 79.0 H* D 84.0 H* Monocytes % 44.7 H D Monocytes % (Manual) 3 L Nucleated RBC % 2 H 7 H ABG pH ABG pCO2 at Pt Temp ABG pO2 at Pt Temp ABG HCO3 ABG O2 Content ABG Base Excess Sodium Chloride Carbon Dioxide Anion Gap BUN Creatinine Random Glucose Lactic Acid 5.6 H* Calcium Phosphorus AST Total Protein Albumin 12/10/17 12/10/17 12/11/17 21:40 21:50 00:30 WBC RBC Hgb Hct MCH MCHC RDW Plt Count Neutrophils % Neutrophils % (Manual) Lymphocytes % Lymphocytes % (Manual) Monocytes % Monocytes % (Manual) Nucleated RBC % ABG pH 7.09 L* ABG pCO2 at Pt Temp 51.2 H D ABG pO2 at Pt Temp 122.0 H D ABG HCO3 14.8 L* ABG O2 Content 12.5 L ABG Base Excess -14.2 L* Sodium Chloride Carbon Dioxide Anion Gap BUN 32 H D Creatinine 1.9 H Random Glucose 179 H D Lactic Acid 8.0 H* Calcium Phosphorus 7.4 H AST 96 H D Total Protein 4.7 L Albumin 2.0 L 12/11/17 12/11/17 12/11/17 02:30 05:30 05:30 WBC RBC 3.37 L Hgb 8.9 L Hct 29.0 L MCH MCHC 30.5 L RDW 18.8 H Plt Count 41 L Neutrophils % Neutrophils % (Manual) 3.0 L Lymphocytes % Lymphocytes % (Manual) 79.0 H* Monocytes % Monocytes % (Manual) Nucleated RBC % 10 H ABG pH ABG pCO2 at Pt Temp ABG pO2 at Pt Temp ABG HCO3 ABG O2 Content ABG Base Excess Sodium 133 L Chloride 95 L Carbon Dioxide 17 L Anion Gap 21 H BUN 33 H Creatinine 1.9 H Random Glucose 222 H D Lactic Acid 11.1 H* Calcium 6.8 L* D Phosphorus 7.4 H AST 134 H D Total Protein 4.3 L Albumin 1.7 L 12/11/17 12/11/17 08:20 13:40 WBC RBC Hgb Hct MCH MCHC RDW Plt Count Neutrophils % Neutrophils % (Manual) Lymphocytes % Lymphocytes % (Manual) Monocytes % Monocytes % (Manual) Nucleated RBC % ABG pH 7.06 L* 7.14 L* ABG pCO2 at Pt Temp 60.0 H 58.6 H ABG pO2 at Pt Temp 109.0 H D ABG HCO3 16.0 L 19.1 L ABG O2 Content 12.6 L 12.4 L ABG Base Excess -14.0 L* -9.4 L Sodium Chloride Carbon Dioxide Anion Gap BUN Creatinine Random Glucose Lactic Acid Calcium Phosphorus AST Total Protein Albumin Active Medications Generic Name Dose Route Start Last Admin Trade Name Freq PRN Reason Stop Dose Admin Hydrocortisone Sodium Succinate 100 mg 12/11/17 04:00 12/11/17 11:42 Solu-Cortef - IVPUSH 12/12/17 04:01 100 mg Q8H WALTER Administration Vancomycin HCl 1,500 mg/ 500 mls @ 250 mls/hr 12/10/17 16:00 12/11/17 16:13 Dextrose IVPB 250 mls/hr Q12H WALTER Administration Protocol Norepinephrine Bitartrate 8, 500 mls @ 18.75 mls/hr 12/10/17 14:15 12/11/17 16:05 000 mcg/ Dextrose IV 15 mcg/min TITR WALTER 56.25 mls/hr Administration Protocol 5 MCG/MIN Vasopressin 50 units/ Sodium 100 mls @ 4.8 mls/hr 12/10/17 16:00 12/11/17 13: 45 Chloride IVPB 3 units/hr ASDIR WALTER 6 mls/hr Titration Protocol 2.4 UNITS/HR Voriconazole 500 mg/ Dextrose 300 mls @ 300 mls/hr 12/11/17 15:00 12/11/17 16 :12 IVPB 300 mls/hr BID@0300,1500 WALTER Administration Meropenem 1 gm/ Dextrose 100 mls @ 200 mls/hr 12/11/17 14:00 12/11/17 13:56 IVPB 200 mls/hr BID@0200,1400 WALTER Administration Levofloxacin 250 mg in 50 mls @ 50 mls/hr 12/11/17 10:00 12/11/17 09:21 Levaquin 250 Mg Premixed Ivpb - IVPB 50 mls/hr DAILY WALTER Administration Famotidine/Sodium Chloride 20 mg in 50 mls @ 100 mls/hr 12/11/17 10:00 09:21 Pepcid 20 Mg Premixed Ivpb - IVPB 100 mls/hr BID WALTER Administration Sodium Bicarbonate 150 meq/ 1,150 mls @ 100 mls/hr 12/11/17 12:00 12/11/17 12 :30 Dextrose IV 100 mls/hr Q11H WALTER Administration Midazolam HCl 100 mg/ Sodium 100 mls @ 2 mls/hr 12/11/17 13:10 12/11/17 12:51 Chloride IVPB 2 mg/hr TITR WALTER 2 mls/hr Administration Protocol 2 MG/HR Tbo-Filgrastim 300 mcg 12/10/17 10:00 12/11/17 11:08 Granix - SQ 300 mcg DAILY WALTER Administration A/P 62 y/o patient with neutropenic septic shock--marginal zone lymphoma--on single agent Ritux (received 4weekly doses) follows at [facility]--last treatment on monday. CHERYL pancytopenia-- chemo vs ongoing disease (had BM involvement of Lymphoma on diagnosis in 10/2017). neupogen support On antibiotics per ID- meropenem/vanco/vori/levaquin renal failure -- check LDH/uric acid
[2017-12-11 20:19] LABS: URIC ACID 6.7 mg/dL (2.6-7.2)
--- NOTE | 2017-12-11 20:39 | PN ---
Progress Note, Physician Chief Complaint: INTUBATED IN ICU SEDATED - Current Medication List Current Medications: Active Medications Hydrocortisone Sodium Succinate (Solu-Cortef -) 100 mg IVPUSH Q8H [facility] Stop: 12/12/17 04:01 Last Admin: 12/11/17 11:42 Dose: 100 mg Vancomycin HCl 1,500 mg/ (Dextrose) 500 mls @ 250 mls/hr IVPB Q12H [facility]; Protocol Last Admin: 12/11/17 16:13 Dose: 250 mls/hr Norepinephrine Bitartrate 8, (000 mcg/ Dextrose) 500 mls @ 18.75 mls/hr IV TITR [facility]; Protocol Last Admin: 12/11/17 16:05 Dose: 15 mcg/min, 56.25 mls/hr Vasopressin 50 units/ Sodium (Chloride) 100 mls @ 4.8 mls/hr IVPB ASDIR [facility]; Protocol Last Admin: 12/11/17 20:26 Dose: Not Given Voriconazole 500 mg/ Dextrose 300 mls @ 300 mls/hr IVPB BID@0300,1500 [facility] Last Admin: 12/11/17 16:12 Dose: 300 mls/hr Meropenem 1 gm/ Dextrose 100 mls @ 200 mls/hr IVPB BID@0200,1400 [facility] Last Admin: 12/11/17 13:56 Dose: 200 mls/hr Levofloxacin (Levaquin 250 Mg Premixed Ivpb -) 250 mg in 50 mls @ 50 mls/hr IVPB DAILY [facility] Last Admin: 12/11/17 09:21 Dose: 50 mls/hr Famotidine/Sodium Chloride (Pepcid 20 Mg Premixed Ivpb -) 20 mg in 50 mls @ 100 mls/hr IVPB BID [facility] Last Admin: 12/11/17 09:21 Dose: 100 mls/hr Sodium Bicarbonate 150 meq/ (Dextrose) 1,150 mls @ 100 mls/hr IV Q11H [facility] Last Admin: 12/11/17 12:30 Dose: 100 mls/hr Midazolam HCl 100 mg/ Sodium (Chloride) 100 mls @ 2 mls/hr IVPB TITR [facility]; Protocol Last Admin: 12/11/17 12:51 Dose: 2 mg/hr, 2 mls/hr Tbo-Filgrastim (Granix -) 300 mcg SQ DAILY [facility] Last Admin: 12/11/17 11:08 Dose: 300 mcg - Objective Vital Signs: Vital Signs Temperature 98.7 F 12/11/17 19:30 Pulse Rate 100 H 12/11/17 20:00 Respiratory Rate 28 H 12/11/17 20:00 Blood Pressure 97/68 12/11/17 20:00 O2 Sat by Pulse Oximetry (%) 96 12/11/17 19:52 Constitutional: Yes: Other Cardiovascular: Yes: Tachycardia Respiratory: Yes: Mechanically Ventilated, Rhonchi Gastrointestinal: Yes: Other Genitourinary: Yes: Mon Present Musculoskeletal: Yes: Muscle Weakness Neurological: Yes: Other Labs: CBC, BMP 12/11/17 05:30 12/11/17 05:30 INR, PTT INR 1.39 (0.82-1.09) H 12/10/17 11:35 Fibrinogen > 500.0 mg/dL (238-498) H 12/10/17 11:35 Problem List - Problems (1) Lymphoma Code(s): C85.90 - NON-HODGKIN LYMPHOMA, UNSPECIFIED, UNSPECIFIED SITE (2) Acute kidney failure Code(s): N17.9 - ACUTE KIDNEY FAILURE, UNSPECIFIED (3) Neutropenia Code(s): D70.9 - NEUTROPENIA, UNSPECIFIED Qualifiers: Neutropenia type: secondary to cancer chemotherapy Qualified Code(s): D70.1 - Agranulocytosis secondary to cancer chemotherapy; T45.1X5A - Adverse effect of antineoplastic and immunosuppressive drugs, initial encounter (4) Pneumonia Code(s): J18.9 - PNEUMONIA, UNSPECIFIED ORGANISM Qualifiers: Pneumonia type: due to unspecified organism Laterality: right Lung location: upper lobe of lung Qualified Code(s): J18.1 - Lobar pneumonia, unspecified organism (5) Sepsis Code(s): A41.9 - SEPSIS, UNSPECIFIED ORGANISM Qualifiers: Sepsis type: sepsis due to unspecified organism Qualified Code(s): A41.9 - Sepsis, unspecified organism (6) Septic shock Code(s): A41.9 - SEPSIS, UNSPECIFIED ORGANISM; R65.21 - SEVERE SEPSIS WITH SEPTIC SHOCK (7) HTN (hypertension) Code(s): I10 - ESSENTIAL (PRIMARY) HYPERTENSION Qualifiers: Hypertension type: essential hypertension Qualified Code(s): I10 - Essential (primary) hypertension (8) Hepatitis C Code(s): B19.20 - UNSPECIFIED VIRAL HEPATITIS C WITHOUT HEPATIC COMA Qualifiers: Viral hepatitis chronicity: chronic Hepatic coma status: without hepatic coma Qualified Code(s): B18.2 - Chronic viral hepatitis C Assessment/Plan INTUBATED RESP SUPPORT ACUTE PNA IV ABX RENAL FAILURE IVF/NEPHROLOGY EVAL DVT PROPHYLAXIS ID AND ONCOLOGY F/U ICU TEAM CONSULT APPRECIATED
[2017-12-12] MEDS: SODIUM BICARBONATE 8.4% - 150 MEQ in DEXTROSE 5%-WATER - 1,000 ML IV SCH ×4 (00:10→21:52)
[2017-12-12] MEDS: MEROPENEM 1 GM in DEXTROSE 5%-WATER - 100 ML IVPB SCH ×2 (01:23→13:12)
[2017-12-12] MEDS: WATER IVPB SCH ×2 (02:01→15:11)
[2017-12-12] MEDS: DEXTROSE 5% IVPB SCH ×2 (02:01→15:11)
[2017-12-12] MEDS: VORICONAZOLE IVPB SCH ×2 (02:01→15:11)
[2017-12-12] MEDS: HYDROCORTISONE SOD SUCCINATE 100 MG/2 ML VIAL IVPUSH SCH (03:05)
[2017-12-12] MEDS: VANCOMYCIN 1,500 MG in DEXTROSE 5%-WATER - 500 ML IVPB SCH (03:06)
[2017-12-12 06:13] LABS: EOS % 0.4 % (0-4.5); HEMOGLOBIN 8.4 GM/dL (11.7-16.9); LYMPH % 37.7 % (8-40); MCH 25.7 pg (25.7-33.7); MCHC 31.2 g/dl (32.0-35.9); MEAN CELL VOLUME 82.5 fl (80-96); MONO % 44.4 % (3.8-10.2); NEUT % 17.5 % (42.8-82.8); RBC 3.27 M/mm3 (4.00-5.60); WHITE BLOOD COUNT 2.9 K/mm3 (4.0-10.0)
[2017-12-12 06:41] LABS: PLATELET COUNT 12 K/MM3 (134-434)
[2017-12-12 06:44] LABS: ALBUMIN 1.5 g/dl (3.4-5.0); ANION GAP 20 (8-16); CHLORIDE 88 mmol/L (98-107); CO2 21 mmol/L (21-32); GLUCOSE,RANDOM 136 mg/dL (74-106); MAGNESIUM 1.8 mg/dL (1.8-2.4); POTASSIUM 4.4 mmol/L (3.5-5.1); SGPT/ALT 336 U/L (12-78); SODIUM 129 mmol/L (136-145); URIC ACID 8.6 mg/dL (2.6-7.2)
[2017-12-12 06:49] LABS: ALK PHOS 70 U/L (45-117); BILIRUBIN,TOTAL 1.3 mg/dL (0.2-1.0); BLOOD UREA NITROGEN 45 mg/dL (7-18); LDH 700 U/L (87-241); PHOSPHOROUS 8.3 mg/dL (2.5-4.9)
[2017-12-12 07:00] LABS: ARTERIAL BLD GAS O2 SATURATION 81.3 % (90-98.9); ARTERIAL BLOOD GAS PCO2 59.4 mmHg (35-45); ARTERIAL BLOOD GAS PO2 59.7 mmHg (80-100)
[2017-12-12 07:08] LABS: ALLENS TEST POSITIVE
[2017-12-12 07:10] LABS: ARTERIAL BLOOD GAS pH 7.11 (7.35-7.45)
[2017-12-12 07:11] LABS: CALCIUM 6.6 mg/dL (8.5-10.1); SGOT/AST 574 U/L (15-37)
[2017-12-12 08:06] LABS: IGA IMMUNOGLOBULIN 150 mg/dL (90-386); IGG IMMUNOGLOBULIN 591 mg/dL (700-1600); IGM IMMUNOGLOBULIN 44 mg/dL (20-172)
[2017-12-12 08:25] LABS: BASO % 1.1 % (0-2.0); EOS % 0.5 % (0-4.5); HEMATOCRIT 27.3 % (35.4-49); HEMOGLOBIN 8.6 GM/dL (11.7-16.9); LYMPH % 29.7 % (8-40); MCH 25.9 pg (25.7-33.7); MCHC 31.3 g/dl (32.0-35.9); MEAN CELL VOLUME 82.5 fl (80-96); MEAN PLT VOLUME 9.8 fl (7.5-11.1); MONO % 50.1 % (3.8-10.2); NEUT % 18.6 % (42.8-82.8); RBC 3.31 M/mm3 (4.00-5.60); WHITE BLOOD COUNT 2.7 K/mm3 (4.0-10.0)
[2017-12-12 08:43] LABS: PLATELET COUNT 14 K/MM3 (134-434)
[2017-12-12] MEDS ORDERED: PT OWN MED DRAWER 7, Y5N ONE ×4 (08:47→14:13)
[2017-12-12 08:54] LABS: ANION GAP 21 (8-16); BLOOD UREA NITROGEN 45 mg/dL (7-18); CHLORIDE 86 mmol/L (98-107); CO2 21 mmol/L (21-32); CREATININE 3.1 mg/dL (0.7-1.3); GLUCOSE,RANDOM 129 mg/dL (74-106); SODIUM 128 mmol/L (136-145)
[2017-12-12 08:54] LABS: N-TERMINAL BNP 52726.9 pg/ml (5-125)
[2017-12-12] MEDS: FAMOTIDINE 20 MG/50 ML IVPB 20 MG/50 ML MG IVPB SCH ×2 (09:00→21:52)
--- NOTE | 2017-12-12 09:00 | PN ---
Progress Note (short form) - Note Progress Note: doing poorly pressors- vasopressin and levopohed intubated fi02 100% Vital Signs Period Temp Pulse Resp BP Sys/Sanches Pulse Ox Last 24 Hr 96.5 F-101.3 F 91-110 28-28 84-140/33-99 90-99 cor-rrr lungs decreased bs at bases abd soft,no distention erickson ext feet are cool and cyanotic CBC, BMP 12/12/17 08:00 CMP repeat is pending Laboratory Tests 12/11/17 12/12/17 07:30 05:30 Lactic Acid 9.8 H* Random Vancomycin 37.75 cxray right sided effusion/infiltrate a/p neutropenic sepsis/septic shock pneumonia-?effusion, awaiting chest CT, is it safe to tap the effusion? substance use peniciliin allergy continues to do poorly with profound acidosis overall prognosis is grim adjust meds for worsening renal function d/w ICU resident Dr Mota d/c vancomycin and check level
[2017-12-12 09:07] LABS: POTASSIUM 4.7 mmol/L (3.5-5.1)
[2017-12-12 09:08] LABS: CALCIUM 6.4 mg/dL (8.5-10.1)
[2017-12-12 10:08] LABS: ANISOCYTOSIS 2+; MACROCYTOSIS 1+; OVALOCYTE 1+; PLATELET ESTIMATE DECREASED
[2017-12-12] MEDS: NOREPINEPHRINE BITARTRATE 8,000 MCG in DEXTROSE 5%-WATER - 492 ML IV SCH ×3 (10:10→17:50)
[2017-12-12] MEDS: TBO-FILGRASTIM 300 MCG/0.5 ML DISP.SYRINGE SQ SCH (10:15)
--- NOTE | 2017-12-12 10:15 | PN ---
Progress Note, Physician Chief Complaint: The patient seen in the ICU. Doing very poorly. This is a 62yo M with PMH COPD, HTN, schizoaffective disorder, seizure, HCV, lymphoma on rituximab and continuous polysubstance abuse admitted with h/o chest pain. He remains hypotensive, on Levophed, and Vasopressin. Is Pancytopenic with Pneumonia. Remains in Oliguric Acute renal failure. The patient is sedated and poorly responsive. - Current Medication List Current Medications: Active Medications Vancomycin HCl 1,500 mg/ (Dextrose) 500 mls @ 250 mls/hr IVPB Q12H [facility]; Protocol Last Admin: 12/12/17 03:06 Dose: 250 mls/hr Norepinephrine Bitartrate 8, (000 mcg/ Dextrose) 500 mls @ 18.75 mls/hr IV TITR [facility]; Protocol Last Titration: 12/12/17 00:30 Dose: 25 mcg/min, 93.75 mls/hr Vasopressin 50 units/ Sodium (Chloride) 100 mls @ 4.8 mls/hr IVPB ASDIR [facility]; Protocol Last Titration: 12/12/17 00:30 Dose: 4 units/hr, 8 mls/hr Meropenem 1 gm/ Dextrose 100 mls @ 200 mls/hr IVPB BID@0200,1400 [facility] Last Admin: 12/12/17 01:23 Dose: 200 mls/hr Levofloxacin (Levaquin 250 Mg Premixed Ivpb -) 250 mg in 50 mls @ 50 mls/hr IVPB DAILY [facility] Last Admin: 12/12/17 09:00 Dose: 50 mls/hr Famotidine/Sodium Chloride (Pepcid 20 Mg Premixed Ivpb -) 20 mg in 50 mls @ 100 mls/hr IVPB BID [facility] Last Admin: 12/12/17 09:00 Dose: 100 mls/hr Sodium Bicarbonate 150 meq/ (Dextrose) 1,150 mls @ 100 mls/hr IV Q11H [facility] Last Admin: 12/12/17 00:10 Dose: 100 mls/hr Midazolam HCl 100 mg/ Sodium (Chloride) 100 mls @ 2 mls/hr IVPB TITR [facility]; Protocol Last Admin: 12/11/17 12:51 Dose: 2 mg/hr, 2 mls/hr Voriconazole 400 mg/ Dextrose 290 mls @ 300 mls/hr IVPB BID@0300,1500 [facility] Tbo-Filgrastim (Granix -) 300 mcg SQ DAILY [facility] Last Admin: 12/11/17 11:08 Dose: 300 mcg - Objective Vital Signs: Vital Signs Temperature 96.5 F L 12/12/17 08:00 Pulse Rate 92 H 12/12/17 08:28 Respiratory Rate 28 H 12/12/17 08:23 Blood Pressure 131/73 12/12/17 08:00 O2 Sat by Pulse Oximetry (%) 99 12/12/17 08:28 Neck: Yes: Trachea Midline Cardiovascular: Yes: Tachycardia, S1, S2 Respiratory: Yes: Mechanically Ventilated, Poor Air Entry, Rales, Rhonchi Gastrointestinal: Yes: Abdomen, Obese, Hypoactive Bowel Sounds Extremities: Yes: Cyanosis Edema: Yes Neurological: Yes: Unresponsive Labs: CBC, BMP 12/12/17 08:00 12/12/17 08:00 INR, PTT INR 1.39 (0.82-1.09) H 12/10/17 11:35 Fibrinogen > 500.0 mg/dL (238-498) H 12/10/17 11:35 Problem List - Problems (1) Acute kidney failure Code(s): N17.9 - ACUTE KIDNEY FAILURE, UNSPECIFIED (2) Septic shock Code(s): A41.9 - SEPSIS, UNSPECIFIED ORGANISM; R65.21 - SEVERE SEPSIS WITH SEPTIC SHOCK (3) Neutropenia Code(s): D70.9 - NEUTROPENIA, UNSPECIFIED Qualifiers: Neutropenia type: secondary to cancer chemotherapy Qualified Code(s): D70.1 - Agranulocytosis secondary to cancer chemotherapy; T45.1X5A - Adverse effect of antineoplastic and immunosuppressive drugs, initial encounter (4) Pneumonia Code(s): J18.9 - PNEUMONIA, UNSPECIFIED ORGANISM Qualifiers: Pneumonia type: due to unspecified organism Laterality: right Lung location: upper lobe of lung Qualified Code(s): J18.1 - Lobar pneumonia, unspecified organism (5) Sepsis Code(s): A41.9 - SEPSIS, UNSPECIFIED ORGANISM Qualifiers: Sepsis type: sepsis due to unspecified organism Qualified Code(s): A41.9 - Sepsis, unspecified organism (6) Anemia Code(s): D64.9 - ANEMIA, UNSPECIFIED (7) Cocaine dependence Code(s): F14.20 - COCAINE DEPENDENCE, UNCOMPLICATED (8) Insomnia Code(s): G47.00 - INSOMNIA, UNSPECIFIED (9) Nicotine dependence Code(s): F17.200 - NICOTINE DEPENDENCE, UNSPECIFIED, UNCOMPLICATED (10) Opioid dependence on agonist therapy Code(s): F11.20 - OPIOID DEPENDENCE, UNCOMPLICATED (11) Pancytopenia Code(s): D61.818 - OTHER PANCYTOPENIA (12) Schizoaffective disorder Code(s): F25.9 - SCHIZOAFFECTIVE DISORDER, UNSPECIFIED (13) Asthma Code(s): J45.909 - UNSPECIFIED ASTHMA, UNCOMPLICATED (14) GERD (gastroesophageal reflux disease) Code(s): K21.9 - GASTRO-ESOPHAGEAL REFLUX DISEASE WITHOUT ESOPHAGITIS Qualifiers: Esophagitis presence: without esophagitis Qualified Code(s): K21.9 - Gastro -esophageal reflux disease without esophagitis (15) HTN (hypertension) Code(s): I10 - ESSENTIAL (PRIMARY) HYPERTENSION Qualifiers: Hypertension type: essential hypertension Qualified Code(s): I10 - Essential (primary) hypertension (16) Hepatitis C Code(s): B19.20 - UNSPECIFIED VIRAL HEPATITIS C WITHOUT HEPATIC COMA Qualifiers: Viral hepatitis chronicity: chronic Hepatic coma status: without hepatic coma Qualified Code(s): B18.2 - Chronic viral hepatitis C Assessment/Plan This is an extremely ille, 62yo M with PMH COPD, HTN, schizoaffective disorder, seizure, HCV, lymphoma on rituximab and continuous polysubstance abuse admitted with h/o chest pain. Found to be pancytopenic with Pneumonia. Septic shock and Neutropenia : On Levophed and Vasopressin. Sepsis: On Multiple antibiotics per ID services. Profound thrombocytopenia: Related to the sepsis. ? Transfusion Acute Kidney failure: Initiated by the sepsis and hypotension, and now maintained by the renal hypoperfusion and possible renal ischemia. Severe acidemia: A combination of Acute Metabolic ( High AG) and Acute respiratory acidosis. Will continue Bicarb Over all prognosis seems guarded at this point. Will continue aggressive antibiotic, pressor and IV fluid support. ? Platelet transfusion. prognosis: Poor Reyna Linares MD
--- NOTE | 2017-12-12 10:32 | CON.CARD ---
Consult Consult Specialty:: Cardiology Referred by:: Dr. Gómez Reason for Consultation:: respiratory failure - History of Present Illness Chief Complaint: respiratory failure History of Present Illness: 62 year old man h/o COPD, HCV with varices, seizure disorder, HTN, polysubstance abuse, lymphoma, admitted with AMS, fever, sob, chest pain, neutropenic septic shock, respiratory failure requiring intubation. Pt seen and examined today, intubated, sedated, unresponsive. Pt being tx for pneumonia and neutropenic septic shock. History obtained from the chart. Echo 12/11/17-moderately reduce LV systolic function, no pericardial effusion, no sig valvular abnormalities noted. - History Source History Provided By: Medical Record Limitations to Obtaining History: Unresponsive - Past Medical History Cardio/Vascular: Yes: HTN Pulmonary: Yes: COPD Gastrointestinal: Yes: Esophageal Varices Hepatobiliary: Yes: Cirrhosis Psych: Yes: Schizophrenia - Alcohol/Substance Use Hx Alcohol Use: Yes - Smoking History Smoking history: Current every day smoker Have you smoked in the past 12 months: No Aproximately how many cigarettes per day: 22 If you are a former smoker, when did you quit?: 2014 Home Medications - Allergies Allergies/Adverse Reactions: Allergies Allergy/AdvReac Type Severity Reaction Status Date / Time Penicillins Allergy Severe Hives Verified 10/11/17 13:16 - Home Medications Home Medications: Ambulatory Orders Omeprazole [Prilosec] 40 mg PO DAILY 11/08/11 Clonidine HCl [Clonidine HCl ER] 0.2 mg PO BID 03/07/17 Quetiapine Fumarate [Seroquel -] 200 mg PO BID #60 tablet 05/01/17 Family Disease History - Family Disease History Family Disease History: Other: Father (alzheimers ), Mother (neurotic,valium abuse ) Review of Systems - Review of Systems Constitutional: reports: Fever, Malaise, Weakness. denies: No Symptoms, Chills , Diaphoresis, Lethargy, Loss of Appetite, Night Sweats, Unintentional Wgt. Loss , Other Eyes: denies: No Symptoms, Blind Spots, Blurred Vision, Double Vision, Eye Pain , Floaters, Photophobia, Recent Change in Vision, Other HENT: denies: No Symptoms, Difficult Swallowing, Ear Discharge, Ear Pain, Epistaxis, Gingival Bleeding, Hearing Loss, Mouth Swelling, Nasal Congestion, Ocular Prosthesis, Throat Pain, Toothache, Ringing in Ears, Other Neck: denies: No Symptoms, Decreased ROM, Lumps, Pain on Movement, Stiffness, Swollen Glands, Tenderness, Other Cardiovascular: reports: Chest Pain, Shortness of Breath. denies: No Symptoms, Edema, Palpitations, Other Respiratory: reports: SOB, SOB on Exertion. denies: No Symptoms, Cough, Exercise Intolerance, Hemoptysis, Orthopnea, PND, Snoring, Wheezing, Other Gastrointestinal: denies: No Symptoms, Abdominal Pain, Bloating, Constipation, Diarrhea, Dysphagia, Indigestion, Melena, Nausea, Rectal Bleeding, Vomiting, Vomiting Blood, Other Genitourinary: denies: No Symptoms, Burning, Discharge, Dysuria, Flank Pain, Frequency, Hematuria, Incontinence, Lesions, Menses, Pain, Testicular Mass, Testicular Pain, Testicular Swelling, Urgency, Vaginal Bleeding, Other Breasts: denies: No Symptoms Reported, See HPI, Breast Implants, Discharge from Nipple, Lumps, Pain, Skin Changes, Other Musculoskeletal: denies: No Symptoms, Back Pain, Crepitus, Decreased ROM, Extremity Pain, Joint Pain, Joint Swelling, Muscle Pain, Muscle Cramps, Muscle Weakness, Other Integumentary: denies: No Symptoms, Blister, Bruising, Change in Color, Eczema, Erythema, Incision, Lesions, Lump, Pallor, Pruritis, Rash, Wound, Other Neurological: reports: Change in LOC, Confusion. denies: No Symptoms, Change in Speech, Dizziness, Headache, Incoordination, Numbness, Parasthesia, Pre- Existing Deficit, Seizure, Syncope, Tremors, Unsteady Gait, Weakness, Other Endocrine: denies: No Symptoms, Excessive Sweating, Flushing, Increased Hunger, Increased Thirst, Intolerance to Cold, Intolerance to Heat, Unexplained Weight Gain, Unexplained Weight Loss, Other Hematology/Lymphatic: denies: No Symptoms, Easily Bruised, Excessive Bleeding, Swollen Glands, Other Psychiatric: denies: No Symptoms, Altered Sleep Pattern, Anxiety, Depression, Hallucinations, Panic, Paranoia, Suicidal, Other Vital Signs: Vital Signs Temperature 96.6 F L 12/12/17 10:00 Pulse Rate 94 H 12/12/17 10:10 Respiratory Rate 28 H 12/12/17 10:00 Blood Pressure 113/72 12/12/17 10:10 O2 Sat by Pulse Oximetry (%) 99 12/12/17 08:28 Constitutional: Yes: No Distress, Calm Respiratory: Yes: Regular, Diminished, Intubated, Mechanically Ventilated. No: Rales Gastrointestinal: Yes: Normal Bowel Sounds Cardiovascular: Yes: Regular Rate and Rhythm. No: Bradycardia, Tachycardia, Pulse Irregular, Gallop, Rub, Varicosities JVD: No Carotid Bruit: No PMI: Non-Displaced Heart Sounds: Yes: S1, S2. No: Split S2, S3, S4, Clicks, Gallop, Rub, Bruit Murmur: No: Systolic Murmur, Diastolic Murmur Edema: No Neurological: No: Alert, Oriented Psychiatric: No: Alert, Oriented - Other Data Labs, Other Data: CBC, BMP 12/12/17 08:00 12/12/17 08:00 INR, PTT INR 1.39 (0.82-1.09) H 12/10/17 11:35 Fibrinogen > 500.0 mg/dL (238-498) H 12/10/17 11:35 Troponin, BNP 12/11/17 17:21 B-Natriuretic Peptide 87768.90 H Troponin, BNP 12/11/17 17:21 B-Natriuretic Peptide 36368.90 H ekg sinus tach, 1st deg avb, nsst Echo: Report Reviewed Imaging - Results Chest X-ray: Report Reviewed, Image Reviewed EKG: Report Reviewed, Image Reviewed Other: Report Reviewed, Image Reviewed (tele-nsr, sinus tach, brief psvt) Assessment/Plan 62 year old man h/o COPD, HCV with varices, seizure disorder, HTN, polysubstance abuse, lymphoma, admitted with AMS, fever, sob, chest pain, neutropenic septic shock, respiratory failure requiring intubation. Pt seen and examined today, intubated, sedated, unresponsive. Pt being tx for pneumonia and neutropenic septic shock. History obtained from the chart. Echo 12/11/17-moderately reduce LV systolic function, no pericardial effusion, no sig valvular abnormalities noted. Respiratory failure-neutropenic septic shock, pna -echo as above moderate LV dysfunction, cardiac enzymes were wnl on admission, does not appear to be ACS -do not suspect significant decompensated CHF at this time -care as per ICU, pressors, abx, vent -would not diurese at this time, can use Lasix prn if fluid overload develops PSVT-brief episodes, otherwise sinus tach -monitor tele -would not tx medically at this time given ongoing septic shock and requirement for pressor support -eventually if BP tolerates and if PSVT continues can try low dose bbzonia
[2017-12-12 10:44] LABS: INR 2.33 (0.82-1.09)
[2017-12-12 10:45] LABS: FIBRINOGEN > 500.0 mg/dL (238-498)
[2017-12-12 10:47] LABS: ACTIVATED PTT 30.6 SECONDS (25.2-36.5)
--- NOTE | 2017-12-12 11:05 | PN ---
Progress Note (short form) - Note Progress Note: chart reviewed in detail doing poorly. Decreased UOP , worsening Cr, worsening platelets , now coagulopathic. Constitutional: Yes: intubated/sedated HENT: Yes: Atraumatic, Normocephalic Neck: Yes: Supple Cardiovascular: Yes: Tachycardia Respiratory: Intubated Gastrointestinal:ND NT Extremities: Yes: WNL Edema: LLE: 1+, RLE: 1+ Neurological: Yes:sedated Last Vital Signs Temp Pulse Resp BP Pulse Ox 96.6 F L 94 H 28 H 113/72 99 12/12/17 10:00 12/12/17 10:10 12/12/17 10:34 12/12/17 10:10 12/12/17 08:28 CBC, BMP 12/12/17 08:00 12/12/17 08:00 Current Medications Generic Name Dose Route Start Last Admin Trade Name Freq PRN Reason Stop Dose Admin Vancomycin HCl 1,500 mg/ 500 mls @ 250 mls/hr 12/10/17 16:00 12/12/17 03:06 Dextrose IVPB 250 mls/hr Q12H [facility] Administration Protocol Norepinephrine Bitartrate 8, 500 mls @ 18.75 mls/hr 12/10/17 14:15 12/12/17 10:10 000 mcg/ Dextrose IV 20 mcg/min TITR [facility] 75 mls/hr Administration Protocol 5 MCG/MIN Vasopressin 50 units/ Sodium 100 mls @ 4.8 mls/hr 12/10/17 16:00 12/12/17 07: 00 Chloride IVPB 3 units/hr ASDIR [facility] 6 mls/hr Titration Protocol 2.4 UNITS/HR Meropenem 1 gm/ Dextrose 100 mls @ 200 mls/hr 12/11/17 14:00 12/12/17 01:23 IVPB 200 mls/hr BID@0200,1400 [facility] Administration Levofloxacin 250 mg in 50 mls @ 50 mls/hr 12/11/17 10:00 12/12/17 09:00 Levaquin 250 Mg Premixed Ivpb - IVPB 50 mls/hr DAILY [facility] Administration Famotidine/Sodium Chloride 20 mg in 50 mls @ 100 mls/hr 12/11/17 10:00 09:00 Pepcid 20 Mg Premixed Ivpb - IVPB 100 mls/hr BID [facility] Administration Sodium Bicarbonate 150 meq/ 1,150 mls @ 100 mls/hr 12/11/17 12:00 12/12/17 10 :12 Dextrose IV Not Given Q11H [facility] Midazolam HCl 100 mg/ Sodium 100 mls @ 2 mls/hr 12/11/17 13:10 12/11/17 12:51 Chloride IVPB 2 mg/hr TITR [facility] 2 mls/hr Administration Protocol 2 MG/HR Voriconazole 400 mg/ Dextrose 290 mls @ 193.333 mls/hr 12/12/17 15:00 IVPB BID@0300,1500 [facility] Phytonadione 10 mg 12/12/17 10:56 Aqua Mephyton Injection - IVPB 12/12/17 10:57 ONCE ONE Tbo-Filgrastim 300 mcg 12/10/17 10:00 12/12/17 10:15 Granix - SQ 300 mcg DAILY [facility] Administration Neutropenic septic shock. pancytopenia h/o MZL (s/p Ritux) ATN. coagulopathy , INR of 2 pancytopenia-- chemo vs ongoing disease (had BM involvement of Lymphoma on diagnosis in 10/2017). neupogen support- to be continued On antibiotics per ID- meropenem/vanco/vori/levaquin Vit K 10mg IVPB. Platelets transfusion to maintain above 20K if no bleeding check parameters in the pm
[2017-12-12] MEDS ORDERED: PHYTONADIONE 10 MG/1 ML AMP IVPB ONE (11:30)
[2017-12-12 12:03] LABS: ANISOCYTOSIS 1+; MACROCYTOSIS 1+
[2017-12-12 12:04] LABS: OVALOCYTE 1+
[2017-12-12 12:05] LABS: PLATELET ESTIMATE DECREASED
--- NOTE | 2017-12-12 12:14 | PN ---
Teaching Attending Note Name of Resident: Pete Gauthier ATTENDING PHYSICIAN STATEMENT I saw and evaluated the patient. I reviewed the resident's note and discussed the case with the resident. I agree with the resident's findings and plan as documented. SUBJECTIVE: Patient seen and examined in the ICU. Remains intubated, sedated on levophed @ 20 mcq / vasopressin @ 3 units. Vented on volume assist control with 100% fiO2, PEEP 10. Progressive MOF. CXR: large right effusion / opacification OBJECTIVE: Intake & Output 12/09/17 12/10/17 12/11/17 12/12/17 23:59 23:59 23:59 23:59 Intake Total 6493.6 8210.8 3226 Output Total 2100 1050 60 Balance 4393.6 7160.8 3166 Weight 211 lb 10.3 oz 236 lb 8.896 oz 253 lb 5 oz 267 lb 6 oz Last Vital Signs Temp Pulse Resp BP Pulse Ox 96.6 F L 94 H 28 H 113/72 99 12/12/17 10:00 12/12/17 10:10 12/12/17 10:34 12/12/17 10:10 12/12/17 08:28 Active Medications Norepinephrine Bitartrate 8, (000 mcg/ Dextrose) 500 mls @ 18.75 mls/hr IV TITR [facility]; Protocol Last Admin: 12/12/17 10:10 Dose: 20 mcg/min, 75 mls/hr Vasopressin 50 units/ Sodium (Chloride) 100 mls @ 4.8 mls/hr IVPB [facility]; Protocol Last Titration: 12/12/17 07:00 Dose: 3 units/hr, 6 mls/hr Meropenem 1 gm/ Dextrose 100 mls @ 200 mls/hr IVPB BID@0200,1400 [facility] Last Admin: 12/12/17 01:23 Dose: 200 mls/hr Levofloxacin (Levaquin 250 Mg Premixed Ivpb -) 250 mg in 50 mls @ 50 mls/hr IVPB DAILY [facility] Last Admin: 12/12/17 09:00 Dose: 50 mls/hr Famotidine/Sodium Chloride (Pepcid 20 Mg Premixed Ivpb -) 20 mg in 50 mls @ 100 mls/hr IVPB BID [facility] Last Admin: 12/12/17 09:00 Dose: 100 mls/hr Sodium Bicarbonate 150 meq/ (Dextrose) 1,150 mls @ 100 mls/hr IV Q11H [facility] Last Admin: 12/12/17 10:12 Dose: Not Given Midazolam HCl 100 mg/ Sodium (Chloride) 100 mls @ 2 mls/hr IVPB TITR [facility]; Protocol Last Admin: 12/11/17 12:51 Dose: 2 mg/hr, 2 mls/hr Voriconazole 400 mg/ Dextrose 290 mls @ 193.333 mls/hr IVPB BID@0300,1500 [facility] Tbo-Filgrastim (Granix -) 300 mcg SQ DAILY [facility] Last Admin: 12/12/17 10:15 Dose: 300 mcg Gen: intubated, sedated Heart: tachycardic, regular Lung: decreased breath sounds at the bases Abd: soft, nontender Ext: cold, cyanotic Laboratory Results - last 24 hr 12/11/17 12/11/17 12/11/17 05:30 05:30 13:40 WBC RBC Hgb Hct MCV MCH MCHC RDW Plt Count MPV Absolute Neuts (auto) Total Counted Neutrophils % Neutrophils % (Manual) 3.0 L Band Neutrophils % 2.0 Lymphocytes % Lymphocytes % (Manual) 79.0 H* Monocytes % Monocytes % (Manual) 5 Eosinophils % Eosinophils % (Manual) 1.0 Basophils % Basophils % (Manual) 0.0 Myelocytes % (Man) Promyelocytes % (Man) Blast Cells % (Manual) Nucleated RBC % 10 H Metamyelocytes Hypochromia Platelet Estimate Decreased Platelet Comment No clumping noted Polychromasia Poikilocytosis Anisocytosis Microcytosis Macrocytosis Ovalocytes PT with INR INR PTT (Actin FS) Fibrinogen Anticoagulation Therapy Puncture Site Right brachial ABG pH 7.14 L* ABG pCO2 at Pt Temp 58.6 H ABG pO2 at Pt Temp 109.0 H D ABG HCO3 19.1 L ABG O2 Sat (Measured) 97.2 ABG O2 Content 12.4 L ABG Base Excess -9.4 L Saturnino Test Positive O2 Delivery Device Vent Oxygen Flow Rate 100% Vent Mode Vent Rate 28 Mechanical Rate Yes PEEP 8.0 Pressure Support Vent Tidal volume 450 Sodium Potassium Chloride Carbon Dioxide Anion Gap BUN Creatinine Creat Clearance w eGFR Random Glucose Lactic Acid Uric Acid Calcium Phosphorus Magnesium Total Bilirubin AST ALT Alkaline Phosphatase LD Total B-Natriuretic Peptide Total Protein Albumin Random Vancomycin IgG 591 L IgA 150 IgM 44 Blood Type Antibody Screen 12/11/17 12/12/17 12/12/17 17:21 05:30 05:30 WBC 2.9 L D RBC 3.27 L Hgb 8.4 L Hct 27.0 L MCV 82.5 MCH 25.7 MCHC 31.2 L RDW 19.0 H Plt Count 12 L* D MPV 10.0 D Absolute Neuts (auto) 0.5 Total Counted Neutrophils % 17.5 L D Neutrophils % (Manual) 13.0 L D Band Neutrophils % 0.0 Lymphocytes % 37.7 Lymphocytes % (Manual) 81.0 H* Monocytes % 44.4 H Monocytes % (Manual) 2 L Eosinophils % 0.4 Eosinophils % (Manual) 0.0 D Basophils % 0.0 Basophils % (Manual) 0.0 Myelocytes % (Man) 0 D Promyelocytes % (Man) 0 Blast Cells % (Manual) 0 Nucleated RBC % 3 H Metamyelocytes 1 Hypochromia 0 Platelet Estimate Decreased Platelet Comment Present Polychromasia 0 Poikilocytosis 3+ Anisocytosis 2+ Microcytosis 1+ Macrocytosis 1+ Ovalocytes 1+ PT with INR INR PTT (Actin FS) Fibrinogen Anticoagulation Therapy Puncture Site ABG pH ABG pCO2 at Pt Temp ABG pO2 at Pt Temp ABG HCO3 ABG O2 Sat (Measured) ABG O2 Content ABG Base Excess Saturnino Test O2 Delivery Device Oxygen Flow Rate Vent Mode Vent Rate Mechanical Rate PEEP Pressure Support Vent Sodium Potassium Chloride Carbon Dioxide Anion Gap BUN Creatinine Creat Clearance w eGFR Random Glucose Lactic Acid 9.8 H* Uric Acid 6.7 Calcium Phosphorus Magnesium Total Bilirubin AST ALT Alkaline Phosphatase LD Total 273 H B-Natriuretic Peptide 93958.90 H Total Protein Albumin Random Vancomycin IgG IgA IgM Blood Type Antibody Screen 12/12/17 12/12/17 12/12/17 05:30 06:00 08:00 WBC 2.7 L RBC 3.31 L Hgb 8.6 L Hct 27.3 L MCV 82.5 MCH 25.9 MCHC 31.3 L RDW 19.0 H Plt Count 14 L* MPV 9.8 Absolute Neuts (auto) 0.5 Total Counted 100 Neutrophils % 18.6 L Neutrophils % (Manual) 14.0 L Band Neutrophils % Lymphocytes % 29.7 D Lymphocytes % (Manual) 76.0 H* Monocytes % 50.1 H Monocytes % (Manual) 4 D Eosinophils % 0.5 Eosinophils % (Manual) 1.0 D Basophils % 1.1 D Basophils % (Manual) Myelocytes % (Man) Promyelocytes % (Man) Blast Cells % (Manual) Nucleated RBC % 3 H Metamyelocytes 1 Hypochromia Platelet Estimate Decreased Platelet Comment Polychromasia Poikilocytosis Anisocytosis 1+ Microcytosis 1+ Macrocytosis 1+ Ovalocytes 1+ PT with INR INR PTT (Actin FS) Fibrinogen Anticoagulation Therapy No Result Required. Puncture Site Right radial ABG pH 7.11 L* ABG pCO2 at Pt Temp 59.4 H ABG pO2 at Pt Temp 59.7 L D ABG HCO3 17.9 L ABG O2 Sat (Measured) 81.3 L ABG O2 Content 9.6 L* ABG Base Excess -11.0 L* Saturnino Test Positive O2 Delivery Device No Result Required. Oxygen Flow Rate 100% Vent Mode A/c Vent Rate 28 Mechanical Rate No Result Required. PEEP 8.0 Pressure Support Vent 450 Sodium 129 L Potassium 4.4 Chloride 88 L Carbon Dioxide 21 D Anion Gap 20 H BUN 45 H D Creatinine 3.0 H D Creat Clearance w eGFR 21.45 Random Glucose 136 H D Lactic Acid Uric Acid 8.6 H D Calcium 6.6 L* Phosphorus 8.3 H Magnesium 1.8 Total Bilirubin 1.3 H D AST 574 H D ALT 336 H D Alkaline Phosphatase 70 LD Total 700 H D B-Natriuretic Peptide Total Protein 4.0 L Albumin 1.5 L Random Vancomycin IgG IgA IgM Blood Type Antibody Screen 12/12/17 12/12/17 12/12/17 08:00 10:10 10:10 WBC RBC Hgb Hct MCV MCH MCHC RDW Plt Count MPV Absolute Neuts (auto) Total Counted Neutrophils % Neutrophils % (Manual) Band Neutrophils % Lymphocytes % Lymphocytes % (Manual) Monocytes % Monocytes % (Manual) Eosinophils % Eosinophils % (Manual) Basophils % Basophils % (Manual) Myelocytes % (Man) Promyelocytes % (Man) Blast Cells % (Manual) Nucleated RBC % Metamyelocytes Hypochromia Platelet Estimate Platelet Comment Polychromasia Poikilocytosis Anisocytosis Microcytosis Macrocytosis Ovalocytes PT with INR 26.30 H INR 2.33 H D PTT (Actin FS) 30.6 Fibrinogen > 500.0 H Anticoagulation Therapy Puncture Site ABG pH ABG pCO2 at Pt Temp ABG pO2 at Pt Temp ABG HCO3 ABG O2 Sat (Measured) ABG O2 Content ABG Base Excess Saturnino Test O2 Delivery Device Oxygen Flow Rate Vent Mode Vent Rate Mechanical Rate PEEP Pressure Support Vent Sodium 128 L Potassium 4.7 Chloride 86 L Carbon Dioxide 21 Anion Gap 21 H BUN 45 H Creatinine 3.1 H Creat Clearance w eGFR 20.66 Random Glucose 129 H Lactic Acid Uric Acid Calcium 6.4 L* Phosphorus Magnesium Total Bilirubin AST ALT Alkaline Phosphatase LD Total B-Natriuretic Peptide Total Protein Albumin Random Vancomycin IgG IgA IgM Blood Type O NEGATIVE Antibody Screen Negative 12/12/17 10:10 WBC RBC Hgb Hct MCV MCH MCHC RDW Plt Count MPV Absolute Neuts (auto) Total Counted Neutrophils % Neutrophils % (Manual) Band Neutrophils % Lymphocytes % Lymphocytes % (Manual) Monocytes % Monocytes % (Manual) Eosinophils % Eosinophils % (Manual) Basophils % Basophils % (Manual) Myelocytes % (Man) Promyelocytes % (Man) Blast Cells % (Manual) Nucleated RBC % Metamyelocytes Hypochromia Platelet Estimate Platelet Comment Polychromasia Poikilocytosis Anisocytosis Microcytosis Macrocytosis Ovalocytes PT with INR INR PTT (Actin FS) Fibrinogen Anticoagulation Therapy Puncture Site ABG pH ABG pCO2 at Pt Temp ABG pO2 at Pt Temp ABG HCO3 ABG O2 Sat (Measured) ABG O2 Content ABG Base Excess Saturnino Test O2 Delivery Device Oxygen Flow Rate Vent Mode Vent Rate Mechanical Rate PEEP Pressure Support Vent Sodium Potassium Chloride Carbon Dioxide Anion Gap BUN Creatinine Creat Clearance w eGFR Random Glucose Lactic Acid Uric Acid Calcium Phosphorus Magnesium Total Bilirubin AST ALT Alkaline Phosphatase LD Total B-Natriuretic Peptide Total Protein Albumin Random Vancomycin 48.48 IgG IgA IgM Blood Type Antibody Screen ASSESSMENT AND PLAN: Acute Hypoxic Respiratory Failure Pneumonia Neutropenic Septic Shock ARDS Acute Kidney Injury Severe Metabolic Acidosis/Lactic Acidosis Mantle Cell Lymphoma - Need family discussions / contact for update of critical condition/GOC - continue antibiotics - IVF - titrate pressors to maintain MAP >65 - Follow ECHO - bicarb - monitor ABG - monitor urine output, creatinine - continue stress dose steroids - taper FiO2, PEEP to keep SpO2 >90% - low tidal volume ventilation - Granix - monitor CBC - VTE / GI prophylaxis - prognosis appears poor - continue ICU monitoring Dr Castro Critical care time spent in reviewing chart, evaluating patient and formulating plan 35 min
[2017-12-12] MEDS: MIDAZOLAM 100 MG in SODIUM CHLORIDE 100 ML IVPB SCH (13:10)
[2017-12-12] MEDS ORDERED: VASOPRESSIN 20 UNITS/ML VIAL IV ONE (13:46)
--- NOTE | 2017-12-12 14:32 | PN ---
Physical Exam: SUBJECTIVE: Patient seen and examined in ICU at bed side. intubated sedated , on levofed 20 mc and vasopressin 3 units , and becarb drip on mechanical assisted ventilation with fio2 100% , PEEP 8 , peak flow 60 , worsening ABG,cecreased urine out put 60 cc , worsening Cr 3.1 , worsening platelets 14 , worsening coagulopathic. OBJECTIVE: Vital Signs Period Temp Pulse Resp BP Sys/Sanches Pulse Ox Last 24 Hr 96.5 F-101.2 F 90-104 26-28 84-138/54-81 90-99 GENERAL: sedated intubated , unresponsive HEAD: Normal with no signs of trauma. EYES: pin point pupils ENT: dry mucous membranes. NECK: Trachea midline, supple. LUNGS: decrease breath sounds at the bases HEART: RRR, S1, S2 without murmur, rub or gallop. ABDOMEN: SoftND/NT, +BS , no guarding, no rebound, EXTREMITIES: 2+ pulses, cold to touch , no edema. NEUROLOGICAL: intubated sedated PSYCH: Normal mood, normal affect. SKIN: Warm, dry, B/L feet are pale and cold due to vasopressors INR, PTT INR 2.33 (0.82-1.09) H D 12/12/17 10:10 Fibrinogen > 500.0 mg/dL (238-498) H 12/12/17 10:10 12/12/17 08:00 12/12/17 08:00 Microbiology 12/10/17 14:45 Sputum Culture - Preliminary Sputum - Endotrachea Suction/Ventilator NORMAL RESPIRATORY [place] 12/10/17 00:05 Urine Culture - Preliminary Urine - Urine Clean Catch Staphylococcus Coagulase Neg 12/09/17 23:50 Blood Culture - Preliminary Blood - Peripheral Venous NO GROWTH OBTAINED AFTER 48 HOURS, INCUBATION TO CONTINUE FOR 3 DAYS. 12/09/17 23:50 Blood Culture - Preliminary Blood - Peripheral Venous NO GROWTH OBTAINED AFTER 48 HOURS, INCUBATION TO CONTINUE FOR 3 DAYS. 12/11/17 08:15 Viral Culture - Preliminary Trachea Insertion Site CXR: large right effusion / opacification Echo 12/11/17-moderately reduce LV systolic function, no pericardial effusion, no sig valvular abnormalities noted. ASSESSMENT/PLAN: 62 year old man h/o COPD, HCV with varices, seizure disorder, HTN, polysubstance abuse, lymphoma, admitted with AMS, fever, sob, chest pain, neutropenic septic shock, respiratory failure requiring intubation. # ID - Neutropenic septic shock -PNA * on broad spectrum abx meropenem/vanco/ levaquin /voriconazol/ * hold vaco as trop is 37 , goal between 15 and 20 # Pulm -Acute respiratory failure -PNA -right side effusion -possible ARDS -respiratory acidosis -R pleural effusion -copd * on acisted mechanical vent * Fio2 100, peak flow 60 , PEEP 8 , * continue broad spectrum abx * CT chest when stable * not candidate for paracentesis due to low Plt and septic shock # Cardiology -PSVT-brief episodes, otherwise sinus tach - hypotension in term od septic shock * Echo with normal EF, dont suspect CHF * monitor on tele * can not treat medically in term of septic shock * cont fluids, pressors and maintain MAP> 65 * once stable and continue PSVT we can start low dose BB * Dr Aleman recommendation appreciated # Heme - marginal cell lymphoma S/P rittux -pancytopenia chemo vs ongoing disease Bone marrow -coagulopathy , INR of 2 * was treated at [facility] with Dr Allan , called him and left voice mail , will try to reatch out to him tomorrow * On RIyux last treatment monday before admission * Dr Valera recommendation appreciated * neupogen support- to be continued * On antibiotics per ID- meropenem/vanco/vori/levaquin * Vit K 10mg IVPB. * Platelets transfusion to maintain above 20K if no bleeding * check parameters in the pm * started on granix # Nephro -CHERYL due to septic shock with possible renal ischemia - sever acidemia : acute respiratory and metabolic acidosis : cont Bicarb drip -renal doses all meds - LDH and uric acid # GI * NPO * Famotidine proph * Hepc with varices , f/u hep panel # Neuro * intubated sedated , unresponsive on pressors and versid * poly substance abuse on methadon * schisoaffective disorder # FEN * F: no standing fluids , sodium bicarb with d5w * E: hyponatremia 128 , repeat bmp in am * N: NPO # Proph * DVTS: SCDS B/L * GI: famotidine IV # Dispo * continue to monitor in ICU * Full code * poor prognosis * contact psychologist social to find family contact for the patient , will reach out to them tomorrow Visit type - Emergency Visit Emergency Visit: Yes ED Registration Date: 12/10/17 Care time: The patient presented to the Emergency Department on the above date and was hospitalized for further evaluation of their emergent condition. - New Patient This patient is new to me today: No - Critical Care Critical Care patient: Yes Total Critical Care Time (in minutes): 45 Critical Care Statement: The care of this patient involved high complexity decision making to prevent further life threatening deterioration of the patient 's condition and/or to evaluate & treat vital organ system(s) failure or risk of failure.
[2017-12-12] MEDS: VASOPRESSIN 50 UNITS in SODIUM CHLORIDE 97.5 ML IVPB SCH ×2 (14:37→16:00)
[2017-12-12] MEDS ORDERED: BENZOIN/ALOE VERA/STORAX/TOLU 58 ML BOTTLE ONE (14:39)
[2017-12-12 15:24] LABS: EOS % 0.4 % (0-4.5); HEMATOCRIT 23.8 % (35.4-49); HEMOGLOBIN 7.3 GM/dL (11.7-16.9); LYMPH % 29.2 % (8-40); MCH 25.3 pg (25.7-33.7); MCHC 30.9 g/dl (32.0-35.9); MEAN CELL VOLUME 81.8 fl (80-96); MEAN PLT VOLUME 8.3 fl (7.5-11.1); MONO % 41.8 % (3.8-10.2); NEUT % 26.6 % (42.8-82.8); RBC 2.91 M/mm3 (4.00-5.60); RDW 18.4 % (11.9-15.9)
[2017-12-12 15:31] LABS: PLATELET COUNT 26 K/MM3 (134-434); WHITE BLOOD COUNT 1.8 K/mm3 (4.0-10.0)
--- NOTE | 2017-12-12 15:42 | PN ---
Progress Note, Physician Chief Complaint: SEDATED INTUBATED UNRESPONSIVE SEDATED - Current Medication List Current Medications: Active Medications Norepinephrine Bitartrate 8, (000 mcg/ Dextrose) 500 mls @ 18.75 mls/hr IV TITR [facility]; Protocol Last Admin: 12/12/17 14:15 Dose: Not Given Vasopressin 50 units/ Sodium (Chloride) 100 mls @ 4.8 mls/hr IVPB [facility]; Protocol Last Admin: 12/12/17 14:37 Dose: 3 units/hr, 6 mls/hr Meropenem 1 gm/ Dextrose 100 mls @ 200 mls/hr IVPB BID@0200,1400 [facility] Last Admin: 12/12/17 13:12 Dose: 200 mls/hr Levofloxacin (Levaquin 250 Mg Premixed Ivpb -) 250 mg in 50 mls @ 50 mls/hr IVPB DAILY [facility] Last Admin: 12/12/17 09:00 Dose: 50 mls/hr Famotidine/Sodium Chloride (Pepcid 20 Mg Premixed Ivpb -) 20 mg in 50 mls @ 100 mls/hr IVPB BID [facility] Last Admin: 12/12/17 09:00 Dose: 100 mls/hr Sodium Bicarbonate 150 meq/ (Dextrose) 1,150 mls @ 100 mls/hr IV Q11H [facility] Last Admin: 12/12/17 12:30 Dose: 100 mls/hr Midazolam HCl 100 mg/ Sodium (Chloride) 100 mls @ 2 mls/hr IVPB TITR [facility]; Protocol Last Admin: 12/12/17 13:10 Dose: 2 mg/hr, 2 mls/hr Voriconazole 400 mg/ Dextrose 290 mls @ 193.333 mls/hr IVPB BID@0300,1500 [facility] Last Admin: 12/12/17 15:11 Dose: 193.333 mls/hr Tbo-Filgrastim (Granix -) 300 mcg SQ DAILY [facility] Last Admin: 12/12/17 10:15 Dose: 300 mcg - Objective Vital Signs: Vital Signs Temperature 98.7 F 12/12/17 14:00 Pulse Rate 104 H 12/12/17 14:37 Respiratory Rate 28 H 12/12/17 14:54 Blood Pressure 123/70 12/12/17 14:37 O2 Sat by Pulse Oximetry (%) 99 12/12/17 08:28 Constitutional: Yes: Mild Distress Cardiovascular: Yes: Tachycardia Respiratory: Yes: Mechanically Ventilated, Poor Air Entry Gastrointestinal: Yes: Distention Genitourinary: Yes: Mon Present Musculoskeletal: Yes: Muscle Weakness Edema: Yes Labs: CBC, BMP 12/12/17 14:30 INR, PTT INR 2.33 (0.82-1.09) H D 12/12/17 10:10 Fibrinogen > 500.0 mg/dL (238-498) H 12/12/17 10:10 Problem List - Problems (1) Lymphoma Code(s): C85.90 - NON-HODGKIN LYMPHOMA, UNSPECIFIED, UNSPECIFIED SITE (2) Acute kidney failure Code(s): N17.9 - ACUTE KIDNEY FAILURE, UNSPECIFIED (3) Neutropenia Code(s): D70.9 - NEUTROPENIA, UNSPECIFIED Qualifiers: Neutropenia type: secondary to cancer chemotherapy Qualified Code(s): D70.1 - Agranulocytosis secondary to cancer chemotherapy; T45.1X5A - Adverse effect of antineoplastic and immunosuppressive drugs, initial encounter (4) Pneumonia Code(s): J18.9 - PNEUMONIA, UNSPECIFIED ORGANISM Qualifiers: Pneumonia type: due to unspecified organism Laterality: right Lung location: upper lobe of lung Qualified Code(s): J18.1 - Lobar pneumonia, unspecified organism (5) Sepsis Code(s): A41.9 - SEPSIS, UNSPECIFIED ORGANISM Qualifiers: Sepsis type: sepsis due to unspecified organism Qualified Code(s): A41.9 - Sepsis, unspecified organism (6) Septic shock Code(s): A41.9 - SEPSIS, UNSPECIFIED ORGANISM; R65.21 - SEVERE SEPSIS WITH SEPTIC SHOCK (7) HTN (hypertension) Code(s): I10 - ESSENTIAL (PRIMARY) HYPERTENSION Qualifiers: Hypertension type: essential hypertension Qualified Code(s): I10 - Essential (primary) hypertension (8) Hepatitis C Code(s): B19.20 - UNSPECIFIED VIRAL HEPATITIS C WITHOUT HEPATIC COMA Qualifiers: Viral hepatitis chronicity: chronic Hepatic coma status: without hepatic coma Qualified Code(s): B18.2 - Chronic viral hepatitis C Assessment/Plan INTUBATED RESP SUPPORT ACUTE PNA IV ABX RENAL FAILURE IVF/NEPHROLOGY EVAL DVT PROPHYLAXIS ID AND ONCOLOGY F/U ICU TEAM CONSULT APPRECIATED
[2017-12-12 15:59] LABS: ALBUMIN 1.6 g/dl (3.4-5.0); ALK PHOS 73 U/L (45-117); ANION GAP 20 (8-16); BILIRUBIN,TOTAL 1.7 mg/dL (0.2-1.0); BLOOD UREA NITROGEN 47 mg/dL (7-18); CHLORIDE 83 mmol/L (98-107); CO2 23 mmol/L (21-32); CREATININE 3.2 mg/dL (0.7-1.3); GLUCOSE,RANDOM 104 mg/dL (74-106); MAGNESIUM 1.8 mg/dL (1.8-2.4); POTASSIUM 4.3 mmol/L (3.5-5.1); SGPT/ALT 357 U/L (12-78); SODIUM 126 mmol/L (136-145)
[2017-12-12 16:21] LABS: SGOT/AST 512 U/L (15-37)
[2017-12-12 16:22] LABS: CALCIUM 6.2 mg/dL (8.5-10.1)
[2017-12-12 16:40] VITALS: BMI 37.2
[2017-12-12 16:44] LABS: INR 2.03 (0.82-1.09)
[2017-12-12 16:45] LABS: FIBRINOGEN > 500.0 mg/dL (238-498)
[2017-12-12 16:47] LABS: ACTIVATED PTT 33.2 SECONDS (25.2-36.5)
[2017-12-12 18:26] LABS: PLATELET ESTIMATE DECREASED
[2017-12-12 22:03] LABS: BASO % 0.1 % (0-2.0); EOS % 0.2 % (0-4.5); HEMATOCRIT 23.2 % (35.4-49); LYMPH % 28.8 % (8-40); MCH 25.6 pg (25.7-33.7); MCHC 31.7 g/dl (32.0-35.9); MEAN CELL VOLUME 80.6 fl (80-96); MEAN PLT VOLUME 10.1 fl (7.5-11.1); MONO % 43.8 % (3.8-10.2); NEUT % 27.1 % (42.8-82.8); RBC 2.88 M/mm3 (4.00-5.60)
[2017-12-12 22:08] LABS: WHITE BLOOD COUNT 1.5 K/mm3 (4.0-10.0)
[2017-12-12 22:09] LABS: HEMOGLOBIN 7.4 GM/dL (11.7-16.9); PLATELET COUNT 12 K/MM3 (134-434)
[2017-12-12 22:16] LABS: INR 2.11 (0.82-1.09)
[2017-12-12 22:17] LABS: FIBRINOGEN > 500.0 mg/dL (238-498)
[2017-12-12 22:30] LABS: ANION GAP 17 (8-16); BLOOD UREA NITROGEN 50 mg/dL (7-18); CHLORIDE 83 mmol/L (98-107); CO2 25 mmol/L (21-32); CREATININE 3.6 mg/dL (0.7-1.3); GLUCOSE,RANDOM 58 mg/dL (74-106); LDH 683 U/L (87-241); POTASSIUM 4.4 mmol/L (3.5-5.1); SODIUM 125 mmol/L (136-145)
[2017-12-12 22:36] LABS: CALCIUM 6.2 mg/dL (8.5-10.1)
[2017-12-12] MEDS ORDERED: DEXTROSE 50%-WATER 25 GM/50 ML DISP.SYRIN IVPUSH STA (22:41)
[2017-12-12] MEDS ORDERED: DEXTROSE 50%-WATER - 25 GM/50 ML VIAL ONE (22:59)
[2017-12-12 23:24] LABS: PLATELET ESTIMATE DECREASED
[2017-12-13] MEDS: NOREPINEPHRINE BITARTRATE 8,000 MCG in SODIUM CHLORIDE 0.45% 992 ML IV SCH ×2 (00:30→20:34)
[2017-12-13] MEDS ORDERED: NOREPINEPHRINE BITARTRATE 4 MG/4 ML ML IV ONE (01:10)
[2017-12-13] MEDS: NOREPINEPHRINE BITARTRATE 16,000 MCG in SODIUM CHLORIDE 0.45% 984 ML IV SCH ×2 (01:16→13:33)
[2017-12-13] MEDS ORDERED: PT OWN MED DRAWER 7, Y5N ONE ×3 (01:18→12:32)
[2017-12-13] MEDS: MEROPENEM 1 GM in DEXTROSE 5%-WATER - 100 ML IVPB SCH ×2 (01:19→13:03)
[2017-12-13] MEDS: VORICONAZOLE IVPB SCH ×2 (02:19→14:00)
[2017-12-13] MEDS: WATER IVPB SCH ×2 (02:19→14:00)
[2017-12-13] MEDS: DEXTROSE 5% IVPB SCH ×2 (02:19→14:00)
[2017-12-13 05:48] LABS: BASO % 0.8 % (0-2.0); EOS % 0.3 % (0-4.5); LYMPH % 27.8 % (8-40); MCH 25.6 pg (25.7-33.7); MCHC 30.8 g/dl (32.0-35.9); MEAN CELL VOLUME 83.3 fl (80-96); MEAN PLT VOLUME 10.2 fl (7.5-11.1); NEUT % 19.1 % (42.8-82.8); RBC 2.64 M/mm3 (4.00-5.60); RDW 18.8 % (11.9-15.9)
[2017-12-13] MEDS ORDERED: VASOPRESSIN 20 UNITS/ML VIAL IV ONE ×3 (05:54→23:50)
[2017-12-13] MEDS: VASOPRESSIN 50 UNITS in SODIUM CHLORIDE 97.5 ML IVPB SCH ×3 (06:03→16:00)
[2017-12-13 06:08] LABS: HEMOGLOBIN 6.8 GM/dL (11.7-16.9); PLATELET COUNT 12 K/MM3 (134-434)
[2017-12-13 06:18] LABS: CHLORIDE 80 mmol/L (98-107); POTASSIUM 4.9 mmol/L (3.5-5.1); SODIUM 125 mmol/L (136-145)
[2017-12-13 06:21] LABS: INR 2.09 (0.82-1.09); PROTHROMBIN TIME (PATIENT) 23.6 SEC (9.7-13.0)
[2017-12-13 06:24] LABS: ACTIVATED PTT 37.2 SECONDS (25.2-36.5); ALBUMIN 1.5 g/dl (3.4-5.0); ALK PHOS 95 U/L (45-117); ANION GAP 24 (8-16); BILIRUBIN,TOTAL 2.1 mg/dL (0.2-1.0); BLOOD UREA NITROGEN 52 mg/dL (7-18); CO2 21 mmol/L (21-32); CREATININE 3.9 mg/dL (0.7-1.3); MAGNESIUM 2.1 mg/dL (1.8-2.4); SGPT/ALT 384 U/L (12-78); TOT PROT 3.6 g/dl (6.4-8.2)
[2017-12-13 06:37] LABS: GLUCOSE,RANDOM 21 mg/dL (74-106); SGOT/AST 554 U/L (15-37)
[2017-12-13] MEDS ORDERED: DEXTROSE 50%-WATER 25 GM/50 ML DISP.SYRIN ONE ×4 (06:38→21:37)
--- NOTE | 2017-12-13 06:39 | PN ---
Progress Note, Physician Chief Complaint: ID Already critical situation for patient seens worse today with increasing pressor needs and persistent fever despite multiple antibiotics NO clear diagnosis for sepsis and his evaluation limited by his critical status. finding of elevated LFTs Meropenem Levofloxacin Voriconazole - Current Medication List Current Medications: Active Medications Vasopressin 50 units/ Sodium (Chloride) 100 mls @ 4.8 mls/hr IVPB [facility]; Protocol Last Admin: 12/13/17 06:03 Dose: 4 units/hr, 8 mls/hr Meropenem 1 gm/ Dextrose 100 mls @ 200 mls/hr IVPB BID@0200,1400 [facility] Last Admin: 12/13/17 01:19 Dose: 200 mls/hr Levofloxacin (Levaquin 250 Mg Premixed Ivpb -) 250 mg in 50 mls @ 50 mls/hr IVPB DAILY [facility] Last Admin: 12/12/17 09:00 Dose: 50 mls/hr Famotidine/Sodium Chloride (Pepcid 20 Mg Premixed Ivpb -) 20 mg in 50 mls @ 100 mls/hr IVPB BID [facility] Last Admin: 12/12/17 21:52 Dose: 100 mls/hr Sodium Bicarbonate 150 meq/ (Dextrose) 1,150 mls @ 100 mls/hr IV Q11H [facility] Last Admin: 12/12/17 21:52 Dose: 100 mls/hr Midazolam HCl 100 mg/ Sodium (Chloride) 100 mls @ 2 mls/hr IVPB TITR [facility]; Protocol Last Admin: 12/12/17 13:10 Dose: 2 mg/hr, 2 mls/hr Voriconazole 400 mg/ Dextrose 290 mls @ 193.333 mls/hr IVPB BID@0300,1500 [facility] Last Admin: 12/13/17 02:19 Dose: 193.333 mls/hr Norepinephrine Bitartrate 16, (000 mcg/ Sodium Chloride) 1,000 mls @ 18.75 mls/ hr IV TITR [facility]; Protocol Last Admin: 12/13/17 01:16 Dose: 22 mcg/min, 82.5 mls/hr Tbo-Filgrastim (Granix -) 300 mcg SQ DAILY [facility] Last Admin: 12/12/17 10:15 Dose: 300 mcg - Objective Vital Signs: Vital Signs Temperature 100 F H 12/13/17 06:00 Pulse Rate 108 H 12/13/17 06:03 Respiratory Rate 28 H 12/13/17 06:00 Blood Pressure 114/67 12/13/17 06:03 O2 Sat by Pulse Oximetry (%) 99 12/12/17 20:55 Constitutional: Yes: Other (Intubated) Cardiovascular: Yes: Tachycardia, S1, S2. No: Murmur Respiratory: Yes: WNL, Regular, CTA Bilaterally. No: Rales, Rhonchi Gastrointestinal: Yes: WNL, Normal Bowel Sounds, Soft. No: Tenderness, Tenderness, Rebound Edema: Yes Labs: CBC, BMP 12/13/17 05:30 INR, PTT INR 2.09 (0.82-1.09) H 12/13/17 05:30 Fibrinogen 504.0 mg/dL (238-498) H 12/13/17 05:30 Assessment/Plan Microbiology 12/10/17 14:45 Sputum - Endotrachea Suction/Ventilator Gram Stain - Final 12/10/17 09:05 Urine For Antigen Detection Legionella Antigen - Final 12/10/17 09:05 Urine For Antigen Detection Streptococcus pneumoniae Antigen (M - Final 12/11/17 08:15 Trachea Insertion Site Viral Culture - Preliminary 12/10/17 14:45 Sputum - Endotrachea Suction/Ventilator Sputum Culture - Preliminary NORMAL RESPIRATORY [place] 12/10/17 00:05 Urine - Urine Clean Catch Urine Culture - Preliminary Staphylococcus Coagulase Neg 12/09/17 23:50 Blood - Peripheral Venous Blood Culture - Preliminary NO GROWTH OBTAINED AFTER 72 HOURS, INCUBATION TO CONTINUE FOR 2 DAYS. 12/09/17 23:50 Blood - Peripheral Venous Blood Culture - Preliminary NO GROWTH OBTAINED AFTER 72 HOURS, INCUBATION TO CONTINUE FOR 2 DAYS. Laboratory Tests 12/10/17 12/12/17 12/12/17 14:35 06:00 21:40 WBC Plt Count INR Oxygen Flow Rate 100% Sodium 125 L Potassium 4.4 BUN 50 H Aspergillus Antibody Pending Beta-(1,3)-D-Glucan Pending 12/13/17 12/13/17 05:30 05:30 WBC 3.0 L D Plt Count 12 L* INR 2.09 H Oxygen Flow Rate Sodium Potassium BUN Aspergillus Antibody Beta-(1,3)-D-Glucan Assessment Mantle cell cancer lymphoma with neutropenic sepsis fulminant cource in this immunocompromised patient. To date his routine cultures are no growth nondiagnostic. Note his hyponatremia and hypotension raises ? of adrenal insufficiency Agree with pulmonary get cortisol level and give steroids hydrocortisone. If he had adrenalitis and just speculating here CMV infection a consideration along with AFB disease. He has a pleural effusion unable to do thoracentesis . Cryptococcus in this setting certainly in the differential diagnosis. Voriconazole would not treat Crypt but will treat invasive Aspergillosis Plan Continue current antimicrobials Send Cryptococcal antigen Should sent CMV serology with PCR quantitiative Sputums for AFB x 3 over 24 hours Add Solucortef 100mg tid Add Ganclovir in salvage effort Critical care time spent time 40 minutes Jer WATERMAN
[2017-12-13] MEDS ORDERED: DEXTROSE 50%-WATER 25 GM/50 ML DISP.SYRIN IVPUSH ONE ×3 (06:47→09:26)
[2017-12-13] MEDS: SODIUM BICARBONATE 8.4% - 150 MEQ in DEXTROSE 5%-WATER - 1,000 ML IV SCH ×3 (08:00→20:34)
[2017-12-13 08:24] LABS: ARTERIAL BLD GAS O2 SATURATION 31.4 % (90-98.9); ARTERIAL BLOOD GAS BASE EXCESS -14.1 meq/l (-2-2); ARTERIAL BLOOD GAS pH 6.94 (7.35-7.45)
[2017-12-13 08:30] LABS: ALLENS TEST POSITIVE
[2017-12-13 08:33] LABS: ARTERIAL BLOOD GAS PCO2 84.5 mmHg (35-45); ARTERIAL BLOOD GAS PO2 30.5 mmHg (80-100)
[2017-12-13] MEDS: TBO-FILGRASTIM 300 MCG/0.5 ML DISP.SYRINGE SQ SCH (09:11)
[2017-12-13] MEDS: FAMOTIDINE 20 MG/50 ML IVPB 20 MG/50 ML MG IVPB SCH ×2 (09:11→21:55)
[2017-12-13] MEDS: HYDROCORTISONE SOD SUCCINATE 100 MG/2 ML VIAL IVPB SCH ×2 (09:11→17:21)
[2017-12-13] MEDS ORDERED: DEXTROSE 10%-WATER - 1,000 ML IV SCH ×2 (09:30→15:41)
[2017-12-13] MEDS ORDERED: WATER IVPB SCH (10:00)
[2017-12-13] MEDS ORDERED: DEXTROSE 5% IVPB SCH (10:00)
[2017-12-13] MEDS ORDERED: GANCICLOVIR IVPB SCH (10:00)
--- NOTE | 2017-12-13 10:28 | PN ---
Progress Note, Physician Chief Complaint: The patient seen in the ICU. The clinical condition continues to get worse. Profound hypotension , on high dose pressors. Oliguric, with worsening azotemia and acidosis. Severe pancytopenia....getting PRBC transfusion and platelets transfusion. Multiple Abx per ID services. - Current Medication List Current Medications: Active Medications Hydrocortisone Sodium Succinate (Solu-Cortef -) 100 mg IVPB Q8H-IV [facility] Last Admin: 12/13/17 09:11 Dose: 100 mg Vasopressin 50 units/ Sodium (Chloride) 100 mls @ 4.8 mls/hr IVPB ASDIR [facility]; Protocol Last Admin: 12/13/17 06:03 Dose: 4 units/hr, 8 mls/hr Meropenem 1 gm/ Dextrose 100 mls @ 200 mls/hr IVPB BID@0200,1400 [facility] Last Admin: 12/13/17 01:19 Dose: 200 mls/hr Levofloxacin (Levaquin 250 Mg Premixed Ivpb -) 250 mg in 50 mls @ 50 mls/hr IVPB DAILY [facility] Last Admin: 12/13/17 09:11 Dose: 50 mls/hr Famotidine/Sodium Chloride (Pepcid 20 Mg Premixed Ivpb -) 20 mg in 50 mls @ 100 mls/hr IVPB BID [facility] Last Admin: 12/13/17 09:11 Dose: 100 mls/hr Sodium Bicarbonate 150 meq/ (Dextrose) 1,150 mls @ 100 mls/hr IV Q11H [facility] Last Admin: 12/13/17 08:00 Dose: Not Given Midazolam HCl 100 mg/ Sodium (Chloride) 100 mls @ 2 mls/hr IVPB TITR [facility]; Protocol Last Admin: 12/12/17 13:10 Dose: 2 mg/hr, 2 mls/hr Voriconazole 400 mg/ Dextrose 290 mls @ 193.333 mls/hr IVPB BID@0300,1500 [facility] Last Admin: 12/13/17 02:19 Dose: 193.333 mls/hr Norepinephrine Bitartrate 16, (000 mcg/ Sodium Chloride) 1,000 mls @ 18.75 mls/ hr IV TITR [facility]; Protocol Last Titration: 12/13/17 10:12 Dose: 20 mcg/min, 75 mls/hr Ganciclovir 310 mg/ Dextrose 100 mls @ 100 mls/hr IVPB Q24H [facility] Last Admin: 12/13/17 09:13 Dose: 100 mls/hr Dextrose (D10w -) 1,000 mls @ 42 mls/hr IV ASDIR [facility] Last Admin: 12/13/17 09:44 Dose: 42 mls/hr Tbo-Filgrastim (Granix -) 300 mcg SQ DAILY [facility] Last Admin: 12/13/17 09:11 Dose: 300 mcg - Objective Vital Signs: Vital Signs Temperature 98.1 F 12/13/17 10:00 Pulse Rate 122 H 12/13/17 10:12 Respiratory Rate 28 H 12/13/17 10:00 Blood Pressure 132/44 12/13/17 10:12 O2 Sat by Pulse Oximetry (%) 99 12/13/17 08:00 Constitutional: Yes: Pallor Cardiovascular: Yes: Tachycardia, Pulse Irregular, S1, S2 Respiratory: Yes: Diminished, Poor Air Entry, Rhonchi Gastrointestinal: Yes: Abdomen, Obese, Distention (No Bowel sounds heard.) Genitourinary: Yes: Mon Present, Oliguria. No: CVA Tenderness - Left Extremities: Yes: Cool, Cyanosis, Delayed Capillary Refill Edema: Yes (generalized) Neurological: Yes: Unresponsive Labs: CBC, BMP 12/13/17 05:30 12/13/17 08:20 INR, PTT INR 2.09 (0.82-1.09) H 12/13/17 05:30 Fibrinogen 504.0 mg/dL (238-498) H 12/13/17 05:30 Problem List - Problems (1) Acute kidney failure Code(s): N17.9 - ACUTE KIDNEY FAILURE, UNSPECIFIED (2) Septic shock Code(s): A41.9 - SEPSIS, UNSPECIFIED ORGANISM; R65.21 - SEVERE SEPSIS WITH SEPTIC SHOCK (3) Neutropenia Code(s): D70.9 - NEUTROPENIA, UNSPECIFIED Qualifiers: Neutropenia type: secondary to cancer chemotherapy Qualified Code(s): D70.1 - Agranulocytosis secondary to cancer chemotherapy; T45.1X5A - Adverse effect of antineoplastic and immunosuppressive drugs, initial encounter (4) Pneumonia Code(s): J18.9 - PNEUMONIA, UNSPECIFIED ORGANISM Qualifiers: Pneumonia type: due to unspecified organism Laterality: right Lung location: upper lobe of lung Qualified Code(s): J18.1 - Lobar pneumonia, unspecified organism (5) Sepsis Code(s): A41.9 - SEPSIS, UNSPECIFIED ORGANISM Qualifiers: Sepsis type: sepsis due to unspecified organism Qualified Code(s): A41.9 - Sepsis, unspecified organism (6) Anemia Code(s): D64.9 - ANEMIA, UNSPECIFIED (7) Cocaine dependence Code(s): F14.20 - COCAINE DEPENDENCE, UNCOMPLICATED (8) Insomnia Code(s): G47.00 - INSOMNIA, UNSPECIFIED (9) Nicotine dependence Code(s): F17.200 - NICOTINE DEPENDENCE, UNSPECIFIED, UNCOMPLICATED (10) Opioid dependence on agonist therapy Code(s): F11.20 - OPIOID DEPENDENCE, UNCOMPLICATED (11) Pancytopenia Code(s): D61.818 - OTHER PANCYTOPENIA (12) Schizoaffective disorder Code(s): F25.9 - SCHIZOAFFECTIVE DISORDER, UNSPECIFIED (13) Asthma Code(s): J45.909 - UNSPECIFIED ASTHMA, UNCOMPLICATED (14) GERD (gastroesophageal reflux disease) Code(s): K21.9 - GASTRO-ESOPHAGEAL REFLUX DISEASE WITHOUT ESOPHAGITIS Qualifiers: Esophagitis presence: without esophagitis Qualified Code(s): K21.9 - Gastro -esophageal reflux disease without esophagitis (15) HTN (hypertension) Code(s): I10 - ESSENTIAL (PRIMARY) HYPERTENSION Qualifiers: Hypertension type: essential hypertension Qualified Code(s): I10 - Essential (primary) hypertension (16) Hepatitis C Code(s): B19.20 - UNSPECIFIED VIRAL HEPATITIS C WITHOUT HEPATIC COMA Qualifiers: Viral hepatitis chronicity: chronic Hepatic coma status: without hepatic coma Qualified Code(s): B18.2 - Chronic viral hepatitis C Assessment/Plan This is an extremely ille, 62yo M with PMH COPD, HTN, schizoaffective disorder, seizure, HCV, lymphoma on rituximab and continuous polysubstance abuse admitted with h/o chest pain. Septic shock and Neutropenia : On Levophed and Vasopressin. Sepsis: On Multiple antibiotics per ID services. Profound thrombocytopenia: s/p Platelet transfusion. Acute Kidney failure: Initiated by the sepsis and hypotension, and now maintained by the renal hypoperfusion and possible renal ischemia. . Severe acidemia: A combination of Acute Metabolic ( High AG) and Acute respiratory acidosis. Will continue Bicarb infusion. It is likely that the patient has a concurrent adrenal insufficiency, even though its overt manifestations are masked by other co-existing problems. Over all prognosis extremely guarded at this point. Will continue aggressive antibiotic, pressor and IV fluid support. PRBC and Platelet transfusion. Stress doses of Steroids. prognosis: Poor Reyna Linares MD
--- NOTE | 2017-12-13 11:05 | PN ---
Physical Exam: SUBJECTIVE: Patient seen and examined in ICU at bed side. intubated sedated , on levofed 25 mc and vasopressin 4 units , and becarb drip @ 100 on mechanical assisted ventilation with fio2 100% , PEEP 8 , peak flow 60 , worsening ABG,cecreased urine out put , worsening , worsening platelets , worsening coagulopathic. OBJECTIVE: Vital Signs Period Temp Pulse Resp BP Sys/Sanches Pulse Ox Last 24 Hr 97.9 F-101 F 100-122 26-28 88-132/41-71 96-99 GENERAL: sedated intubated , unresponsive HEAD: Normal with no signs of trauma. EYES: pin point pupils ENT: dry mucous membranes. NECK: Trachea midline, supple. LUNGS: decrease breath sounds at the bases HEART: RRR, S1, S2 without murmur, rub or gallop. ABDOMEN: SoftND/NT, +BS , no guarding, no rebound, EXTREMITIES: 2+ pulses, cold to touch , no edema. NEUROLOGICAL: intubated sedated PSYCH: Normal mood, normal affect. SKIN: Warm, dry, B/L feet are pale and cold due to vasopressors Microbiology 12/13/17 08:45 Sputum - Endotrachea Suction/Ventilator AFB Smear Concentration - Preliminary 12/13/17 08:45 Sputum - Endotrachea Suction/Ventilator Mycobacterial Culture - Preliminary 12/09/17 23:50 Blood - Peripheral Venous Blood Culture - Preliminary NO GROWTH OBTAINED AFTER 72 HOURS, INCUBATION TO CONTINUE FOR 2 DAYS. 12/09/17 23:50 Blood - Peripheral Venous Blood Culture - Preliminary NO GROWTH OBTAINED AFTER 72 HOURS, INCUBATION TO CONTINUE FOR 2 DAYS. 12/10/17 14:45 Sputum - Endotrachea Suction/Ventilator Gram Stain - Final 12/10/17 14:45 Sputum - Endotrachea Suction/Ventilator Sputum Culture - Preliminary NORMAL RESPIRATORY CATAL[place] 12/10/17 00:05 Urine - Urine Clean Catch Urine Culture - Preliminary Staphylococcus Coagulase Neg 12/11/17 08:15 Trachea Insertion Site Viral Culture - Preliminary 12/10/17 09:05 Urine For Antigen Detection Legionella Antigen - Final 12/10/17 09:05 Urine For Antigen Detection Streptococcus pneumoniae Antigen (M - Final CBC, BMP 12/13/17 05:30 CXR: large right effusion / opacification Echo 12/11/17-moderately reduce LV systolic function, no pericardial effusion, no sig valvular abnormalities noted. ASSESSMENT/PLAN: 62 year old man h/o COPD, HCV with varices, seizure disorder, HTN, polysubstance abuse, lymphoma, admitted with AMS, fever, sob, chest pain, neutropenic septic shock, respiratory failure requiring intubation. # ID - Neutropenic septic shock -PNA * on broad spectrum abx meropenem/vanco/ levaquin /voriconazol/ * hold vaco as trop is 37 , goal between 15 and 20 * start on Valcyclovir to cover possible CMV , send cmv serologies * AFP X3 over 24 hour, Quantiferon * send cryptococcal antigen * cont Sulocortef # Pulm -Acute respiratory failure -PNA -right side effusion -possible ARDS -respiratory acidosis -R pleural effusion -copd * on acisted mechanical vent * Fio2 100, peak flow 60 , PEEP 8 , * continue broad spectrum abx * CT chest when stable * not candidate for paracentesis due to low Plt and septic shock * stress steroids Sulocortef # Cardiology -PSVT-brief episodes, otherwise sinus tach - hypotension in term od septic shock * Echo with normal EF, dont suspect CHF * monitor on tele * can not treat medically in term of septic shock * cont fluids, pressors and maintain MAP> 65 * once stable and continue PSVT we can start low dose BB * Dr Aleman recommendation appreciated # Heme - marginal cell lymphoma S/P rittux -pancytopenia chemo vs ongoing disease Bone marrow -coagulopathy , INR of 2 * was treated at [facility] with Dr Allan , called him and left voice mail , will try to reatch out to him tomorrow * On RIyux last treatment monday before admission * Dr Valera recommendation appreciated * neupogen support- to be continued * On antibiotics per ID- meropenem/vanco/vori/levaquin * Vit K 10mg IVPB. * Platelets transfusion to maintain above 20K if no bleeding * PRBC X2 to keep Hgb >8 * check parameters in the pm * started on granix * # Nephro -CHERYL due to septic shock with possible renal ischemia - sever acidemia : acute respiratory and metabolic acidosis : cont Bicarb drip -renal doses all meds - LDH and uric acid # GI * NPO * Famotidine proph * Hepc with varices , f/u hep panel # Neuro * intubated sedated , unresponsive on pressors and versid * poly substance abuse on methadon * schisoaffective disorder # FEN * F: no standing fluids , sodium bicarb with d5w * E: hyponatremia 125 , repeat bmp in am * N: NPO # Proph * DVTS: SCDS B/L * GI: famotidine IV # Dispo * continue to monitor in ICU * Full code * poor prognosis * contact director social welfare to find family contact for the patient , will reach out to them tomorrow , * called number on the chart and left a voice mail [phone], * Dr Gómez call his PCP and get the following number [phone] and no answer Visit type - Emergency Visit Emergency Visit: Yes ED Registration Date: 12/10/17 Care time: The patient presented to the Emergency Department on the above date and was hospitalized for further evaluation of their emergent condition. - New Patient This patient is new to me today: No - Critical Care Critical Care patient: Yes Total Critical Care Time (in minutes): 45 Critical Care Statement: The care of this patient involved high complexity decision making to prevent further life threatening deterioration of the patient 's condition and/or to evaluate & treat vital organ system(s) failure or risk of failure.
--- NOTE | 2017-12-13 11:27 | PN ---
Teaching Attending Note Name of Resident: Pete Gauthier ATTENDING PHYSICIAN STATEMENT I saw and evaluated the patient. I reviewed the resident's note and discussed the case with the resident. I agree with the resident's findings and plan as documented. SUBJECTIVE: Pt seen and examined in the ICU. Remains intubated, unresponsive on light sedation. On levophed and vasopressin gtts. Still with severe acidosis despite bicarb. Pancytopenic despite multiple transfusions. Vented on volume assist control with 100% FiO2. Episode of rapid atrial fibrillation this AM. OBJECTIVE: Vital Signs Period Temp Pulse Resp BP Sys/Sanches Pulse Ox Last 24 Hr 97.9 F-101 F 100-122 26-28 69-132/41-71 96-99 Intake & Output 12/10/17 12/11/17 12/12/17 12/13/17 23:59 23:59 23:59 23:59 Intake Total 6493.6 8210.8 6501 3142 Output Total 2100 1050 160 100 Balance 4393.6 7160.8 6341 3042 Weight 107.3 kg 114.901 kg 121.109 kg 124.341 kg Gen: intubated, sedated Heart: tachycardic, regular Lung: bilateral rhonchi Abd: soft, nontender Ext: + edema, cyanotic extremities CBC, BMP 12/13/17 05:30 12/13/17 08:20 Active Medications Hydrocortisone Sodium Succinate (Solu-Cortef -) 100 mg IVPB Q8H-IV [facility] Last Admin: 12/13/17 09:11 Dose: 100 mg Vasopressin 50 units/ Sodium (Chloride) 100 mls @ 4.8 mls/hr IVPB ASDIR [facility]; Protocol Last Titration: 12/13/17 11:03 Dose: 6 units/hr, 12 mls/hr Meropenem 1 gm/ Dextrose 100 mls @ 200 mls/hr IVPB BID@0200,1400 [facility] Last Admin: 12/13/17 01:19 Dose: 200 mls/hr Levofloxacin (Levaquin 250 Mg Premixed Ivpb -) 250 mg in 50 mls @ 50 mls/hr IVPB DAILY [facility] Last Admin: 12/13/17 09:11 Dose: 50 mls/hr Famotidine/Sodium Chloride (Pepcid 20 Mg Premixed Ivpb -) 20 mg in 50 mls @ 100 mls/hr IVPB BID [facility] Last Admin: 12/13/17 09:11 Dose: 100 mls/hr Sodium Bicarbonate 150 meq/ (Dextrose) 1,150 mls @ 100 mls/hr IV Q11H [facility] Last Admin: 12/13/17 08:00 Dose: Not Given Midazolam HCl 100 mg/ Sodium (Chloride) 100 mls @ 2 mls/hr IVPB TITR [facility]; Protocol Last Admin: 12/12/17 13:10 Dose: 2 mg/hr, 2 mls/hr Voriconazole 400 mg/ Dextrose 290 mls @ 193.333 mls/hr IVPB BID@0300,1500 [facility] Last Admin: 12/13/17 02:19 Dose: 193.333 mls/hr Norepinephrine Bitartrate 16, (000 mcg/ Sodium Chloride) 1,000 mls @ 18.75 mls/ hr IV TITR [facility]; Protocol Last Titration: 12/13/17 10:12 Dose: 20 mcg/min, 75 mls/hr Ganciclovir 310 mg/ Dextrose 100 mls @ 100 mls/hr IVPB Q24H [facility] Last Admin: 12/13/17 09:13 Dose: 100 mls/hr Dextrose (D10w -) 1,000 mls @ 42 mls/hr IV ASDIR [facility] Last Admin: 12/13/17 09:44 Dose: 42 mls/hr Tbo-Filgrastim (Granix -) 300 mcg SQ DAILY [facility] Last Admin: 12/13/17 09:11 Dose: 300 mcg ASSESSMENT AND PLAN: Acute Hypoxic Respiratory Failure Pneumonia Neutropenic Septic Shock ARDS Acute Kidney Injury Severe Metabolic Acidosis/Lactic Acidosis LV Systolic/Diastolic Dysfunction Hypoglycemia Mantle Cell Lymphoma - continue antibiotics - f/u cultures - IVF to keep CVP 8-12 - titrate pressors to maintain MAP >65 - bicarb - monitor ABG - monitor urine output, creatinine - continue stress dose steroids - D10 gtt - taper FiO2, PEEP to keep SpO2 >90% - low tidal volume ventilation - continue granix - monitor CBC, coags - transfuse as needed - DVT/GI prophylaxis - prognosis guarded - continue ICU monitoring critical care time spent in reviewing chart, evaluating patient and formulating plan 35 min
--- NOTE | 2017-12-13 11:38 | PN ---
Progress Note, Physician Chief Complaint: intubated sedated still severe distress - Current Medication List Current Medications: Active Medications Hydrocortisone Sodium Succinate (Solu-Cortef -) 100 mg IVPB Q8H-IV [facility] Last Admin: 12/13/17 09:11 Dose: 100 mg Vasopressin 50 units/ Sodium (Chloride) 100 mls @ 4.8 mls/hr IVPB [facility]; Protocol Last Titration: 12/13/17 11:03 Dose: 6 units/hr, 12 mls/hr Meropenem 1 gm/ Dextrose 100 mls @ 200 mls/hr IVPB BID@0200,1400 [facility] Last Admin: 12/13/17 01:19 Dose: 200 mls/hr Levofloxacin (Levaquin 250 Mg Premixed Ivpb -) 250 mg in 50 mls @ 50 mls/hr IVPB DAILY [facility] Last Admin: 12/13/17 09:11 Dose: 50 mls/hr Famotidine/Sodium Chloride (Pepcid 20 Mg Premixed Ivpb -) 20 mg in 50 mls @ 100 mls/hr IVPB BID [facility] Last Admin: 12/13/17 09:11 Dose: 100 mls/hr Sodium Bicarbonate 150 meq/ (Dextrose) 1,150 mls @ 100 mls/hr IV Q11H [facility] Last Admin: 12/13/17 08:00 Dose: Not Given Midazolam HCl 100 mg/ Sodium (Chloride) 100 mls @ 2 mls/hr IVPB TITR [facility]; Protocol Last Admin: 12/12/17 13:10 Dose: 2 mg/hr, 2 mls/hr Voriconazole 400 mg/ Dextrose 290 mls @ 193.333 mls/hr IVPB BID@0300,1500 [facility] Last Admin: 12/13/17 02:19 Dose: 193.333 mls/hr Norepinephrine Bitartrate 16, (000 mcg/ Sodium Chloride) 1,000 mls @ 18.75 mls/ hr IV TITR [facility]; Protocol Last Titration: 12/13/17 10:12 Dose: 20 mcg/min, 75 mls/hr Ganciclovir 310 mg/ Dextrose 100 mls @ 100 mls/hr IVPB Q24H [facility] Last Admin: 12/13/17 09:13 Dose: 100 mls/hr Dextrose (D10w -) 1,000 mls @ 42 mls/hr IV ASDIR [facility] Last Admin: 12/13/17 09:44 Dose: 42 mls/hr Tbo-Filgrastim (Granix -) 300 mcg SQ DAILY [facility] Last Admin: 12/13/17 09:11 Dose: 300 mcg - Objective Vital Signs: Vital Signs Temperature 98.1 F 12/13/17 10:00 Pulse Rate 108 H 12/13/17 11:03 Respiratory Rate 28 H 12/13/17 10:30 Blood Pressure 69/61 12/13/17 11:03 O2 Sat by Pulse Oximetry (%) 99 12/13/17 08:00 Constitutional: Yes: Severe Distress Cardiovascular: Yes: Tachycardia Respiratory: Yes: Diminished, Mechanically Ventilated Gastrointestinal: Yes: Distention Genitourinary: Yes: Mon Present Neurological: Yes: Other Labs: CBC, BMP 12/13/17 05:30 12/13/17 08:20 INR, PTT INR 2.09 (0.82-1.09) H 12/13/17 05:30 Fibrinogen 504.0 mg/dL (238-498) H 12/13/17 05:30 Problem List - Problems (1) Lymphoma Code(s): C85.90 - NON-HODGKIN LYMPHOMA, UNSPECIFIED, UNSPECIFIED SITE (2) Acute kidney failure Code(s): N17.9 - ACUTE KIDNEY FAILURE, UNSPECIFIED (3) Neutropenia Code(s): D70.9 - NEUTROPENIA, UNSPECIFIED Qualifiers: Neutropenia type: secondary to cancer chemotherapy Qualified Code(s): D70.1 - Agranulocytosis secondary to cancer chemotherapy; T45.1X5A - Adverse effect of antineoplastic and immunosuppressive drugs, initial encounter (4) Pneumonia Code(s): J18.9 - PNEUMONIA, UNSPECIFIED ORGANISM Qualifiers: Pneumonia type: due to unspecified organism Laterality: right Lung location: upper lobe of lung Qualified Code(s): J18.1 - Lobar pneumonia, unspecified organism (5) Sepsis Code(s): A41.9 - SEPSIS, UNSPECIFIED ORGANISM Qualifiers: Sepsis type: sepsis due to unspecified organism Qualified Code(s): A41.9 - Sepsis, unspecified organism (6) Septic shock Code(s): A41.9 - SEPSIS, UNSPECIFIED ORGANISM; R65.21 - SEVERE SEPSIS WITH SEPTIC SHOCK (7) HTN (hypertension) Code(s): I10 - ESSENTIAL (PRIMARY) HYPERTENSION Qualifiers: Hypertension type: essential hypertension Qualified Code(s): I10 - Essential (primary) hypertension (8) Hepatitis C Code(s): B19.20 - UNSPECIFIED VIRAL HEPATITIS C WITHOUT HEPATIC COMA Qualifiers: Viral hepatitis chronicity: chronic Hepatic coma status: without hepatic coma Qualified Code(s): B18.2 - Chronic viral hepatitis C Assessment/Plan SPOKE WITH DR LUIS ANGEL ROONEY THE PATIENTS PRIMARY DOCTOR IN THE COMMUNITY. DR ROONEY REVIEWED HIS NOTES AND THEIR ARE NO CLEAR INDICATION OF THE PATIENT'S ADVANCED DIRECTIVE WISHES. AT THIS POINT WILL TREAT A FULL CODE AND FULL OPTIMAL TREATMENT IV ABX 02 SUPPORT DVT PROPHYLAXIS POOR OVERALL QUALITY OF LIFE/PROGNOSIS
[2017-12-13 12:20] LABS: ACANTHOCYTES 2+; ANISOCYTOSIS 2+; MACROCYTOSIS 0; PLATELET ESTIMATE DECREASED; TEAR DROP CELLS 1+
[2017-12-13] MEDS: MIDAZOLAM 100 MG in SODIUM CHLORIDE 100 ML IVPB SCH (13:10)
[2017-12-13 14:50] LABS: EOS % 0.3 % (0-4.5); HEMATOCRIT 23.3 % (35.4-49); HEMOGLOBIN 7.2 GM/dL (11.7-16.9); LYMPH % 82.9 % (8-40); MCH 26.8 pg (25.7-33.7); MCHC 30.8 g/dl (32.0-35.9); MEAN CELL VOLUME 86.8 fl (80-96); MONO % 0.3 % (3.8-10.2); NEUT % 16.5 % (42.8-82.8); RBC 2.68 M/mm3 (4.00-5.60); RDW 17.6 % (11.9-15.9); WHITE BLOOD COUNT 5.9 K/mm3 (4.0-10.0)
[2017-12-13 15:16] LABS: ALBUMIN 1.4 g/dl (3.4-5.0); ANION GAP 29 (8-16); BILIRUBIN,TOTAL 2.5 mg/dL (0.2-1.0); BLOOD UREA NITROGEN 54 mg/dL (7-18); CHLORIDE 81 mmol/L (98-107); CO2 16 mmol/L (21-32); CREATININE 3.8 mg/dL (0.7-1.3); POTASSIUM 5.3 mmol/L (3.5-5.1); SGPT/ALT 393 U/L (12-78); SODIUM 126 mmol/L (136-145); TOT PROT 3.2 g/dl (6.4-8.2)
[2017-12-13 15:20] LABS: ALK PHOS 115 U/L (45-117)
[2017-12-13 15:21] LABS: SGOT/AST 771 U/L (15-37)
[2017-12-13 15:23] LABS: CALCIUM 5.5 mg/dL (8.5-10.1); GLUCOSE,RANDOM 45 mg/dL (74-106)
[2017-12-13] MEDS ORDERED: DEXTROSE 50%-WATER - 25 GM/50 ML VIAL IVPUSH ONE ×2 (15:37→15:40)
[2017-12-13 15:38] LABS: ACANTHOCYTES 3+; ANISOCYTOSIS 3+; MACROCYTOSIS 0; PLATELET ESTIMATE DECREASED
--- NOTE | 2017-12-13 15:40 | PN ---
Progress Note, Physician History of Present Illness: seen and examined today, remains intubated, sedated, on pressors. unresponsive. - Current Medication List Current Medications: Active Medications Hydrocortisone Sodium Succinate (Solu-Cortef -) 100 mg IVPB Q8H-IV [facility] Last Admin: 12/13/17 09:11 Dose: 100 mg Vasopressin 50 units/ Sodium (Chloride) 100 mls @ 4.8 mls/hr IVPB [facility]; Protocol Last Admin: 12/13/17 14:28 Dose: 6 units/hr, 12 mls/hr Meropenem 1 gm/ Dextrose 100 mls @ 200 mls/hr IVPB BID@0200,1400 [facility] Last Admin: 12/13/17 13:03 Dose: 200 mls/hr Levofloxacin (Levaquin 250 Mg Premixed Ivpb -) 250 mg in 50 mls @ 50 mls/hr IVPB DAILY [facility] Last Admin: 12/13/17 09:11 Dose: 50 mls/hr Famotidine/Sodium Chloride (Pepcid 20 Mg Premixed Ivpb -) 20 mg in 50 mls @ 100 mls/hr IVPB BID [facility] Last Admin: 12/13/17 09:11 Dose: 100 mls/hr Sodium Bicarbonate 150 meq/ (Dextrose) 1,150 mls @ 100 mls/hr IV Q11H [facility] Last Admin: 12/13/17 13:31 Dose: 100 mls/hr Midazolam HCl 100 mg/ Sodium (Chloride) 100 mls @ 2 mls/hr IVPB TITR [facility]; Protocol Last Admin: 12/13/17 13:10 Dose: Not Given Voriconazole 400 mg/ Dextrose 290 mls @ 193.333 mls/hr IVPB BID@0300,1500 [facility] Last Admin: 12/13/17 14:00 Dose: 193.333 mls/hr Norepinephrine Bitartrate 16, (000 mcg/ Sodium Chloride) 1,000 mls @ 18.75 mls/ hr IV TITR [facility]; Protocol Last Admin: 12/13/17 13:33 Dose: 23 mcg/min, 86.25 mls/hr Ganciclovir 310 mg/ Dextrose 100 mls @ 100 mls/hr IVPB Q24H [facility] Last Admin: 12/13/17 09:13 Dose: 100 mls/hr Dextrose (D10w -) 1,000 mls @ 42 mls/hr IV ASDIR [facility] Last Admin: 12/13/17 09:44 Dose: 42 mls/hr Tbo-Filgrastim (Granix -) 300 mcg SQ DAILY [facility] Last Admin: 12/13/17 09:11 Dose: 300 mcg - Objective Vital Signs: Vital Signs Temperature 97.8 F 12/13/17 14:00 Pulse Rate 100 H 12/13/17 14:28 Respiratory Rate 28 H 12/13/17 14:50 Blood Pressure 107/77 12/13/17 14:28 O2 Sat by Pulse Oximetry (%) 99 12/13/17 08:00 Constitutional: Yes: Other (unresponsive) Cardiovascular: Yes: Tachycardia, S1, S2. No: Bradycardia, Pulse Irregular, Bruit, JVD, Gallop, Murmur, Rub, S3, S4, Varicosities Respiratory: Yes: Regular, Diminished, Intubated, Mechanically Ventilated. No: Rales, Rhonchi, Wheezes Edema: Yes Neurological: Yes: Unresponsive. No: Alert, Oriented Psychiatric: No: Alert, Oriented Labs: CBC, BMP 12/13/17 14:20 12/13/17 14:20 INR, PTT INR 2.09 (0.82-1.09) H 12/13/17 05:30 Fibrinogen 504.0 mg/dL (238-498) H 12/13/17 05:30 - ....Imaging Chest X-ray: Report Reviewed, Image Reviewed EKG: Report Reviewed, Image Reviewed Other: Report Reviewed, Image Reviewed (tele-sinus tach, brief episodes of likely PSVT) Assessment/Plan 62 year old man h/o COPD, HCV with varices, seizure disorder, HTN, polysubstance abuse, lymphoma, admitted with AMS, fever, sob, chest pain, neutropenic septic shock, respiratory failure requiring intubation. Pt seen and examined today, intubated, sedated, unresponsive. Pt being tx for pneumonia and neutropenic septic shock. History obtained from the chart. Echo 12/11/17-moderately reduce LV systolic function, no pericardial effusion, no sig valvular abnormalities noted. Respiratory failure-neutropenic septic shock, pna, pleural effusion -echo as above moderate LV dysfunction, cardiac enzymes were wnl on admission, does not appear to be ACS -do not suspect significant decompensated CHF at this time, may develop fluid overload due to IRISH, oliguric, requiring IVF hydration with multiple IV infusions -care as per ICU, pressors, abx, vent -can use Lasix prn if fluid overload develops, at discretion of nephrology PSVT-brief episodes, otherwise sinus tach -cannot use standing bblockers or calcium channel christine due to shock requiring pressors -monitor tele -eventually if BP tolerates and if PSVT continues can try low dose bblocker -otherwise if sustained arrhythmias develop can use prn IV meds or trial of reduce levophed dose Overall poor prognosis, no additional cardiac work up is indicated at this time. Please call with any additional questions.
[2017-12-13 15:43] LABS: MEAN PLT VOLUME 10.2 fl (7.5-11.1); PLATELET COUNT 16 K/MM3 (134-434)
--- NOTE | 2017-12-13 18:25 | PN ---
Progress Note (short form) - Note Progress Note: condition unchanged Constitutional: Yes: intubated/sedated HENT: Yes: Atraumatic, Normocephalic Neck: Yes: Supple Cardiovascular: Yes: Tachycardia Respiratory: Intubated Gastrointestinal:ND NT Extremities: Yes: WNL Edema: LLE: 1+, RLE: 1+ Neurological: Yes:sedated Last Vital Signs Last Vital Signs Temp Pulse Resp BP Pulse Ox 98.4 F 99 H 28 H 119/65 99 12/13/17 18:00 12/13/17 18:00 12/13/17 18:00 12/13/17 18:00 12/13/17 08:00 Current Medications Generic Name Dose Route Start Last Admin Trade Name Freq PRN Reason Stop Dose Admin Hydrocortisone Sodium Succinate 100 mg 12/13/17 10:00 12/13/17 17:21 Solu-Cortef - IVPB 100 mg Q8H-IV WALTER Administration Vasopressin 50 units/ Sodium 100 mls @ 4.8 mls/hr 12/10/17 16:00 12/13/17 16: 00 Chloride IVPB Not Given ASDIR WALTER Protocol 2.4 UNITS/HR Meropenem 1 gm/ Dextrose 100 mls @ 200 mls/hr 12/11/17 14:00 12/13/17 13:03 IVPB 200 mls/hr BID@0200,1400 WALTER Administration Levofloxacin 250 mg in 50 mls @ 50 mls/hr 12/11/17 10:00 12/13/17 09:11 Levaquin 250 Mg Premixed Ivpb - IVPB 50 mls/hr DAILY WALTER Administration Famotidine/Sodium Chloride 20 mg in 50 mls @ 100 mls/hr 12/11/17 10:00 09:11 Pepcid 20 Mg Premixed Ivpb - IVPB 100 mls/hr BID WALTER Administration Sodium Bicarbonate 150 meq/ 1,150 mls @ 100 mls/hr 12/11/17 12:00 12/13/17 13 :31 Dextrose IV 100 mls/hr Q11H WALTER Administration Midazolam HCl 100 mg/ Sodium 100 mls @ 2 mls/hr 12/11/17 13:10 12/13/17 13:10 Chloride IVPB Not Given TITR WALTER Protocol 2 MG/HR Voriconazole 400 mg/ Dextrose 290 mls @ 193.333 mls/hr 12/12/17 15:00 14:00 IVPB 193.333 mls/hr BID@[id number],1500 WALTER Administration Norepinephrine Bitartrate 16, 1,000 mls @ 18.75 mls/hr 12/13/17 01:15 13:33 000 mcg/ Sodium Chloride IV 23 mcg/min TITR WALTER 86.25 mls/hr Administration Protocol 5 MCG/MIN Ganciclovir 310 mg/ Dextrose 100 mls @ 100 mls/hr 12/13/17 10:00 12/13/17 09: 13 IVPB 100 mls/hr Q24H WALTER Administration Dextrose 1,000 mls @ 50 mls/hr 12/13/17 15:41 12/13/17 15:45 D10w - IV 50 mls/hr ASDIR WALTER Administration Tbo-Filgrastim 300 mcg 12/10/17 10:00 12/13/17 09:11 Granix - SQ 300 mcg DAILY WALTER Administration CBC, BMP 12/13/17 14:20 12/13/17 14:20 septic shock coagulopathy appears terminal team trying to reach family/NOK per RN continue present care
[2017-12-13] MEDS: DEXTROSE 50%-WATER - 25 GM/50 ML VIAL IVPUSH PRN (21:56)
[2017-12-14] MEDS: DEXTROSE 50%-WATER - 25 GM/50 ML VIAL IVPUSH PRN
[2017-12-14] MEDS: HYDROCORTISONE SOD SUCCINATE 100 MG/2 ML VIAL IVPB SCH (01:45)
[2017-12-14] MEDS: MEROPENEM 1 GM in DEXTROSE 5%-WATER - 100 ML IVPB SCH (01:46)
[2017-12-14] MEDS: NOREPINEPHRINE BITARTRATE 16,000 MCG in SODIUM CHLORIDE 0.45% 984 ML IV SCH (01:46)
[2017-12-14] MEDS ORDERED: SODIUM CHLORIDE 0.9% 1000 ML INFUS.BAG IV ONE (02:26)
[2017-12-14] MEDS ORDERED: DEXTROSE 10%-WATER - 1,000 ML IV SCH (02:41)
[2017-12-14] MEDS ORDERED: DEXTROSE 50%-WATER 25 GM/50 ML DISP.SYRIN IVPUSH ONE (02:42)
[2017-12-14] MEDS: WATER IVPB SCH (02:48)
[2017-12-14] MEDS: DEXTROSE 5% IVPB SCH (02:48)
[2017-12-14] MEDS: VORICONAZOLE IVPB SCH (02:48)
[2017-12-14 04:08] VITALS: TEMP 98
--- NOTE | 2017-12-14 04:33 | RAPID ---
Physical Examination Vital Signs: Vital Signs Temperature 98 F 12/14/17 04:00 Pulse Rate 125 H 12/14/17 04:00 Respiratory Rate 28 H 12/14/17 04:00 Blood Pressure 150/121 12/14/17 04:00 O2 Sat by Pulse Oximetry (%) 99 12/13/17 08:00 Findings/Remarks: -Code 99 was called overhead. On arrival, patient intubated and sedated, found to be bradycardic on monitor to 26. Carotid pulse was felt and dopplerable. Femoral pulses 1+ and thready. -BGM <50 -.5mg atropine pushed -1amp D50 pushed -D5 NS rate increased from 50 to 100 -After administration of the above medications, the patient's heart rate elevated into the 130's. BP 119/94. Pulse maintained throughout. Will monitor. Constitutional: Yes: No Distress, Calm HENT: Yes: Atraumatic, Normocephalic Neck: Yes: Supple, Trachea Midline Cardiovascular: Yes: Bradycardia, S1, S2 Respiratory: Yes: Regular, CTA Bilaterally Peripheral Pulses: Left Femoral: 1+, Right Femoral: 1+ Integumentary: Yes: Other (pale, cyanotic mottled extremities cold to the touch) Labs: CBC, BMP 12/13/17 14:20 12/13/17 14:20 Critical Care Total Critical Care Time (in minutes): 40 Critical Care Statement: The care of this patient involved high complexity decision making to prevent further life threatening deterioration of the patient 's condition and/or to evaluate & treat vital organ system(s) failure or risk of failure.
--- NOTE | 2017-12-14 05:54 | HOSP ---
Physical Examination Vital Signs: Vital Signs Temperature 98 F 12/14/17 04:00 Pulse Rate 125 H 12/14/17 04:00 Respiratory Rate 28 H 12/14/17 04:00 Blood Pressure 150/121 12/14/17 04:00 O2 Sat by Pulse Oximetry (%) 99 12/13/17 08:00 Constitutional: Yes: Well Nourished, Severe Distress Cardiovascular: Yes: Other (asystole) Peripheral Pulses WNL: No Labs: CBC, BMP 12/13/17 14:20 12/13/17 14:20 Hospitalist Encounter Outcome: Code 99 was called overhead at 5:12 AM. On arrival, patient intubated and sedated, found have asystole on monitor. Carotid pulse was not felt. CPR was immediately started. We continue to give Epinephrine, total of 8. The patient remained in asystole and called was stopped at 5:32 Am. On physical examination the patient didn't respond to verbal or physical stymuli. Absent heart of breath sounds. Absent peripheral pulses. Pupils were fixed and dilated, corneal reflex was absent. Th patient was pronounced at 5:32. His friend was called. Visit type - Emergency Visit Emergency Visit: Yes ED Registration Date: 12/10/17 Care time: The patient presented to the Emergency Department on the above date and was hospitalized for further evaluation of their emergent condition. - New Patient This patient is new to me today: Yes Date on this admission: 12/14/17 - Critical Care Critical Care patient: Yes Total Critical Care Time (in minutes): 30 Critical Care Statement: The care of this patient involved high complexity decision making to prevent further life threatening deterioration of the patient 's condition and/or to evaluate & treat vital organ system(s) failure or risk of failure.
--- NOTE | 2017-12-14 05:58 | PN ---
Physical Exam: SUBJECTIVE: Patient seen and examined OBJECTIVE: Vital Signs Period Temp Pulse Resp BP Sys/Sanches Pulse Ox Last 24 Hr 97.8 F-100 F 78-130 25-28 68-150/44-121 99 GENERAL: The patient is awake, alert, and fully oriented, in no acute distress. HEAD: Normal with no signs of trauma. EYES: PERRL, extraocular movements intact, sclera anicteric, conjunctiva clear. No ptosis. ENT: Ears normal, nares patent, oropharynx clear without exudates, moist mucous membranes. NECK: Trachea midline, full range of motion, supple. LUNGS: Breath sounds equal, clear to auscultation bilaterally, no wheezes, no crackles, no accessory muscle use. HEART: Regular rate and rhythm, S1, S2 without murmur, rub or gallop. ABDOMEN: Soft, nontender, nondistended, normoactive bowel sounds, no guarding, no rebound, no hepatosplenomegaly, no masses. EXTREMITIES: 2+ pulses, warm, well-perfused, no edema. NEUROLOGICAL: Cranial nerves II through XII grossly intact. Normal speech, gait not observed. PSYCH: Normal mood, normal affect. SKIN: Warm, dry, normal turgor, no rashes or lesions noted Laboratory Results - last 24 hr 12/10/17 12/12/17 12/13/17 14:35 10:10 00:42 WBC Corrected WBC (auto) RBC Hgb Hct MCV MCH MCHC RDW Plt Count MPV Absolute Neuts (auto) Neutrophils % Neutrophils % (Manual) Band Neutrophils % Lymphocytes % Lymphocytes % (Manual) Monocytes % Monocytes % (Manual) Eosinophils % Eosinophils % (Manual) Basophils % Basophils % (Manual) Myelocytes % (Man) Promyelocytes % (Man) Blast Cells % (Manual) Nucleated RBC % Metamyelocytes Hypochromia Platelet Estimate Platelet Comment Polychromasia Poikilocytosis Anisocytosis Microcytosis Macrocytosis Tear Drop Cells Acanthocytes (Spur) Schistocytes PT with INR INR PTT (Actin FS) Fibrinogen Puncture Site ABG pH ABG pCO2 at Pt Temp ABG pO2 at Pt Temp ABG HCO3 ABG O2 Sat (Measured) ABG O2 Content ABG Base Excess [place] Test O2 Delivery Device Oxygen Flow Rate Vent Mode Vent Rate Mechanical Rate PEEP Pressure Support Vent Sodium Potassium Chloride Carbon Dioxide Anion Gap BUN Creatinine Creat Clearance w eGFR POC Glucometer 54.64332 Random Glucose Calcium Phosphorus Magnesium Total Bilirubin AST ALT Alkaline Phosphatase Total Protein Albumin Random Vancomycin Aspergillus Antibody 0.03 Beta-(1,3)-D-Glucan 282 H Blood Type O NEGATIVE Antibody Screen Negative Crossmatch See Detail 12/13/17 12/13/17 12/13/17 00:48 05:30 05:30 WBC 3.0 L D Corrected WBC (auto) 3.00 RBC 2.64 L Hgb 6.8 L* Hct 22.0 L MCV 83.3 MCH 25.6 L MCHC 30.8 L RDW 18.8 H Plt Count 12 L* MPV 10.2 Absolute Neuts (auto) 0.6 Neutrophils % 19.1 L D Neutrophils % (Manual) 15.7 L D Band Neutrophils % 0.0 Lymphocytes % 27.8 Lymphocytes % (Manual) 77.4 H* Monocytes % 52.0 H Monocytes % (Manual) 2 L D Eosinophils % 0.3 Eosinophils % (Manual) 0.0 Basophils % 0.8 D Basophils % (Manual) 0.0 Myelocytes % (Man) 1 D Promyelocytes % (Man) 0 Blast Cells % (Manual) 0 Nucleated RBC % 1 H Metamyelocytes 0 D Hypochromia 0 Platelet Estimate Decreased Platelet Comment Present Polychromasia 1+ Poikilocytosis 3+ Anisocytosis 2+ Microcytosis 2+ Macrocytosis 0 Tear Drop Cells 1+ Acanthocytes (Spur) 2+ Schistocytes 1+ PT with INR INR PTT (Actin FS) Fibrinogen Puncture Site ABG pH ABG pCO2 at Pt Temp ABG pO2 at Pt Temp ABG HCO3 ABG O2 Sat (Measured) ABG O2 Content ABG Base Excess [place] Test O2 Delivery Device Oxygen Flow Rate Vent Mode Vent Rate Mechanical Rate PEEP Pressure Support Vent Sodium 125 L Potassium 4.9 Chloride 80 L Carbon Dioxide 21 Anion Gap 24 H BUN 52 H Creatinine 3.9 H Creat Clearance w eGFR 15.85 POC Glucometer 93.59895 Random Glucose 21 L* D Calcium 6.0 L* Phosphorus 10.0 H* D Magnesium 2.1 Total Bilirubin 2.1 H D AST 554 H ALT 384 H Alkaline Phosphatase 95 D Total Protein 3.6 L Albumin 1.5 L Random Vancomycin Aspergillus Antibody Beta-(1,3)-D-Glucan Blood Type Antibody Screen Crossmatch 12/13/17 12/13/17 12/13/17 05:30 07:40 08:07 WBC Corrected WBC (auto) RBC Hgb Hct MCV MCH MCHC RDW Plt Count MPV Absolute Neuts (auto) Neutrophils % Neutrophils % (Manual) Band Neutrophils % Lymphocytes % Lymphocytes % (Manual) Monocytes % Monocytes % (Manual) Eosinophils % Eosinophils % (Manual) Basophils % Basophils % (Manual) Myelocytes % (Man) Promyelocytes % (Man) Blast Cells % (Manual) Nucleated RBC % Metamyelocytes Hypochromia Platelet Estimate Platelet Comment Polychromasia Poikilocytosis Anisocytosis Microcytosis Macrocytosis Tear Drop Cells Acanthocytes (Spur) Schistocytes PT with INR 23.60 H INR 2.09 H PTT (Actin FS) 37.2 Fibrinogen 504.0 H Puncture Site Right radial ABG pH 6.94 L* D ABG pCO2 at Pt Temp 84.5 H* D ABG pO2 at Pt Temp 30.5 L* D ABG HCO3 17.2 L ABG O2 Sat (Measured) 31.4 L* ABG O2 Content 2.9 L* ABG Base Excess -14.1 L* [place] Test Positive O2 Delivery Device Mech vent Oxygen Flow Rate 100% Vent Mode A/c Vent Rate 28 Mechanical Rate Yes PEEP 8.0 Pressure Support Vent 500 Sodium Potassium Chloride Carbon Dioxide Anion Gap BUN Creatinine Creat Clearance w eGFR POC Glucometer Random Glucose Calcium Phosphorus Magnesium Total Bilirubin AST ALT Alkaline Phosphatase Total Protein Albumin Random Vancomycin 38.63 Aspergillus Antibody Beta-(1,3)-D-Glucan Blood Type Antibody Screen Crossmatch 12/13/17 12/13/17 12/13/17 08:20 14:10 14:20 WBC 5.9 D Corrected WBC (auto) RBC 2.68 L Hgb 7.2 L Hct 23.3 L MCV 86.8 MCH 26.8 MCHC 30.8 L RDW 17.6 H Plt Count 16 L* D MPV 10.2 Absolute Neuts (auto) 1.0 Neutrophils % 16.5 L Neutrophils % (Manual) 14.5 L Band Neutrophils % 2.2 Lymphocytes % 82.9 H D Lymphocytes % (Manual) 80.0 H* Monocytes % 0.3 L D Monocytes % (Manual) 0 L D Eosinophils % 0.3 Eosinophils % (Manual) 0.0 Basophils % 0.0 Basophils % (Manual) 0.0 Myelocytes % (Man) 1 Promyelocytes % (Man) 0 Blast Cells % (Manual) 0 Nucleated RBC % 1 H Metamyelocytes 0 Hypochromia 1+ Platelet Estimate Decreased Platelet Comment Present Polychromasia 0 Poikilocytosis 3+ Anisocytosis 3+ Microcytosis 3+ Macrocytosis 0 Tear Drop Cells Acanthocytes (Spur) 3+ Schistocytes 1+ PT with INR INR PTT (Actin FS) Fibrinogen Puncture Site ABG pH ABG pCO2 at Pt Temp ABG pO2 at Pt Temp ABG HCO3 ABG O2 Sat (Measured) ABG O2 Content ABG Base Excess [place] Test O2 Delivery Device Oxygen Flow Rate Vent Mode Vent Rate Mechanical Rate PEEP Pressure Support Vent Sodium Potassium Chloride Carbon Dioxide Anion Gap BUN Creatinine Creat Clearance w eGFR POC Glucometer 71.91399 Random Glucose 17 L* Calcium Phosphorus Magnesium Total Bilirubin AST ALT Alkaline Phosphatase Total Protein Albumin Random Vancomycin Aspergillus Antibody Beta-(1,3)-D-Glucan Blood Type Antibody Screen Crossmatch 12/13/17 12/13/17 12/13/17 14:20 17:49 21:35 WBC Corrected WBC (auto) RBC Hgb Hct MCV MCH MCHC RDW Plt Count MPV Absolute Neuts (auto) Neutrophils % Neutrophils % (Manual) Band Neutrophils % Lymphocytes % Lymphocytes % (Manual) Monocytes % Monocytes % (Manual) Eosinophils % Eosinophils % (Manual) Basophils % Basophils % (Manual) Myelocytes % (Man) Promyelocytes % (Man) Blast Cells % (Manual) Nucleated RBC % Metamyelocytes Hypochromia Platelet Estimate Platelet Comment Polychromasia Poikilocytosis Anisocytosis Microcytosis Macrocytosis Tear Drop Cells Acanthocytes (Spur) Schistocytes PT with INR INR PTT (Actin FS) Fibrinogen Puncture Site ABG pH ABG pCO2 at Pt Temp ABG pO2 at Pt Temp ABG HCO3 ABG O2 Sat (Measured) ABG O2 Content ABG Base Excess [place] Test O2 Delivery Device Oxygen Flow Rate Vent Mode Vent Rate Mechanical Rate PEEP Pressure Support Vent Sodium 126 L Potassium 5.3 H Chloride 81 L Carbon Dioxide 16 L D Anion Gap 29 H BUN 54 H Creatinine 3.8 H Creat Clearance w eGFR 16.33 POC Glucometer 104.16651 < 50 Random Glucose 45 L* D Calcium 5.5 L* Phosphorus Magnesium Total Bilirubin 2.5 H AST 771 H D ALT 393 H Alkaline Phosphatase 115 D Total Protein 3.2 L Albumin 1.4 L Random Vancomycin Aspergillus Antibody Beta-(1,3)-D-Glucan Blood Type Antibody Screen Crossmatch 12/14/17 12/14/17 00:33 02:18 WBC Corrected WBC (auto) RBC Hgb Hct MCV MCH MCHC RDW Plt Count MPV Absolute Neuts (auto) Neutrophils % Neutrophils % (Manual) Band Neutrophils % Lymphocytes % Lymphocytes % (Manual) Monocytes % Monocytes % (Manual) Eosinophils % Eosinophils % (Manual) Basophils % Basophils % (Manual) Myelocytes % (Man) Promyelocytes % (Man) Blast Cells % (Manual) Nucleated RBC % Metamyelocytes Hypochromia Platelet Estimate Platelet Comment Polychromasia Poikilocytosis Anisocytosis Microcytosis Macrocytosis Tear Drop Cells Acanthocytes (Spur) Schistocytes PT with INR INR PTT (Actin FS) Fibrinogen Puncture Site ABG pH ABG pCO2 at Pt Temp ABG pO2 at Pt Temp ABG HCO3 ABG O2 Sat (Measured) ABG O2 Content ABG Base Excess [place] Test O2 Delivery Device Oxygen Flow Rate Vent Mode Vent Rate Mechanical Rate PEEP Pressure Support Vent Sodium Potassium Chloride Carbon Dioxide Anion Gap BUN Creatinine Creat Clearance w eGFR POC Glucometer 51.07483 < 50 Random Glucose Calcium Phosphorus Magnesium Total Bilirubin AST ALT Alkaline Phosphatase Total Protein Albumin Random Vancomycin Aspergillus Antibody Beta-(1,3)-D-Glucan Blood Type Antibody Screen Crossmatch Active Medications Generic Name Dose Route Start Last Admin Trade Name Freq PRN Reason Stop Dose Admin Hydrocortisone Sodium Succinate 100 mg 12/13/17 10:00 12/14/17 01:45 Solu-Cortef - IVPB 100 mg Q8H-IV WALTER Administration Vasopressin 50 units/ Sodium 100 mls @ 4.8 mls/hr 12/10/17 16:00 12/13/17 16: 00 Chloride IVPB Not Given ASDIR WALTER Protocol 2.4 UNITS/HR Meropenem 1 gm/ Dextrose 100 mls @ 200 mls/hr 12/11/17 14:00 12/14/17 01:46 IVPB 200 mls/hr BID@0200,1400 WALTER Administration Levofloxacin 250 mg in 50 mls @ 50 mls/hr 12/11/17 10:00 12/13/17 09:11 Levaquin 250 Mg Premixed Ivpb - IVPB 50 mls/hr DAILY WALTER Administration Famotidine/Sodium Chloride 20 mg in 50 mls @ 100 mls/hr 12/11/17 10:00 21:55 Pepcid 20 Mg Premixed Ivpb - IVPB 100 mls/hr BID WALTER Administration Sodium Bicarbonate 150 meq/ 1,150 mls @ 100 mls/hr 12/11/17 12:00 12/13/17 20 :34 Dextrose IV Not Given Q11H WALTER Midazolam HCl 100 mg/ Sodium 100 mls @ 2 mls/hr 12/11/17 13:10 12/13/17 19:00 Chloride IVPB 4 mg/hr TITR WALTER 4 mls/hr Titration Protocol 2 MG/HR Voriconazole 400 mg/ Dextrose 290 mls @ 193.333 mls/hr 12/12/17 15:00 02:48 IVPB 193.333 mls/hr BID@0300,1500 WALTER Administration Norepinephrine Bitartrate 16, 1,000 mls @ 18.75 mls/hr 12/13/17 01:15 01:46 000 mcg/ Sodium Chloride IV 25 mcg/min TITR WALTER 93.75 mls/hr Administration Protocol 5 MCG/MIN Ganciclovir 310 mg/ Dextrose 100 mls @ 100 mls/hr 12/13/17 10:00 12/13/17 09: 13 IVPB 100 mls/hr Q24H WALTER Administration Dextrose 1,000 mls @ 100 mls/hr 12/14/17 02:41 12/14/17 02:49 D10w - IV 100 mls/hr ASDIR WALTER Administration Tbo-Filgrastim 300 mcg 12/10/17 10:00 12/13/17 09:11 Granix - SQ 300 mcg DAILY WALTER Administration ASSESSMENT/PLAN:
[2017-12-14] MEDS: SODIUM BICARBONATE 8.4% - 150 MEQ in DEXTROSE 5%-WATER - 1,000 ML IV SCH (06:01)
[2017-12-14 06:04] VITALS: BP 84/50; PULSE 112
[2017-12-14 06:04] LABS: EOS % 0.2 % (0-4.5); HEMATOCRIT 22.7 % (35.4-49); HEMOGLOBIN 7.2 GM/dL (11.7-16.9); LYMPH % 83.9 % (8-40); MCHC 31.7 g/dl (32.0-35.9); MEAN CELL VOLUME 88.1 fl (80-96); MEAN PLT VOLUME 8.2 fl (7.5-11.1); MONO % 0.2 % (3.8-10.2); NEUT % 15.7 % (42.8-82.8); RBC 2.57 M/mm3 (4.00-5.60); RDW 17.3 % (11.9-15.9)
[2017-12-14 06:15] LABS: INR 2.71 (0.82-1.09); PROTHROMBIN TIME (PATIENT) 30.6 SEC (9.7-13.0)
[2017-12-14 06:18] LABS: ACTIVATED PTT 45.8 SECONDS (25.2-36.5)
[2017-12-14 06:19] LABS: PLATELET COUNT 22 K/MM3 (134-434)
[2017-12-14 10:52] LABS: ACANTHOCYTES 1+; ANISOCYTOSIS 1+; MACROCYTOSIS 1+; OVALOCYTE 1+; PLATELET ESTIMATE DECREASED
== END 2017-12-14 05:32 | disposition expired | DRG 871 ==
LOC: FER 23:28 → JICU 12-10 06:09
PROVIDERS: ADMIT Internal Medicine; ATTEND Family Medicine
PROC: 5A1945Z Respiratory Ventilation, 24-96 Consecutive Hours (ICD-10-PCS; principal; 2017-12-10)
PROC: 0BH17EZ Insertion of Endotracheal Airway into Trachea, Via Natural or Artificial Opening (ICD-10-PCS; 2017-12-10)
PROC: 05HM33Z Insertion of Infusion Device into Right Internal Jugular Vein, Percutaneous Approach (ICD-10-PCS; 2017-12-10)
PROC: 30233R1 Transfusion of Nonautologous Platelets into Peripheral Vein, Percutaneous Approach (ICD-10-PCS; 2017-12-12)
PROC: 30233N1 Transfusion of Nonautologous Red Blood Cells into Peripheral Vein, Percutaneous Approach (ICD-10-PCS; 2017-12-13)
DX: A41.9 Sepsis, unspecified organism (principal); R65.21 Severe sepsis with septic shock; J18.9 Pneumonia, unspecified organism; J96.01 Acute respiratory failure with hypoxia; G93.41 Metabolic encephalopathy; I47.1 Supraventricular tachycardia; C85.90 Non-Hodgkin lymphoma, unspecified, unspecified site; N17.9 Acute kidney failure, unspecified; E87.2 Acidosis; J90 Pleural effusion, not elsewhere classified; D61.818 Other pancytopenia; D68.9 Coagulation defect, unspecified; D70.9 Neutropenia, unspecified; R50.81 Fever presenting with conditions classified elsewhere; J44.9 Chronic obstructive pulmonary disease, unspecified; F25.9 Schizoaffective disorder, unspecified; I10 Essential (primary) hypertension; B19.20 Unspecified viral hepatitis C without hepatic coma; I95.9 Hypotension, unspecified; F17.210 Nicotine dependence, cigarettes, uncomplicated; Z88.0 Allergy status to penicillin
CPT/HCPCS: 36415; 36430; 36511; 36600; 71045-TC-FY; 80048; 80053; 80307; 81003; 81015; 82533; 82550; 82784; 82803; 82947; 82962; 83605; 83615; 83735; 83880; 84100; 84484; 84550; 85025; 85384; 85610; 85730; 86480; 86850; 86900; 86901; 86922; 87040; 87070; 87086; 87102; 87116; 87186; 87205; 87206; 87210; 87252; 87305; 87449; 87633; 87899; 93005; 93010; 93306-TC; 94002; 94660; 99284-25; G0480; J0131; J1447; J7030; P9034; P9038; P9058